=== PATIENT | female | born 1975 | race Caucasian/White ===

== ENCOUNTER 2016-05-31 13:06 | Emergency (ER) | payer MEDICARE ==
--- NOTE | 2016-05-31 14:16 | EDM.PDOC ---
ED HISTORY OF PRESENT ILLNESS - General Chief Complaint: Respiratory Problem Stated Complaint: PNEMONIA/TOOTHACE Time Seen by Provider: 05/31/16 13:07 Source of Information: Reports: Patient History Limitations: Reports: No limitations - History of Present Illness INITIAL COMMENTS - FREE TEXT/NARRATIVE: History of present illness: [] Patient presents with cold symptoms with cough and chills. She has not measured any fevers denies being acutely short of breath but she is a smoker and has baseline level of difficulty breathing or exertion that is unchanged. Patient denies any vomiting or diarrhea, abdominal pain, sore throat or ear pain. Review of systems: As per history of present illness and below otherwise all systems reviewed and negative. Past medical history: As per history of present illness and as reviewed below otherwise noncontributory. Surgical history: As per history of present illness and as reviewed below otherwise noncontributory. Social history: No reported history of drug or alcohol abuse. Family history: As per history of present illness and as reviewed below otherwise noncontributory. Physical exam: General: Well developed, well nourished in NAD HEENT: Atraumatic, normocephalic, pupils reactive, negative for conjunctival pallor or scleral icterus, mucous membranes moist, throat clear, neck supple, nontender, trachea midline. Lungs: Clear to auscultation, breath sounds equal bilaterally, chest nontender. Heart: S1S2, regular, negative for clicks, rubs, or JVD. Abdomen: Soft, nondistended, nontender. Negative for masses or hepatosplenomegaly. Negative for costovertebral tenderness. Pelvis: Stable nontender. Genitourinary: Deferred. Rectal: Deferred. Extremities: Atraumatic, negative for cords or calf pain. Neurovascular unremarkable. Neuro: Awake, alert, oriented. Cranial nerves II through XII unremarkable. Cerebellum unremarkable. Motor and sensory unremarkable throughout. Exam nonfocal. Diagnostics: [] Chest x-ray and labs which are normal vital signs stable Therapeutics: [] Impression: [] Viral URI Plan: [] Followup PMD return if symptoms worsen Definitive disposition and diagnosis as appropriate pending reevaluation and review of above. - Related Data Allergies/ADRs: Allergies Allergy/AdvReac Type Severity Reaction Status Date / Time No Known Allergies Allergy Verified 05/31/16 13:16 Home Meds: Home Meds ARIPiprazole [Abilify] 5 mg PO DAILY 10/09/14 [History] Lisinopril 20 mg PO DAILY 05/31/16 [History] atoMOXetine HCl [Strattera] 1 cap PO DAILY 05/31/16 [History] lamoTRIgine [Lamictal] 50 mg PO DAILY 05/31/16 [History] Past Medical History - Past Health History Medical/Surgical History: Denies Medical/Surgical History Cardiovascular History: Reports: Hypertension Social & Family History - Family History Family Medical History: Noncontributory - Tobacco Use Smoking Status *Q: Current Every Day Smoker Years of Tobacco use: 20 Packs/Tins Daily: 1 Used Tobacco, but Quit: No Second Hand Smoke Exposure: Yes - Alcohol Use Days Per Week of Alcohol Use: 0 - Recreational Drug Use Recreational Drug Use: Yes Drug Use in Last 12 Months: Yes Recreational Drug Type: Reports: Marijuana/Hashish Recreational Drug Use Frequency: Daily - Living Situation & Occupation Living situation: Reports: single Occupation: employed ED ROS GENERAL - Review of Systems Review Of Systems: See Below (See history of present illness) ED EXAM, GENERAL - Physical Exam Exam: See Below (See history of present illness) Course - Vital Signs Last Recorded V/S: Last Vital Signs Temp 35.9 C 05/31/16 13:06 Pulse 114 H 05/31/16 13:06 Resp 18 05/31/16 13:06 BP 140/93 H 05/31/16 13:06 Pulse Ox 96 05/31/16 13:06 - Orders/Labs/Meds Orders: Active Orders 24 hr Category Date Time Status Chest 2V [CR] Stat Exams 05/31/16 13:20 Taken Labs: Laboratory Tests 05/31/16 05/31/16 Range/Units 13:27 13:27 WBC 8.27 (4.0-11.0) K/uL RBC 5.21 (4.30-5.90) M/uL Hgb 16.2 H (12.0-16.0) g/dL Hct 47.6 H (36.0-46.0) % MCV 91.4 (80.0-98.0) fL MCH 31.1 (27.0-32.0) pg MCHC 34.0 (31.0-37.0) g/dL RDW Std Deviation 44.2 (28.0-62.0) fl RDW Coeff of Kalpesh 13 (11.0-15.0) % Plt Count 333 (150-400) K/uL MPV 9.00 (7.40-12.00) fL Neut % (Auto) 63.8 (48.0-80.0) % Lymph % (Auto) 22.2 (16.0-40.0) % Norman % (Auto) 12.2 (0.0-15.0) % Eos % (Auto) 1.3 (0.0-7.0) % Baso % (Auto) 0.5 (0.0-1.5) % Neut # 5.3 (1.4-5.7) K/uL Lymph # 1.8 (0.6-2.4) K/uL Norman # 1.0 H (0.0-0.8) K/uL Eos # 0.1 (0.0-0.7) K/uL Baso # 0.0 (0.0-0.1) K/uL Nucleated RBC % 0.0 /100WBC Nucleated RBCs # 0 K/uL Sodium 136 (136-146) mmol/L Potassium 4.8 (3.5-5.1) mmol/L Chloride 104 (98-110) mmol/L Carbon Dioxide 24 (21-31) mmol/L BUN 10 (6.0-23.0) mg/dL Creatinine 1.1 (0.6-1.5) mg/dL Est Cr Clr Drug Dosing 67.89 mL/min Estimated GFR (MDRD) 54.7 ml/min Glucose 82 (60-110) mg/dL Calcium 9.2 (8.8-10.8) mg/dL Total Bilirubin 0.3 (0.1-1.5) mg/dL AST 22 (5-40) IU/L ALT 36 (8-54) IU/L Alkaline Phosphatase 112 (40-150) Total Protein 7.5 (6.0-8.0) g/dL Albumin 4.1 (3.5-5.0) g/dL Globulin 3.4 (2.0-3.5) g/dL Albumin/Globulin Ratio 1.2 L (1.3-2.8) Departure - Departure Time of Disposition: 14:15 Disposition: Home, Self-Care 01 Condition: good Clinical Impression: Viral URI Forms: ED Department Discharge Additional Instructions: The following information is given to patients seen in the emergency department who are being discharged to home. This information is to outline your options for follow-up care. We provide all patients seen in our emergency department with a follow-up referral. The need for follow-up, as well as the timing and circumstances, are variable depending upon the specifics of your emergency department visit. If you don't have a primary care physician on staff, we will provide you with a referral. We always advise you to contact your personal physician following an emergency department visit to inform them of the circumstance of the visit and for follow-up with them and/or the need for any referrals to a consulting specialist. The emergency department will also refer you to a specialist when appropriate. This referral assures that you have the opportunity for follow-up care with a specialist. All of these measure are taken in an effort to provide you with optimal care, which includes your follow-up. Under all circumstances we always encourage you to contact your private physician who remains a resource for coordinating your care. When calling for follow-up care, please make the office aware that this follow-up is from your recent emergency room visit. If for any reason you are refused follow-up, please contact the [facility] Emergency Department at and asked to speak to the emergency department charge nurse. Use her inhaler as directed Tylenol or Motrin for fevers and chills return here if symptoms worsen otherwise follow up with your PMD as needed [facility] [address] [place] [id number] - My Orders Last 24 Hours: My Active Orders 05/31/16 13:20 Chest 2V [CR] Stat - Assessment/Plan Last 24 Hours: My Active Orders 05/31/16 13:20 Chest 2V [CR] Stat
[2016-05-31 14:28] VITALS: BP 155/97
--- NOTE | 2016-06-03 14:53 | CR ---
EXAM DATE: 05/31/16 PATIENT'S AGE: 40 Patient: EUGENE DEMPSEY Facility: [place], [place] Site . Site : 1975 Study: XRay Chest [id number] 1:52:10 PM Ordering Physician: Doctor Kunz Final Report: INDICATION: sick/cold SOB 2 View Chest. Findings: The lungs are clear. Pulmonary vascularity, mediastinum and cardiac silhouette are within normal limits. No effusions and no pneumothorax. Osseous structures appear unremarkable. Impression: No evidence of acute cardiopulmonary disease. Dictated by: Moise Gold MD @ 05/31/2016 13:55:40 (Electronic Signature) Report Signed by Proxy and Original Signed Document filed in the Medical Record. MTDD
== END 2016-05-31 14:25 | disposition home or self-care (01) ==
LOC: MW.ED 13:06
DX: J06.9 Acute upper respiratory infection, unspecified (principal); I10 Essential (primary) hypertension; F17.210 Nicotine dependence, cigarettes, uncomplicated; Z79.899 Other long term (current) drug therapy
CPT/HCPCS: 36415; 71020; 71020-26; 80053; 85025; 99282; 99283

== ENCOUNTER → 2016-07-17 | Outpatient (CLI) | payer MEDICARE | LOC: MW.CHFP 08:00 | PROVIDERS: ATTEND Nurse Practitioner Family | DX: F32.9 Major depressive disorder, single episode, unspecified (principal); F31.9 Bipolar disorder, unspecified; Z86.010 Personal history of colon polyps | CPT/HCPCS: G0463 ==

== ENCOUNTER 2017-05-15 10:41 | Day surgery (SDC) | payer MEDICARE, OTHER ==
[~2017-05-15 10:41] MED LIST: Lactated Ringers 1,000 ML IV SCH; Sodium Chloride 0.9% 10 ML Syringe FLUSH PRN; Sodium Chloride 0.9% 2.5 ML Syringe FLUSH PRN
--- NOTE | 2017-05-15 12:11 | PCM.PREANE ---
Preanesthetic Assessment - Anesthesia/Transfusion/Family Hx Anesthesia History: Prior Anesthesia Without Reaction Other Type of Anesthesia Reaction Comment: states she needs "more" anesthesia because she is a redhead Family History of Anesthesia Reaction: No Transfusion History: No Prior Transfusion(s) Intubation History: Unknown - Review of Systems General: No Symptoms Pulmonary: No Symptoms Cardiovascular: No Symptoms Gastrointestinal: Abdominal Pain, Constipation Neurological: No Symptoms Other: Reports: None - Physical Assessment O2 Sat by Pulse Oximetry: 99 Respiratory Rate: 16 Vital Signs: Last Vital Signs Temp 37 C 05/15/17 10:59 Pulse 100 05/15/17 10:59 Resp 16 05/15/17 10:59 BP 125/71 05/15/17 10:59 Pulse Ox 99 05/15/17 10:59 Height: 1.73 m Weight: 108.862 kg ASA Class: 3 Mental Status: Alert & Oriented x3 Airway Class: Mallampati = 2 Dentition: Reports: Normal Dentition Thyro-Mental Finger Breadths: 2 Mouth Opening Finger Breadths: 2 ROM/Head Extension: Limited/Partial Lungs: Clear to Auscultation, Normal Respiratory Effort Cardiovascular: Regular Rate, Regular Rhythm - Allergies Allergies/Adverse Reactions: Allergies Allergy/AdvReac Type Severity Reaction Status Date / Time ciprofloxacin [From Cipro] Allergy Hallucinati Verified 05/14/17 11:14 ons - Blood Blood Available: No - Anesthesia Plan Pre-Op Medication Ordered: None - Acknowledgements Anesthesia Type Planned: MAC Pt an Appropriate Candidate for the Planned Anesthesia: Yes Alternatives and Risks of Anesthesia Discussed w Pt/Guardian: Yes Pt/Guardian Understands and Agrees with Anesthesia Plan: Yes PreAnesthesia Questionnaire - Past Health History Medical/Surgical History: Denies Medical/Surgical History HEENT History: Reports: Sinusitis Other HEENT History: wears glasses/contacts Cardiovascular History: Reports: Hypertension Respiratory History: Reports: Asthma Other Respiratory History: uses inhaler weekly Gastrointestinal History: Reports: Chronic Constipation, Colon Polyp, GERD, PUD 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, Musculoskeletal History: Reports: Other (See Below) Other Musculoskeletal History: states "I think I have fibromalgia" not diagnosed Psychiatric History: Reports: ADHD, Anxiety, Bipolar, Depression Endocrine/Metabolic History: Reports: Obesity/BMI 30+ (BMI 36.5) Dermatologic History: Reports: Other (See Below) Other Dermatologic History: dermatagraphism - Past Surgical History HEENT Surgical History: Reports: Tonsillectomy GI Surgical History: Reports: Colonoscopy (7 years ago), Other (See Below) Other GI Surgeries/Procedures: benign tumor removed from abdomen Female Surgical History: Reports: LEEP, Other (See Below) Other Female Surgeries/Procedures: laparoscopy for removal of endometriosis - SUBSTANCE USE Smoking Status *Q: Current Every Day Smoker (1/2 ppd) Tobacco Use Within Last Twelve Months: Cigarettes Second Hand Smoke Exposure: Yes Days Per Week of Alcohol Use: 0 Recreational Drug Use History: Yes Recreational Drug Type: Reports: Marijuana/Hashish Recreational Drug Last Use: 1 month ago- states uses "occasionally" - HOME MEDS Home Medications: Home Meds ARIPiprazole [Abilify] 10 mg PO DAILY 10/09/14 [History] Lisinopril 10 mg PO DAILY 05/31/16 [History] atoMOXetine HCl [Strattera] 100 mg PO DAILY 05/31/16 [History] lamoTRIgine [Lamictal] 100 mg PO DAILY 05/31/16 [History] Albuterol [Proair HFA] 1 - 2 puff INH Q4H PRN 05/14/17 [History] Norethindrone [Paulina] 0.35 mg PO DAILY 05/14/17 [History] atoMOXetine [Strattera] 40 mg PO DAILY 05/14/17 [History] - CURRENT (IN HOUSE) MEDS Current Meds: Current Medications Lactated Ringer's (Ringers, Lactated) 1,000 mls @ 125 mls/hr IV ASDIRECTED ESTEPHANIE Sodium Chloride (Saline Flush) 10 ml FLUSH ASDIRECTED PRN PRN Reason: Keep Vein Open Sodium Chloride (Saline Flush) 2.5 ml FLUSH ASDIRECTED PRN PRN Reason: Keep Vein Open Sodium Chloride (Saline Flush) 10 ml FLUSH ASDIRECTED PRN PRN Reason: Keep Vein Open Sodium Chloride (Saline Flush) 2.5 ml FLUSH ASDIRECTED PRN PRN Reason: Keep Vein Open
[2017-05-15] MEDS ORDERED: Propofol 200 MG/20 ML SDV ONE (12:35)
[2017-05-15] MEDS ORDERED: fentaNYL 100 MCG/2 ML SDV ONE (12:35)
[2017-05-15] MEDS ORDERED: Midazolam 1 MG/ML 2 ML SDV ONE (12:35)
--- NOTE | 2017-05-15 13:33 | PCM.OPNOTE ---
- General Post-Op/Procedure Note Date of Surgery/Procedure: 05/15/17 Operative Procedure(s): Diagnostic colonoscopy Findings: Grade 3 hemorrhoids, sigmoid colon polyp, transverse colon polyp x 2 Pre Op Diagnosis: Change in bowel habits Post-Op Diagnosis: Colon polyps, grade 3 hemorrhoids, IBS Anesthesia Technique: MAC Primary Surgeon: Moraima Iverson Condition: Good
[2017-05-15 13:54] VITALS: BP 114/76
--- NOTE | 2017-05-15 20:44 | OR ---
SURGEON: MORAIMA IVERSON MD DATE OF PROCEDURE: 05/15/2017 PREOPERATIVE DIAGNOSIS: Change in bowel habits. POSTOPERATIVE DIAGNOSES: 1. Grade 3 hemorrhoids. 2. Transverse colon polyps x2. 3. Sigmoid colon polyp. PROCEDURE PERFORMED: Diagnostic colonoscopy. ENDOSCOPIST: Moraima Iverson MD. ANESTHESIA: MAC. INSTRUMENT USED: Olympus colonoscope. EXTENT OF EXAM: To the cecum. PREPARATION: Good. LIMITATIONS: None. INDICATION FOR EXAMINATION: The patient is a 41-year-old female, who presents with abrupt change in her bowel habits. The decision was made to perform a diagnostic colonoscopy. We discussed the procedure, expected perioperative course, and risks including bleeding, infection, or damage to surrounding structures including perforation. The patient verbalized understanding and wishes to proceed. PROCEDURE IN DETAIL: The patient was brought to the endoscopy suite and placed in the left lateral decubitus position. A time-out was completed verifying the patient's name, age, date of , allergies, and procedure to be performed. Monitored anesthesia care was induced and continuous oxygen was provided via nasal cannula throughout the procedure. After adequate sedation was achieved, a digital rectal exam was performed. This exam was within normal limits. A well lubricated colonoscope was inserted in the rectum and advanced under direct visualization to the level of the cecum. Cecum was identified by both visual and anatomic landmarks. A photograph was taken of the cecal cap, however, I was unable to retroflex the scope within the cecum due to looping of the scope more proximally. The scope was then fully withdrawn while examining the color, texture, anatomy, and integrity of the mucosa from the cecum to the anal canal. The patient was found to have two polyps within the transverse colon and these were removed using a cold biopsy forceps. The patient had a 3 to 4 mm polyp in the distal sigmoid colon at 20 cm. This was removed using a cold snare. The scope was then brought into the rectum and retroflexed to allow visualization of the anal canal opening. The patient was found to have grade 3 hemorrhoids. The scope was then straightened out and removed from the patient. The cecum to anus time was 26 minutes. The patient tolerated the procedure well and was taken to the PACU in stable condition. ENDOSCOPIC DIAGNOSES: 1. Grade 3 hemorrhoids. 2. Transverse colon polyps x2. 3. Sigmoid colon polyp. RECOMMENDATIONS: Follow up in clinic in 2 weeks. NANETTE / MODL /[id number]
== END 2017-05-15 14:09 | disposition home or self-care (01) ==
LOC: MW.SDS 10:41
PROVIDERS: ATTEND Surgery
DX: D12.5 Benign neoplasm of sigmoid colon (principal); D12.3 Benign neoplasm of transverse colon; K64.2 Third degree hemorrhoids; J45.909 Unspecified asthma, uncomplicated; F31.9 Bipolar disorder, unspecified; I10 Essential (primary) hypertension; J32.9 Chronic sinusitis, unspecified; M54.12 Radiculopathy, cervical region; F17.210 Nicotine dependence, cigarettes, uncomplicated; E66.9 Obesity, unspecified; Z68.36 Body mass index [BMI] 36.0-36.9, adult; Z87.19 Personal history of other diseases of the digestive system; Z88.1 Allergy status to other antibiotic agents; Z79.899 Other long term (current) drug therapy; Z90.89 Acquired absence of other organs
CPT/HCPCS: 45380; 45385; 81025; 88305; J2250; J3010; 00811; J2704

== ENCOUNTER 2017-06-01 08:39 | Emergency (ER) | payer MEDICARE ==
--- NOTE | 2017-06-01 09:57 | EDM.PDOCBH ---
ED HPI GENERAL MEDICAL PROBLEM - General Chief Complaint: Behavioral/Psych Stated Complaint: MENTAL ISSUES Time Seen by Provider: 06/01/17 09:10 Source of Information: Reports: Patient History Limitations: Reports: No Limitations - History of Present Illness INITIAL COMMENTS - FREE TEXT/NARRATIVE: History of present illness: []Patient has a history of bipolar disorder and has been manic and hallucinating. She has not slept in 4 days she denies being suicidal or homicidal as a good family support system. She called police to bring her into the ER. On arrival here she is cooperative and not has suicidal or homicidal. Review of systems: As per history of present illness and below otherwise all systems reviewed and negative. Past medical history: As per history of present illness and as reviewed below otherwise noncontributory. Surgical history: As per history of present illness and as reviewed below otherwise noncontributory. Social history: No reported history of drug or alcohol abuse. Family history: As per history of present illness and as reviewed below otherwise noncontributory. Physical exam: General: Well developed, well nourished in NAD HEENT: Atraumatic, normocephalic, pupils reactive, negative for conjunctival pallor or scleral icterus, mucous membranes moist, throat clear, neck supple, nontender, trachea midline. Lungs: Clear to auscultation, breath sounds equal bilaterally, chest nontender. Heart: S1S2, regular, negative for clicks, rubs, or JVD. Abdomen: Soft, nondistended, nontender. Negative for masses or hepatosplenomegaly. Negative for costovertebral tenderness. Pelvis: Stable nontender. Genitourinary: Deferred. Rectal: Deferred. Extremities: Atraumatic, negative for cords or calf pain. Neurovascular unremarkable. Neuro: Awake, alert, oriented. Cranial nerves II through XII unremarkable. Cerebellum unremarkable. Motor and sensory unremarkable throughout. Exam nonfocal. Diagnostics: [] Therapeutics: []Observed in the ED, discussion with family at the bedside performing a plan to discharge her home safely. Impression: []Bipolar disorder, insomnia Plan: []Ativan daily at bedtime Definitive disposition and diagnosis as appropriate pending reevaluation and review of above. - Related Data Allergies Allergy/AdvReac Type Severity Reaction Status Date / Time ciprofloxacin [From Cipro] Allergy Hallucinati Verified 05/14/17 11:14 ons Home Meds: Home Meds ARIPiprazole [Abilify] 10 mg PO DAILY 10/09/14 [History] Lisinopril 10 mg PO DAILY 05/31/16 [History] atoMOXetine HCl [Strattera] 100 mg PO DAILY 05/31/16 [History] lamoTRIgine [Lamictal] 100 mg PO DAILY 05/31/16 [History] Albuterol [Proair HFA] 1 - 2 puff INH Q4H PRN 05/14/17 [History] Norethindrone [Paulina] 0.35 mg PO DAILY 05/14/17 [History] atoMOXetine [Strattera] 40 mg PO DAILY 05/14/17 [History] LORazepam [Ativan] 0.5 mg PO QPM PRN #5 tablet 06/01/17 [Rx] Past Medical History - Past Health History Medical/Surgical History: Denies Medical/Surgical History HEENT History: Reports: Sinusitis Other HEENT History: wears glasses/contacts Cardiovascular History: Reports: Hypertension Respiratory History: Reports: Asthma Other Respiratory History: uses inhaler weekly Gastrointestinal History: Reports: Chronic Constipation, Colon Polyp, GERD, PUD 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, Musculoskeletal History: Reports: Other (See Below) Other Musculoskeletal History: states "I think I have fibromalgia" not diagnosed Psychiatric History: Reports: ADHD, Bipolar, Depression Endocrine/Metabolic History: Reports: Obesity/BMI 30+ Dermatologic History: Reports: Other (See Below) Other Dermatologic History: dermatagraphism - Past Surgical History HEENT Surgical History: Reports: Tonsillectomy GI Surgical History: Reports: Colonoscopy, Other (See Below) Other GI Surgeries/Procedures: benign tumor removed from abdomen Female Surgical History: Reports: LEEP, Other (See Below) Other Female Surgeries/Procedures: laparoscopy for removal of endometriosis Social & Family History - Family History Family Medical History: Noncontributory - Tobacco Use Smoking Status *Q: Current Every Day Smoker Years of Tobacco use: 20 Packs/Tins Daily: 0.5 Used Tobacco, but Quit: No Second Hand Smoke Exposure: Yes - Caffeine Use Caffeine Use: Reports: Coffee, Energy Drinks, Soda, Tea - Alcohol Use Days Per Week of Alcohol Use: 0 - Recreational Drug Use Recreational Drug Use: Yes Drug Use in Last 12 Months: Yes Recreational Drug Type: Reports: Marijuana/Hashish Recreational Drug Use Frequency: Not Used In Over 1 Month Recreational Drug Last Use: 1 month ago- states uses "occasionally" - Living Situation & Occupation Living situation: Reports: Single Occupation: Employed ED ROS GENERAL - Review of Systems Review Of Systems: See Below (See history of present illness) ED EXAM, BEHAVIORAL HEALTH - Physical Exam Exam: See Below (The history of present illness) COURSE, BEHAVIORAL HEALTH COMP - Course Vital Signs: Last Vital Signs Temp 98.1 F 06/01/17 10:17 Pulse 106 H 06/01/17 10:17 Resp 16 06/01/17 10:17 BP 154/110 H 06/01/17 10:17 Pulse Ox 97 06/01/17 10:17 Departure - Departure Time of Disposition: 10:31 Disposition: Home, Self-Care 01 Condition: Good Clinical Impression: Bipolar disorder Qualifiers: Active/Remission status: currently active Current bipolar episode type: hypomanic Qualified Code(s): F31.0 - Bipolar disorder, current episode hypomanic Insomnia Qualifiers: Insomnia type: due to other mental disorder Qualified Code(s): F51.05 - Insomnia due to other mental disorder; F99 - Mental disorder, not otherwise specified; F99 - Mental disorder, not otherwise specified - Discharge Information Prescriptions: LORazepam [Ativan] 0.5 mg PO QPM PRN #5 tablet PRN Reason: Insomnia Referrals: Kristopher Zepeda MD [Primary Care Provider] - Forms: ED Department Discharge Additional Instructions: The following information is given to patients seen in the emergency department who are being discharged to home. This information is to outline your options for follow-up care. We provide all patients seen in our emergency department with a follow-up referral. The need for follow-up, as well as the timing and circumstances, are variable depending upon the specifics of your emergency department visit. If you don't have a primary care physician on staff, we will provide you with a referral. We always advise you to contact your personal physician following an emergency department visit to inform them of the circumstance of the visit and for follow-up with them and/or the need for any referrals to a consulting specialist. The emergency department will also refer you to a specialist when appropriate. This referral assures that you have the opportunity for follow-up care with a specialist. All of these measure are taken in an effort to provide you with optimal care, which includes your follow-up. Under all circumstances we always encourage you to contact your private physician who remains a resource for coordinating your care. When calling for follow-up care, please make the office aware that this follow-up is from your recent emergency room visit. If for any reason you are refused follow-up, please contact the [facility] Emergency Department at and asked to speak to the emergency department charge nurse. Ativan 2 at bedtime 5 tablets prescribed. [facility] [address] [place] [id number]
[2017-06-01 10:50] VITALS: BP 139/101
== END 2017-06-01 10:46 | disposition home or self-care (01) ==
LOC: MW.ED 08:39
DX: F31.0 Bipolar disorder, current episode hypomanic (principal); F51.05 Insomnia due to other mental disorder; I10 Essential (primary) hypertension; J45.909 Unspecified asthma, uncomplicated; K21.9 Gastro-esophageal reflux disease without esophagitis; F17.210 Nicotine dependence, cigarettes, uncomplicated; Z79.899 Other long term (current) drug therapy; Z88.1 Allergy status to other antibiotic agents
CPT/HCPCS: 99283

== ENCOUNTER 2017-06-14 11:20 | Emergency (ER) | payer MEDICARE ==
[2017-06-14] MEDS ORDERED: Sodium Chloride 0.9% 10 ML Syringe FLUSH PRN (11:50)
[2017-06-14] MEDS ORDERED: Sodium Chloride 0.9% 2.5 ML Syringe FLUSH PRN (11:50)
--- NOTE | 2017-06-14 11:50 | EDM.PDOC ---
ED HPI GENERAL MEDICAL PROBLEM - General Chief Complaint: Chest Pain Stated Complaint: CHEST PAIN Time Seen by Provider: 06/14/17 11:36 Source of Information: Reports: Patient History Limitations: Reports: No Limitations - History of Present Illness INITIAL COMMENTS - FREE TEXT/NARRATIVE: HISTORY AND PHYSICAL: History of present illness: Lindsey is a 41-year-old female here with complaint of chest pain and shortness of breath. Patient has a history of bipolar disorder and scattered thought process. She states that she has had chest pain on and off for the past 2 weeks and shortness of breath. She has been using her rescue inhaler which does help. She denies fever. Review of systems: As per history of present illness and below otherwise all systems reviewed and negative. Past medical history: As per history of present illness and as reviewed below otherwise noncontributory. Surgical history: As per history of present illness and as reviewed below otherwise noncontributory. Social history: Current every day smoker Denies illicit drug use. Family history: As per history of present illness and as reviewed below otherwise noncontributory. Physical exam: HEENT: Atraumatic, normocephalic, pupils reactive, negative for conjunctival pallor or scleral icterus, mucous membranes moist, throat clear, neck supple, nontender, trachea midline. Lungs: Diffuse rhonchi and end expiratory wheezing. She has tenderness to palpation of anterior chest wall. Heart: Tachycardic, S1S2, negative for clicks, rubs, or JVD. Abdomen: Soft, nondistended, mild tenderness to palpation of epigastrum. Negative for masses or hepatosplenomegaly. Negative for costovertebral tenderness. Pelvis: Stable nontender. Genitourinary: Deferred. Rectal: Deferred. Extremities: Atraumatic, negative for cords or calf pain. Neurovascular unremarkable. Neuro: Awake, alert, oriented. Cranial nerves II through XII unremarkable. Cerebellum unremarkable. Motor and sensory unremarkable throughout. Exam nonfocal. Diagnostics: [EKG, chest x-ray, CBC, CMP, TSH, troponin] Therapeutics: [DuoNeb - patient reports improvement in chest pressure and breathing with DuoNeb. Solu-Medrol] Impression: [Reactive airway disease] Plan: [Chest x-ray unremarkable. EKG shows sinus tachycardia. CBC, CMP, troponin, and TSH unremarkable. Patient instructed to continue using her rescue inhaler every 4-6 hours as needed and take Medrol Dosepak as instructed. Advised to follow-up with her primary care provider.] Definitive disposition and diagnosis as appropriate pending reevaluation and review of above. Onset: Gradual Duration: Week(s): (2), Intermittent, Waxing/Waning Location: Reports: Chest, Abdomen Quality: Reports: Pressure Severity: Mild Improves with: Reports: Rest Worsens with: Reports: Movement Associated Symptoms: Reports: Cough, Shortness of Breath. Denies: cough w sputum, Diaphoresis, Fever/Chills, Nausea/Vomiting Left Chest Pain Score (Numeric/FACES): 5 - Related Data Allergies Allergy/AdvReac Type Severity Reaction Status Date / Time ciprofloxacin [From Cipro] Allergy Hallucinati Verified 06/14/17 11:26 ons Home Meds: Home Meds ARIPiprazole [Abilify] 10 mg PO DAILY 10/09/14 [History] Lisinopril 10 mg PO DAILY 05/31/16 [History] atoMOXetine HCl [Strattera] 100 mg PO DAILY 05/31/16 [History] lamoTRIgine [Lamictal] 100 mg PO DAILY 05/31/16 [History] Albuterol [Proair HFA] 1 - 2 puff INH Q4H PRN 05/14/17 [History] Norethindrone [Paulina] 0.35 mg PO DAILY 05/14/17 [History] atoMOXetine [Strattera] 40 mg PO DAILY 05/14/17 [History] LORazepam [Ativan] 0.5 mg PO QPM PRN #5 tablet 06/01/17 [Rx] methylPREDNISolone [Medrol] 4 mg PO ASDIRECTED #1 tab.ds.pk 06/14/17 [Rx] Past Medical History - Past Health History Medical/Surgical History: Denies Medical/Surgical History HEENT History: Reports: Sinusitis Other HEENT History: wears glasses/contacts Cardiovascular History: Reports: Hypertension Respiratory History: Reports: Asthma Other Respiratory History: uses inhaler weekly Gastrointestinal History: Reports: Chronic Constipation, Colon Polyp, GERD, PUD [employer] RECEPTIONIST History: Reports: 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, Musculoskeletal History: Reports: Other (See Below) Other Musculoskeletal History: states "I think I have fibromalgia" not diagnosed Psychiatric History: Reports: ADHD, Bipolar, Depression Endocrine/Metabolic History: Reports: Obesity/BMI 30+ Dermatologic History: Reports: Other (See Below) Other Dermatologic History: dermatagraphism - Past Surgical History HEENT Surgical History: Reports: Tonsillectomy GI Surgical History: Reports: Colonoscopy, Other (See Below) Other GI Surgeries/Procedures: benign tumor removed from abdomen Female Surgical History: Reports: LEEP, Other (See Below) Other Female Surgeries/Procedures: laparoscopy for removal of endometriosis Social & Family History - Family History Family Medical History: Noncontributory - Tobacco Use Smoking Status *Q: Current Every Day Smoker Years of Tobacco use: 20 Packs/Tins Daily: 0.5 Used Tobacco, but Quit: No Second Hand Smoke Exposure: Yes - Caffeine Use Caffeine Use: Reports: Coffee, Soda - Alcohol Use Days Per Week of Alcohol Use: 0 - Recreational Drug Use Recreational Drug Use: Yes Drug Use in Last 12 Months: Yes Recreational Drug Type: Reports: Marijuana/Hashish Other Recreational Drug Type: occasional use Recreational Drug Use Frequency: Not Used In Over 1 Month Recreational Drug Last Use: 1 month ago- states uses "occasionally" - Living Situation & Occupation Living situation: Reports: Single Occupation: Employed ED ROS GENERAL - Review of Systems Review Of Systems: ROS reveals no pertinent complaints other than HPI. ED EXAM, GENERAL - Physical Exam Exam: See Below (see dictation) Course - Vital Signs Last Recorded V/S: Last Vital Signs Temp 35.9 C 06/14/17 11:21 Pulse 118 H 06/14/17 11:21 Resp 20 06/14/17 11:21 BP 114/76 06/14/17 11:21 Pulse Ox - Orders/Labs/Meds Orders: Active Orders 24 hr Category Date Time Status EKG Documentation Completion [RC] STAT Care 06/14/17 11:50 Active Pulse Oximetry [RC] ASDIRECTED Care 06/14/17 11:50 Active RT Aerosol Therapy [RC] ASDIRECTED Care 06/14/17 11:53 Active Chest 2V [CR] Stat Exams 06/14/17 11:52 Taken Sodium Chloride 0.9% [Saline Flush] Med 06/14/17 11:50 Active 10 ml FLUSH ASDIRECTED PRN Sodium Chloride 0.9% [Saline Flush] Med 06/14/17 11:50 Active 2.5 ml FLUSH ASDIRECTED PRN Saline Lock Insert [OM.PC] Stat [facility] 06/14/17 11:50 Ordered Medication Orders Sodium Chloride (Saline Flush) 10 ml FLUSH ASDIRECTED PRN PRN Reason: Keep Vein Open Sodium Chloride (Saline Flush) 2.5 ml FLUSH ASDIRECTED PRN PRN Reason: Keep Vein Open Labs: Laboratory Tests 06/14/17 06/14/17 Range/Units 11:25 11:25 WBC 10.78 (4.0-11.0) K/uL RBC 5.07 (4.30-5.90) M/uL Hgb 15.8 (12.0-16.0) g/dL Hct 45.9 (36.0-46.0) % MCV 90.5 (80.0-98.0) fL MCH 31.2 (27.0-32.0) pg MCHC 34.4 (31.0-37.0) g/dL RDW Std Deviation 46.2 (28.0-62.0) fl RDW Coeff of Kalpesh 14 (11.0-15.0) % Plt Count 396 (150-400) K/uL MPV 8.90 (7.40-12.00) fL Neut % (Auto) 53.5 (48.0-80.0) % Lymph % (Auto) 37.3 (16.0-40.0) % Meagher % (Auto) 6.2 (0.0-15.0) % Eos % (Auto) 2.5 (0.0-7.0) % Baso % (Auto) 0.5 (0.0-1.5) % Neut # (Auto) 5.8 H (1.4-5.7) K/uL Lymph # (Auto) 4.0 H (0.6-2.4) K/uL Meagher # (Auto) 0.7 (0.0-0.8) K/uL Eos # (Auto) 0.3 (0.0-0.7) K/uL Baso # (Auto) 0.1 (0.0-0.1) K/uL Nucleated RBC % 0.0 /100WBC Nucleated RBCs # 0 K/uL Sodium 137 (136-145) mmol/L Potassium 3.6 (3.5-5.1) mmol/L Chloride 101 (98-107) mmol/L Carbon Dioxide 28.3 (21.0-32.0) mmol/L BUN 25 H (7.0-18.0) mg/dL Creatinine 1.6 H (0.6-1.0) mg/dL Est Cr Clr Drug Dosing 46.21 mL/min Estimated GFR (MDRD) 35.3 ml/min Glucose 97 (74-106) mg/dL Calcium 9.2 (8.5-10.1) mg/dL Total Bilirubin 0.4 (0.2-1.0) mg/dL AST 20 (15-37) IU/L ALT 31 (14-63) IU/L Alkaline Phosphatase 97 (46-116) U/L Troponin I < 0.050 (0.000-0.056) ng/mL Total Protein 7.4 (6.4-8.2) g/dL Albumin 3.8 (3.4-5.0) g/dL Globulin 3.6 H (2.0-3.5) g/dL Albumin/Globulin Ratio 1.1 L (1.3-2.8) TSH 3rd Generation 2.81 (0.36-3.74) uIU/mL Meds: Medications Generic Name Dose Route Start Last Admin Trade Name Freq PRN Reason Stop Dose Admin Sodium Chloride 10 ml 06/14/17 11:50 Saline Flush FLUSH ASDIRECTED PRN Keep Vein Open Sodium Chloride 2.5 ml 06/14/17 11:50 Saline Flush FLUSH ASDIRECTED PRN Keep Vein Open Discontinued Medications Generic Name Dose Route Start Last Admin Trade Name Freq PRN Reason Stop Dose Admin Albuterol/Ipratropium 3 ml 06/14/17 11:52 06/14/17 12:02 Duoneb 3.0-0.5 Mg/3 Ml NEB 06/14/17 11:53 3 ml ONETIME ONE Administration Methylprednisolone Sodium Succinate 125 mg 06/14/17 13:06 Solu-Medrol IVPUSH 06/14/17 13:07 ONETIME ONE Departure - Departure Time of Disposition: 13:42 Disposition: Home, Self-Care 01 Condition: Good Clinical Impression: Reactive airway disease with acute exacerbation - Discharge Information Prescriptions: methylPREDNISolone [Medrol] 4 mg PO ASDIRECTED #1 tab.ds.pk Instructions: Asthma, Adult Referrals: PCP,None [Primary Care Provider] - Forms: ED Department Discharge Additional Instructions: The following information is given to patients seen in the emergency department who are being discharged to home. This information is to outline your options for follow-up care. We provide all patients seen in our emergency department with a follow-up referral. The need for follow-up, as well as the timing and circumstances, are variable depending upon the specifics of your emergency department visit. If you don't have a primary care physician on staff, we will provide you with a referral. We always advise you to contact your personal physician following an emergency department visit to inform them of the circumstance of the visit and for follow-up with them and/or the need for any referrals to a consulting specialist. The emergency department will also refer you to a specialist when appropriate. This referral assures that you have the opportunity for follow-up care with a specialist. All of these measure are taken in an effort to provide you with optimal care, which includes your follow-up. Under all circumstances we always encourage you to contact your private physician who remains a resource for coordinating your care. When calling for follow-up care, please make the office aware that this follow-up is from your recent emergency room visit. If for any reason you are refused follow-up, please contact the [facility] Emergency Department at and asked to speak to the emergency department charge nurse. Continue using rescue inhaler every 4-6 hours as needed and take Medrol Dosepak as instructed. Follow-up with your primary care provider. - My Orders Last 24 Hours: My Active Orders 06/14/17 11:50 EKG Documentation Completion [RC] STAT Pulse Oximetry [RC] ASDIRECTED Sodium Chloride 0.9% [Saline Flush] 10 ml FLUSH ASDIRECTED PRN Sodium Chloride 0.9% [Saline Flush] 2.5 ml FLUSH ASDIRECTED PRN Saline Lock Insert [OM.PC] Stat 06/14/17 11:52 Chest 2V [CR] Stat 06/14/17 11:53 RT Aerosol Therapy [RC] ASDIRECTED - Assessment/Plan Last 24 Hours: My Active Orders 06/14/17 11:50 EKG Documentation Completion [RC] STAT Pulse Oximetry [RC] ASDIRECTED Sodium Chloride 0.9% [Saline Flush] 10 ml FLUSH ASDIRECTED PRN Sodium Chloride 0.9% [Saline Flush] 2.5 ml FLUSH ASDIRECTED PRN Saline Lock Insert [OM.PC] Stat 06/14/17 11:52 Chest 2V [CR] Stat 06/14/17 11:53 RT Aerosol Therapy [RC] ASDIRECTED
[2017-06-14] MEDS ORDERED: Albuterol/Ipratropium 3.0-0.5 MG/3 ML Neb Soln NEB ONE (11:52)
[2017-06-14 12:16] LABS: CHLORIDE,CL 101 mmol/L (98-107); SODIUM,NA 137 mmol/L (136-145)
[2017-06-14] MEDS ORDERED: methylPREDNISolone Sodium Succinate 125 MG/2 ML SDV IVPUSH ONE (13:06)
[2017-06-14] MEDS ORDERED: methylPREDNISolone Sodium Succinate 125 MG/2 ML SDV ONE (13:46)
[2017-06-14 18:22] VITALS: BP 99/66
--- NOTE | 2017-06-16 14:38 | CR ---
EXAM DATE: 06/14/17 PATIENT'S AGE: 41 Patient: EUGENE DEMPSEY Facility: [place], [place] Site . Site : [id number] Study: XRay Chest [id number]/[id number] 12:23:49 PM Ordering Physician: Doctor Kunz Final Report: INDICATION: Chest pain/tightness TECHNIQUE: Chest 2 views. COMPARISON: None FINDINGS: Cardiovascular and mediastinum: Heart size and vasculature are normal in caliber and appearance. Mediastinum is within normal limits. Lungs and pleural spaces: Lungs are clear. No sign of infiltrate or mass. No sign of pleural effusion. No pneumothorax. Bones and soft tissues: No significant findings. IMPRESSION: Unremarkable chest. Dictated by Jonathan Morrison MD @ Jun 14 2017 12:40PM (Electronic Signature) Report Signed by Proxy. JUAN LUIS
== END 2017-06-14 13:55 | disposition home or self-care (01) ==
LOC: MW.ED 11:20
DX: J45.901 Unspecified asthma with (acute) exacerbation (principal); F17.210 Nicotine dependence, cigarettes, uncomplicated; F31.9 Bipolar disorder, unspecified; I10 Essential (primary) hypertension; Z79.899 Other long term (current) drug therapy; Z88.1 Allergy status to other antibiotic agents
CPT/HCPCS: 36415; 71046; 80053; 84443; 84484; 85025; 93005; 94640; 96374; 99284; J2930

== ENCOUNTER 2017-07-05 13:44 | Emergency (ER) | payer MEDICARE ==
--- NOTE | 2017-07-05 14:31 | EDM.PDOC ---
ED HPI GENERAL MEDICAL PROBLEM - General Chief Complaint: Skin Complaint Stated Complaint: GLANDS UNDER ARMPIT ARE SWOLLEN Time Seen by Provider: 07/05/17 14:01 Source of Information: Reports: Patient History Limitations: Reports: No Limitations - History of Present Illness INITIAL COMMENTS - FREE TEXT/NARRATIVE: HISTORY AND PHYSICAL: History of present illness: Patient is a 41-year-old female who presents to the emergency room with complaints of a abscess to the left axilla. She states she has had these prior and usually takes antibiotics to solve them. States several days ago she noticed a small circular red bump to the left axilla that has progressively gotten more red and larger in size. A small pustule is noted to the right axilla without any surrounding erythema. States she has had some body aches. She denies any abdominal pain, nausea, vomiting, diarrhea or constipation. States she has been eating and drinking appropriately. Review of systems: As per history of present illness and below otherwise all systems reviewed and negative. Past medical history: As per history of present illness and as reviewed below otherwise noncontributory. Surgical history: As per history of present illness and as reviewed below otherwise noncontributory. Social history: No reported history of drug or alcohol abuse. Family history: As per history of present illness and as reviewed below otherwise noncontributory. Physical exam: General: well-developed and well-nourished 41-year-old female. Alert and oriented. Nontoxic appearing and in no acute distress. HEENT: Atraumatic, normocephalic, pupils equal and reactive bilaterally, negative for conjunctival pallor or scleral icterus, mucous membranes moist, throat clear, neck supple, nontender, trachea midline. No drooling or trismus noted. No meningeal signs Lungs: Clear to auscultation, breath sounds equal bilaterally, chest nontender. Heart: S1S2, regular rate and rhythm without overt murmur Abdomen: Soft, nondistended, nontender. Negative for masses or hepatosplenomegaly. Negative for costovertebral tenderness. Pelvis: Stable nontender. Genitourinary: Deferred. Rectal: Deferred. Skin: Palm size area of erythema to the left axilla. In the center of the area appears to have a firm abscess non-indurated, approx 3cm. Small circular pustule noted to right axilla which is approximately 1 cm in diameter. Non- indurated. Otherwise skin is intact, warm, dry with no lesions or rashes noted. Extremities: Atraumatic, moves all extremities per self without difficulty or deficits,negative for cords or calf pain. Neurovascular unremarkable. Neuro: Awake, alert, oriented. Cranial nerves II through XII unremarkable. Cerebellum unremarkable. Motor and sensory unremarkable throughout. Exam nonfocal. Notes: Mother is at bedside and participating in the interviewing process. She states that they would like to get out of here quickly as they have other obligations to attend to I did outline the area of erythema to the left axilla. Does appear to have a central abscess with cellulitis surrounding it. We did discuss antibiotic options. Mom states with her psychiatric medications they are very picky about which ones they take as "most interfere with my Abilify". States she is very sensitive to medications. Will place her on Bactrim DS with mupricoin cream to apply topically. She is requesting something for pain management. We will give her some tramadol along with Zofran in case she does have any nausea with the pain medication. Upon getting the patient ready for discharge she had a blood pressure reading of 70s over 50. The nurses retook it and it was 80s over 50s. At this time I feel the patient needs IV lab work, fluids and a full workup. I expressed to the patient and her mother that I was uncomfortable with them going home with a blood pressure that low. The patient states that she is fine and would like to leave. Mom states that she feels that she is taking too much of her blood pressure medication and will have her follow up with her primary care to have this adjusted. I informed the patient that I will have them sign out AGAINST MEDICAL ADVICE if she does not want the labs, fluids and further evaluation. They're aware of the risks of leaving, and except those risks. We'll give her some instructions about the antibiotic use and strongly encouraged her to follow up with her primary care provider or return to the emergency room if symptoms worsen or new symptoms develop. Both voice understanding. Patient signed out AMA and is ambulatory, alert and oriented. Diagnostics: Declined Therapeutics: Declined Impression: Abscess Cellulitis Plan: 1. Please take the oral antibiotic as prescribed. Apply the mupriocin cream 3 times daily x 7 - 10 days to the area of redness. 2. Tylenol and/or ibuprofen as needed for pain and fever management. Tramadol has been prescribed for moderate to severe pain. This medication may cause drowsiness so do not take it while driving or needing to be functioning outside of the house. 3. Zofran as needed for nausea. 4. Please do not shave the area (either arm pit) until the infection has completely healed 5. Encourage plenty of fluids to prevent dehydration. Rest. Follow-up with your primary caregiver in the next 1-2 days. 6. Return to the ED as needed and as discussed. Definitive disposition and diagnosis as appropriate pending reevaluation and review of above. Duration: Day(s): Bilateral Arm Pain Score (Numeric/FACES): 6 - Related Data Allergies Allergy/AdvReac Type Severity Reaction Status Date / Time ciprofloxacin [From Cipro] Allergy Hallucinati Verified 07/05/17 13:58 ons Home Meds: Home Meds ARIPiprazole [Abilify] 10 mg PO DAILY 10/09/14 [History] Lisinopril 20 mg PO DAILY 05/31/16 [History] atoMOXetine HCl [Strattera] 100 mg PO DAILY 05/31/16 [History] lamoTRIgine [Lamictal] 100 mg PO DAILY 05/31/16 [History] Albuterol [Proair HFA] 1 - 2 puff INH Q4H PRN 05/14/17 [History] Norethindrone [Paulina] 0.35 mg PO DAILY 05/14/17 [History] atoMOXetine [Strattera] 40 mg PO DAILY 05/14/17 [History] LORazepam [Ativan] 0.5 mg PO QPM PRN #5 tablet 06/01/17 [Rx] Past Medical History - Past Health History Medical/Surgical History: Denies Medical/Surgical History HEENT History: Reports: Sinusitis Other HEENT History: wears glasses/contacts Cardiovascular History: Reports: Hypertension Respiratory History: Reports: Asthma Other Respiratory History: uses inhaler weekly Gastrointestinal History: Reports: Chronic Constipation, Colon Polyp, GERD, PUD 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: 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, Musculoskeletal History: Reports: Other (See Below) Other Musculoskeletal History: states "I think I have fibromalgia" not diagnosed Psychiatric History: Reports: ADHD, Bipolar, Depression Endocrine/Metabolic History: Reports: Obesity/BMI 30+ Dermatologic History: Reports: Other (See Below) Other Dermatologic History: dermatagraphism - Infectious Disease History Infectious Disease History: Reports: Chicken Pox - Past Surgical History HEENT Surgical History: Reports: Tonsillectomy GI Surgical History: Reports: Colonoscopy, Other (See Below) Other GI Surgeries/Procedures: benign tumor removed from abdomen Female Surgical History: Reports: LEEP, Other (See Below) Other Female Surgeries/Procedures: laparoscopy for removal of endometriosis Social & Family History - Family History Family Medical History: Noncontributory - Tobacco Use Smoking Status *Q: Current Every Day Smoker Years of Tobacco use: 20 Packs/Tins Daily: 0.5 Used Tobacco, but Quit: No Second Hand Smoke Exposure: Yes - Caffeine Use Caffeine Use: Reports: Coffee, Energy Drinks, Soda, Tea - Alcohol Use Days Per Week of Alcohol Use: 0 - Recreational Drug Use Recreational Drug Use: Yes Drug Use in Last 12 Months: Yes Recreational Drug Type: Reports: Marijuana/Hashish Other Recreational Drug Type: occasional use Recreational Drug Use Frequency: Not Used In Over 1 Month Recreational Drug Last Use: 1 month ago- states uses "occasionally" - Living Situation & Occupation Living situation: Reports: Single Occupation: Employed ED ROS GENERAL - Review of Systems Review Of Systems: ROS reveals no pertinent complaints other than HPI. ED EXAM, SKIN/RASH Exam: See Below (See dictation) Course - Vital Signs Last Recorded V/S: Last Vital Signs Temp 97.7 F 07/05/17 13:55 Pulse 124 H 07/05/17 13:55 Resp 18 07/05/17 13:55 BP 94/58 L 07/05/17 13:55 Pulse Ox 99 07/05/17 13:55 - Orders/Labs/Meds Orders: Active Orders 24 hr Category Date Time Status CBC WITH AUTO DIFF [HEME] Stat Lab 07/05/17 14:43 Ordered COMPREHENSIVE METABOLIC PN,CMP [CHEM] Stat Lab 07/05/17 14:43 Ordered CULTURE BLOOD [BC] Stat Lab 07/05/17 14:43 Ordered CULTURE BLOOD [BC] Stat Lab 07/05/17 14:43 Ordered LACTIC ACID,WHOLE BLOOD [BG] Stat Lab 07/05/17 14:43 Ordered Sodium Chloride 0.9% [Normal Saline] 1,000 ml Med 07/05/17 14:43 Ordered IV STAT Blood Culture x2 Reflex Set [OM.PC] Stat Oth 07/05/17 14:43 Ordered Medication Orders Sodium Chloride (Normal Saline) 1,000 mls @ 999 mls/hr IV STAT ONE Stop: 07/05/17 15:43 Meds: Medications Generic Name Dose Route Start Last Admin Trade Name Kerwin PRN Reason Stop Dose Admin Sodium Chloride 1,000 mls @ 999 mls/hr 07/05/17 14:43 Normal Saline IV 07/05/17 15:43 STAT ONE Departure - Departure Time of Disposition: 14:31 Disposition: Against Medical Advice 07 Clinical Impression: Abscess Cellulitis Qualifiers: Site of cellulitis: extremity Site of cellulitis of extremity: axilla Laterality: left Qualified Code(s): L03.112 - Cellulitis of left axilla - Discharge Information Instructions: Skin Abscess, [id number], Cellulitis, Adult, [id number] Referrals: PCP,None [Primary Care Provider] - Forms: ED Department Discharge Additional Instructions: The following information is given to patients seen in the emergency department who are being discharged to home. This information is to outline your options for follow-up care. We provide all patients seen in our emergency department with a follow-up referral. The need for follow-up, as well as the timing and circumstances, are variable depending upon the specifics of your emergency department visit. If you don't have a primary care physician on staff, we will provide you with a referral. We always advise you to contact your personal physician following an emergency department visit to inform them of the circumstance of the visit and for follow-up with them and/or the need for any referrals to a consulting specialist. The emergency department will also refer you to a specialist when appropriate. This referral assures that you have the opportunity for follow-up care with a specialist. All of these measure are taken in an effort to provide you with optimal care, which includes your follow-up. Under all circumstances we always encourage you to contact your private physician who remains a resource for coordinating your care. When calling for follow-up care, please make the office aware that this follow-up is from your recent emergency room visit. If for any reason you are refused follow-up, please contact the [facility] Emergency Department at and asked to speak to the emergency department charge nurse. [facility] [address] [place] [id number] 1. Please take the oral antibiotic as prescribed. Apply the new Lee cream 3 times daily x 7 - 10 days to the area of redness. 2. Tylenol and/or ibuprofen as needed for pain and fever management. Tramadol has been prescribed for moderate to severe pain. This medication may cause drowsiness so do not take it while driving or needing to be functioning outside of the house. 3. Zofran as needed for nausea. 4. Please do not shave the area (either arm pit) until the infection has completely healed 5. Encourage plenty of fluids to prevent dehydration. Rest. Follow-up with your primary caregiver in the next 1-2 days. 6. Return to the ED as needed and as discussed. - My Orders Last 24 Hours: My Active Orders 07/05/17 14:43 CBC WITH AUTO DIFF [HEME] Stat COMPREHENSIVE METABOLIC PN,CMP [CHEM] Stat CULTURE BLOOD [BC] Stat CULTURE BLOOD [BC] Stat LACTIC ACID,WHOLE BLOOD [BG] Stat Sodium Chloride 0.9% [Normal Saline] 1,000 ml IV STAT Blood Culture x2 Reflex Set [OM.PC] Stat - Assessment/Plan Last 24 Hours: My Active Orders 07/05/17 14:43 CBC WITH AUTO DIFF [HEME] Stat COMPREHENSIVE METABOLIC PN,CMP [CHEM] Stat CULTURE BLOOD [BC] Stat CULTURE BLOOD [BC] Stat LACTIC ACID,WHOLE BLOOD [BG] Stat Sodium Chloride 0.9% [Normal Saline] 1,000 ml IV STAT Blood Culture x2 Reflex Set [OM.PC] Stat
[2017-07-05] MEDS ORDERED: Sodium Chloride 0.9% 1,000 ML IV ONE (14:43)
[2017-07-05 16:33] VITALS: BP 76/41
== END 2017-07-05 14:40 | disposition left against medical advice (07) ==
LOC: MW.ED 13:44
DX: L03.112 Cellulitis of left axilla (principal); L02.412 Cutaneous abscess of left axilla; I10 Essential (primary) hypertension; F31.9 Bipolar disorder, unspecified; F17.210 Nicotine dependence, cigarettes, uncomplicated; F90.9 Attention-deficit hyperactivity disorder, unspecified type; Z90.49 Acquired absence of other specified parts of digestive tract; Z88.1 Allergy status to other antibiotic agents; Z79.899 Other long term (current) drug therapy; Z53.21 Procedure and treatment not carried out due to patient leaving prior to being seen by health care provider
CPT/HCPCS: 99282

== ENCOUNTER 2018-05-26 06:02 | Emergency (ER) | payer MEDICARE ==
--- NOTE | 2018-05-26 06:22 | EDM.PDOC ---
ED HPI GENERAL MEDICAL PROBLEM - General Chief Complaint: ENT Problem Stated Complaint: SOMETHING CAUGHT IN THROAT Time Seen by Provider: 05/26/18 06:19 Source of Information: Reports: Patient - History of Present Illness INITIAL COMMENTS - FREE TEXT/NARRATIVE: HISTORY AND PHYSICAL: History of present illness: [Patient presents with dysphasia, apparently she ate cucumber for supper last night which she inks may be stuck in her trachea however she is able to speak clearly with no stridor and is in no distress she has been eating and snacking since without any problems no regurgitation of food she is eating bread and drinking water here in front of me without any problem I did offer soft tissue neck/chest views however she refused ] Review of systems: As per history of present illness and below otherwise all systems reviewed and negative. Past medical history: As per history of present illness and as reviewed below otherwise noncontributory. Surgical history: As per history of present illness and as reviewed below otherwise noncontributory. Social history: No reported history of drug or alcohol abuse. Family history: As per history of present illness and as reviewed below otherwise noncontributory. Physical exam: HEENT: Atraumatic, normocephalic, pupils reactive, negative for conjunctival pallor or scleral icterus, mucous membranes moist, throat clear, neck supple, nontender, trachea midline. Lungs: Clear to auscultation, breath sounds equal bilaterally, chest nontender. Heart: S1S2, regular, negative for clicks, rubs, or JVD. Abdomen: Soft, nondistended, nontender. Negative for masses or hepatosplenomegaly. Negative for costovertebral tenderness. Pelvis: Stable nontender. Genitourinary: Deferred. Rectal: Deferred. Extremities: Atraumatic, negative for cords or calf pain. Neurovascular unremarkable. Neuro: Awake, alert, oriented. Cranial nerves II through XII unremarkable. Cerebellum unremarkable. Motor and sensory unremarkable throughout. Exam nonfocal. Diagnostics: [Soft tissue neck-a shunt refused imaging] Therapeutics: [Return if symptoms persist or worsen or new concerning symptoms develop Follow-up with general surgery consideration of EGD] Impression: [Dysphasia] Definitive disposition and diagnosis as appropriate pending reevaluation and review of above. - Related Data Allergies Allergy/AdvReac Type Severity Reaction Status Date / Time ciprofloxacin [From Cipro] Allergy Hallucinati Verified 05/26/18 06:12 ons Home Meds: Home Meds ARIPiprazole [Abilify] 10 mg PO DAILY 10/09/14 [History] Lisinopril 20 mg PO DAILY 05/31/16 [History] atoMOXetine HCl [Strattera] 100 mg PO DAILY 05/31/16 [History] lamoTRIgine [Lamictal] 100 mg PO DAILY 05/31/16 [History] Albuterol [Proair HFA] 1 - 2 puff INH Q4H PRN 05/14/17 [History] Norethindrone [Paulina] 0.35 mg PO DAILY 05/14/17 [History] atoMOXetine [Strattera] 40 mg PO DAILY 05/14/17 [History] LORazepam [Ativan] 0.5 mg PO QPM PRN #5 tablet 06/01/17 [Rx] Past Medical History - Past Health History Medical/Surgical History: Denies Medical/Surgical History HEENT History: Reports: Sinusitis Other HEENT History: wears glasses/contacts Cardiovascular History: Reports: Hypertension Respiratory History: Reports: Asthma Other Respiratory History: uses inhaler weekly Gastrointestinal History: Reports: Chronic Constipation, Colon Polyp, GERD, PUD 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: 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, Musculoskeletal History: Reports: Other (See Below) Other Musculoskeletal History: states "I think I have fibromalgia" not diagnosed Psychiatric History: Reports: ADHD, Bipolar, Depression Endocrine/Metabolic History: Reports: Obesity/BMI 30+ Dermatologic History: Reports: Other (See Below) Other Dermatologic History: dermatagraphism - Infectious Disease History Infectious Disease History: Reports: Chicken Pox - Past Surgical History HEENT Surgical History: Reports: Tonsillectomy GI Surgical History: Reports: Colonoscopy, Other (See Below) Other GI Surgeries/Procedures: benign tumor removed from abdomen Female Surgical History: Reports: LEEP, Other (See Below) Other Female Surgeries/Procedures: laparoscopy for removal of endometriosis Social & Family History - Family History Family Medical History: Noncontributory - Caffeine Use Caffeine Use: Reports: Coffee, Energy Drinks, Soda, Tea - Living Situation & Occupation Living situation: Reports: Single Occupation: Employed ED ROS GENERAL - Review of Systems Review Of Systems: See Below ED EXAM, GENERAL - Physical Exam Exam: See Below Course - Vital Signs Last Recorded V/S: Last Vital Signs Temp 97 F 05/26/18 06:09 Pulse 107 H 05/26/18 06:09 Resp 21 H 05/26/18 06:09 BP 150/114 H 05/26/18 06:09 Pulse Ox 99 05/26/18 06:09 - Orders/Labs/Meds Orders: Active Orders 24 hr Category Date Time Status Neck Soft Tissue [CR] Stat Exams 05/26/18 06:08 Stop Req Departure - Departure Time of Disposition: 06:21 Disposition: Home, Self-Care 01 Condition: Good Clinical Impression: Dysphasia, Globus sensation - Discharge Information Referrals: Kristopher Zepeda MD [Primary Care Provider] - Additional Instructions: Return if symptoms persist or worsen or if new concerning symptoms develop Follow-up with general surgery or primary care for consideration of upper endoscopy [facility] - General Surgery Professional Building [address] [place] [address], [address] [place] [address] [facility] - Primary Care [address] [place] [address] The following information is given to patients seen in the emergency department who are being discharged to home. This information is to outline your options for follow-up care. We provide all patients seen in our emergency department with a follow-up referral. The need for follow-up, as well as the timing and circumstances, are variable depending upon the specifics of your emergency department visit. If you don't have a primary care physician on staff, we will provide you with a referral. We always advise you to contact your personal physician following an emergency department visit to inform them of the circumstance of the visit and for follow-up with them and/or the need for any referrals to a consulting specialist. The emergency department will also refer you to a specialist when appropriate. This referral assures that you have the opportunity for follow-up care with a specialist. All of these measure are taken in an effort to provide you with optimal care, which includes your follow-up. Under all circumstances we always encourage you to contact your private physician who remains a resource for coordinating your care. When calling for follow-up care, please make the office aware that this follow-up is from your recent emergency room visit. If for any reason you are refused follow-up, please contact the [facility] emergency department at and asked to speak to the emergency department charge nurse. - My Orders Last 24 Hours: My Active Orders 05/26/18 06:08 Neck Soft Tissue [CR] Stat - Assessment/Plan Last 24 Hours: My Active Orders 05/26/18 06:08 Neck Soft Tissue [CR] Stat
[2018-05-26 06:33] VITALS: BP 149/99
== END 2018-05-26 06:30 | disposition home or self-care (01) ==
LOC: MW.ED 06:02
DX: R47.02 Dysphasia (principal); F45.8 Other somatoform disorders; I10 Essential (primary) hypertension; E66.9 Obesity, unspecified; Z98.890 Other specified postprocedural states; Z88.1 Allergy status to other antibiotic agents
CPT/HCPCS: 99282; 99283-25

== ENCOUNTER 2018-10-08 20:13 | Emergency (ER) | payer MEDICARE ==
[2018-10-08] MEDS ORDERED: Sodium Chloride 0.9% 1,000 ML IV ONE (20:16)
[2018-10-08] MEDS ORDERED: Hydrocortisone 2.5% Crm 30 GM Tube TOP STA (20:34)
--- NOTE | 2018-10-08 20:44 | EDM.PDOC ---
ED HPI GENERAL MEDICAL PROBLEM - General Chief Complaint: Gastrointestinal Problem Stated Complaint: PT HAS STOMACH PAINS Time Seen by Provider: 10/08/18 20:15 Source of Information: Reports: Patient History Limitations: Reports: No Limitations - History of Present Illness INITIAL COMMENTS - FREE TEXT/NARRATIVE: HISTORY AND PHYSICAL: History of present illness: Patient is a 42-year-old female who presents to the emergency room with complaints of rectal pain. She states she has had this complaint for approximately one year and has been intermittently bothersome. She states she did have a colonoscopy initially when symptoms started and was told that she had a few skin tags but otherwise was encouraged to change her diet. Over the past one week she has had pain with sitting for long periods of time and has noticed tamara blood when wiping after having a bowel movement. She denies any rectal penetration or trauma of any sort. Patient denies any fever, chills, headache, change in vision, syncope or near syncope. Denies any chest pain, back pain, shortness of breath or cough. Denies any abdominal pain, nausea, vomiting, diarrhea, constipation or dysuria. Patient has been eating and drinking appropriately. Review of systems: As per history of present illness and below otherwise all systems reviewed and negative. Past medical history: As per history of present illness and as reviewed below otherwise noncontributory. Surgical history: As per history of present illness and as reviewed below otherwise noncontributory. Social history: See social history for further information Family history: As per history of present illness and as reviewed below otherwise noncontributory. Physical exam: General: Well-developed and well-nourished 42-year-old female. Alert and oriented. Nontoxic appearing and in no acute distress. HEENT: Atraumatic, normocephalic, pupils equal and reactive bilaterally, negative for conjunctival pallor or scleral icterus, mucous membranes moist, TMs normal bilaterally, throat clear, neck supple, nontender, trachea midline. No drooling or trismus noted. No meningeal signs. No hot potato voice noted. Lungs: Clear to auscultation, breath sounds equal bilaterally, chest nontender. Heart: S1S2, regular rate and rhythm without overt murmur Abdomen: Soft, nondistended, nontender. Negative for masses or hepatosplenomegaly. Negative for costovertebral tenderness. Pelvis: Stable nontender. Genitourinary: Deferred. Rectal: This was done with consent and a hunter guide at the bedside. No external hemorrhoids noted. Good rectal tone. Patient reports discomfort with digital insertion. Unable to appreciate any internal hemorrhoids due to patient's discomfort. Hemoccult positive. Skin: Intact, warm, dry. No lesions or rashes noted. Extremities: Atraumatic, moves all extremities per self without difficulty or deficits, negative for cords or calf pain. Neurovascular unremarkable. Neuro: Awake, alert, oriented. Cranial nerves II through XII unremarkable. Cerebellum unremarkable. Motor and sensory unremarkable throughout. Exam nonfocal. Notes: Lab work is unremarkable. Patient reports that this is an acute on chronic problem. We discussed doing a CT, at this time I feel it is not warranted. Encouraged her to follow up with the general surgeon as she probably needs a colonoscopy and further diagnostics for her likely internal hemorrhoids. Medication and supportive care measures were reviewed and discussed. Voices understanding and is agreeable to plan of care. Denies any further questions or concerns at this time. Diagnostics: CBC, CMP, INR Therapeutics: Anusol Prescription: Anusol Suppository Impression: Rectal pain Plan: 1. Lab work. As we discussed please increase her fluids and add Colace to her regimen to make sure you're stools are soft. 2. Follow-up with the general surgeon. Call tomorrow to set up a follow-up appointment. 3. Use the prescribed medications as directed for comfort. 4. Return to the ED as needed and as discussed. Definitive disposition and diagnosis as appropriate pending reevaluation and review of above. rectal Pain Score (Numeric/FACES): 5 - Related Data Allergies Allergy/AdvReac Type Severity Reaction Status Date / Time ciprofloxacin [From Cipro] Allergy Hallucinati Verified 05/26/18 06:12 ons Home Meds: Home Meds ARIPiprazole [Abilify] 10 mg PO DAILY 10/09/14 [History] Lisinopril 20 mg PO DAILY 05/31/16 [History] atoMOXetine HCl [Strattera] 100 mg PO DAILY 05/31/16 [History] lamoTRIgine [Lamictal] 100 mg PO DAILY 05/31/16 [History] Albuterol [Proair HFA] 1 - 2 puff INH Q4H PRN 05/14/17 [History] Norethindrone [Paulina] 0.35 mg PO DAILY 05/14/17 [History] atoMOXetine [Strattera] 40 mg PO DAILY 05/14/17 [History] LORazepam [Ativan] 0.5 mg PO QPM PRN #5 tablet 06/01/17 [Rx] Past Medical History - Past Health History Medical/Surgical History: Denies Medical/Surgical History HEENT History: Reports: Sinusitis Other HEENT History: wears glasses/contacts Cardiovascular History: Reports: Hypertension Respiratory History: Reports: Asthma Other Respiratory History: uses inhaler weekly Gastrointestinal History: Reports: Chronic Constipation, Colon Polyp, GERD, PUD Genitourinary History: Reports: None [employer] History: Reports: 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, Musculoskeletal History: Reports: Other (See Below) Other Musculoskeletal History: states "I think I have fibromalgia" not diagnosed Psychiatric History: Reports: Bipolar Endocrine/Metabolic History: Reports: Obesity/BMI 30+ Dermatologic History: Reports: Other (See Below) Other Dermatologic History: dermatagraphism - Infectious Disease History Infectious Disease History: Reports: Chicken Pox - Past Surgical History HEENT Surgical History: Reports: Tonsillectomy GI Surgical History: Reports: Colonoscopy, Other (See Below) Other GI Surgeries/Procedures: benign tumor removed from abdomen Female Surgical History: Reports: Endometrial Ablation, LEEP, Other (See Below) Other Female Surgeries/Procedures: laparoscopy for removal of endometriosis Social & Family History - Family History Family Medical History: Noncontributory - Tobacco Use Smoking Status *Q: Current Every Day Smoker Years of Tobacco use: 20 Packs/Tins Daily: 0.5 - Caffeine Use Caffeine Use: Reports: Coffee, Energy Drinks, Soda, Tea - Recreational Drug Use Recreational Drug Use: Yes Recreational Drug Type: Reports: Marijuana/Hashish Recreational Drug Use Frequency: Daily - Living Situation & Occupation Living situation: Reports: Single Occupation: Employed ED ROS GENERAL - Review of Systems Review Of Systems: ROS reveals no pertinent complaints other than HPI. ED EXAM, GI/ABD - Physical Exam Exam: See Below (See dictation) Course - Vital Signs Last Recorded V/S: Last Vital Signs Temp 97.6 F 10/08/18 20:24 Pulse 105 H 10/08/18 21:40 Resp 17 10/08/18 21:40 BP 129/69 10/08/18 21:40 Pulse Ox 95 10/08/18 21:40 - Orders/Labs/Meds Labs: Laboratory Tests 10/08/18 10/08/18 10/08/18 Range/Units 20:45 20:45 20:45 WBC 12.49 H (4.0-11.0) K/uL RBC 4.77 (4.30-5.90) M/uL Hgb 14.9 (12.0-16.0) g/dL Hct 44.0 (36.0-46.0) % MCV 92.2 (80.0-98.0) fL MCH 31.2 (27.0-32.0) pg MCHC 33.9 (31.0-37.0) g/dL RDW Std Deviation 47.6 (28.0-62.0) fl RDW Coeff of Kalpesh 14 (11.0-15.0) % Plt Count 419 H (150-400) K/uL MPV 9.30 (7.40-12.00) fL Neut % (Auto) 62.8 (48.0-80.0) % Lymph % (Auto) 28.4 (16.0-40.0) % Lyon % (Auto) 6.7 (0.0-15.0) % Eos % (Auto) 1.7 (0.0-7.0) % Baso % (Auto) 0.4 (0.0-1.5) % Neut # (Auto) 7.8 H (1.4-5.7) K/uL Lymph # (Auto) 3.6 H (0.6-2.4) K/uL Lyon # (Auto) 0.8 (0.0-0.8) K/uL Eos # (Auto) 0.2 (0.0-0.7) K/uL Baso # (Auto) 0.1 (0.0-0.1) K/uL Nucleated RBC % 0.0 /100WBC Nucleated RBCs # 0 K/uL INR 0.96 Sodium 137 (136-145) mmol/L Potassium 3.5 (3.5-5.1) mmol/L Chloride 102 (98-107) mmol/L Carbon Dioxide 23.6 (21.0-32.0) mmol/L BUN 22 H (7.0-18.0) mg/dL Creatinine 1.5 H (0.6-1.0) mg/dL Est Cr Clr Drug Dosing 48.78 mL/min Estimated GFR (MDRD) 37.9 ml/min Glucose 102 (74-106) mg/dL Calcium 9.3 (8.5-10.1) mg/dL Total Bilirubin 0.4 (0.2-1.0) mg/dL AST 26 (15-37) IU/L ALT 37 (14-63) IU/L Alkaline Phosphatase 98 (46-116) U/L Total Protein 7.7 (6.4-8.2) g/dL Albumin 4.2 (3.4-5.0) g/dL Globulin 3.5 (2.6-4.0) g/dL Albumin/Globulin Ratio 1.2 (0.9-1.6) Meds: Medications Discontinued Medications Generic Name Dose Route Start Last Admin Trade Name Freq PRN Reason Stop Dose Admin Diclofenac Sodium 75 mg 10/08/18 21:32 10/08/18 21:34 Voltaren PO 10/08/18 21:33 Not Given ONETIME ONE Hydrocortisone 1 gm 10/08/18 20:34 10/08/18 21:03 Proctozone-Hc 2.5% Crm TOP 10/08/18 20:35 1 gm NOW STA Administration Sodium Chloride 1,000 mls @ 999 mls/hr 10/08/18 20:16 10/08/18 20:34 Normal Saline IV 10/08/18 21:16 Not Given STAT ONE Departure - Departure Time of Disposition: 21:28 Disposition: Home, Self-Care 01 Clinical Impression: Rectal pain - Discharge Information Instructions: Hydrocortisone rectal cream, Rectal Bleeding, [id number] Referrals: Kristopher Zepeda MD [Primary Care Provider] - Forms: ED Department Discharge Additional Instructions: The following information is given to patients seen in the emergency department who are being discharged to home. This information is to outline your options for follow-up care. We provide all patients seen in our emergency department with a follow-up referral. The need for follow-up, as well as the timing and circumstances, are variable depending upon the specifics of your emergency department visit. If you don't have a primary care physician on staff, we will provide you with a referral. We always advise you to contact your personal physician following an emergency department visit to inform them of the circumstance of the visit and for follow-up with them and/or the need for any referrals to a consulting specialist. The emergency department will also refer you to a specialist when appropriate. This referral assures that you have the opportunity for follow-up care with a specialist. All of these measure are taken in an effort to provide you with optimal care, which includes your follow-up. Under all circumstances we always encourage you to contact your private physician who remains a resource for coordinating your care. When calling for follow-up care, please make the office aware that this follow-up is from your recent emergency room visit. If for any reason you are refused follow-up, please contact the [facility] Emergency Department at and asked to speak to the emergency department charge nurse. [facility] [address] [place] [address] [place] [address] [facility] - General Surgery Professional Building [address] [place] [address], [address] [place] [address] 1. Lab work. As we discussed please increase her fluids and add Colace to her regimen to make sure you're stools are soft. 2. Follow-up with the general surgeon (Dr Iverson). Call tomorrow to set up a follow-up appointment. 3. Use the prescribed medications as directed for comfort. 4. Return to the ED as needed and as discussed.
[2018-10-08] MEDS ORDERED: Diclofenac Sodium 75 MG Tab.EC PO ONE (21:32)
[2018-10-08 21:41] VITALS: BP 129/69
== END 2018-10-08 21:47 | disposition home or self-care (01) ==
LOC: MW.ED 20:13
DX: K62.89 Other specified diseases of anus and rectum (principal); I10 Essential (primary) hypertension; J45.909 Unspecified asthma, uncomplicated; Z79.899 Other long term (current) drug therapy; Z88.1 Allergy status to other antibiotic agents
CPT/HCPCS: 36415; 80053; 85025; 85610; 99283; A9270

== ENCOUNTER 2018-10-13 05:41 | Emergency (ER) | payer MEDICARE ==
--- NOTE | 2018-10-13 05:47 | EDM.PDOC ---
ED HPI GENERAL MEDICAL PROBLEM - General Chief Complaint: General Stated Complaint: FEELS LIKE SOMETHING IS IN HER HEAD Time Seen by Provider: 10/13/18 05:47 Source of Information: Reports: Patient - History of Present Illness INITIAL COMMENTS - FREE TEXT/NARRATIVE: HISTORY AND PHYSICAL: History of present illness: [Patient presents after taking a friend's Suboxone, unknown dose, sublingual strep was taken in an night patient went to sleep she thinks she may have vomited in her sleep and arrives as such stating she "feels funny" She is in no apparent distress nontoxic appearing no fever nausea vomiting chills sweats no chest pain shortness breath headache dizziness palpitation no bowel or urine symptoms ] Review of systems: As per history of present illness and below otherwise all systems reviewed and negative. Past medical history: As per history of present illness and as reviewed below otherwise noncontributory. Surgical history: As per history of present illness and as reviewed below otherwise noncontributory. Social history: No reported history of drug or alcohol abuse. Family history: As per history of present illness and as reviewed below otherwise noncontributory. Physical exam: HEENT: Atraumatic, normocephalic, pupils reactive, negative for conjunctival pallor or scleral icterus, mucous membranes moist, throat clear, neck supple, nontender, trachea midline. Lungs: Clear to auscultation, breath sounds equal bilaterally, chest nontender. Heart: S1S2, regular, negative for clicks, rubs, or JVD. Abdomen: Soft, nondistended, nontender. Negative for masses or hepatosplenomegaly. Negative for costovertebral tenderness. Pelvis: Stable nontender. Genitourinary: Deferred. Rectal: Deferred. Extremities: Atraumatic, negative for cords or calf pain. Neurovascular unremarkable. Neuro: Awake, alert, oriented. Cranial nerves II through XII unremarkable. Cerebellum unremarkable. Motor and sensory unremarkable throughout. Exam nonfocal. Diagnostics: [UA hCG drug screen ]Chest 1 view Therapeutics: [Normal saline Zofran] Poison control contacted-no specific recommendations, no adverse outcome expected per poison control Patient refused lab fluids and Zofran Impression: Vomiting substance abuse] History of hemorrhoids-seen several days ago Preparation H is helping her will provide lidocaine gel as well Definitive disposition and diagnosis as appropriate pending reevaluation and review of above. - Related Data Allergies Allergy/AdvReac Type Severity Reaction Status Date / Time ciprofloxacin [From Cipro] Allergy Hallucinati Verified 10/13/18 05:45 ons Home Meds: Home Meds ARIPiprazole [Abilify] 10 mg PO DAILY 10/09/14 [History] Lisinopril 20 mg PO DAILY 05/31/16 [History] atoMOXetine HCl [Strattera] 100 mg PO DAILY 05/31/16 [History] lamoTRIgine [Lamictal] 100 mg PO DAILY 05/31/16 [History] Albuterol [Proair HFA] 1 - 2 puff INH Q4H PRN 05/14/17 [History] Norethindrone [Paulina] 0.35 mg PO DAILY 05/14/17 [History] atoMOXetine [Strattera] 40 mg PO DAILY 05/14/17 [History] LORazepam [Ativan] 0.5 mg PO QPM PRN #5 tablet 06/01/17 [Rx] Past Medical History - Past Health History Medical/Surgical History: Denies Medical/Surgical History HEENT History: Reports: Sinusitis Other HEENT History: wears glasses/contacts Cardiovascular History: Reports: Hypertension Respiratory History: Reports: Asthma Other Respiratory History: uses inhaler weekly Gastrointestinal History: Reports: Chronic Constipation, Colon Polyp, GERD, PUD Genitourinary History: Reports: None [employer] History: Reports: 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, Musculoskeletal History: Reports: Other (See Below) Other Musculoskeletal History: states "I think I have fibromalgia" not diagnosed Psychiatric History: Reports: Bipolar Endocrine/Metabolic History: Reports: Obesity/BMI 30+ Dermatologic History: Reports: Other (See Below) Other Dermatologic History: dermatagraphism - Infectious Disease History Infectious Disease History: Reports: Chicken Pox - Past Surgical History HEENT Surgical History: Reports: Tonsillectomy GI Surgical History: Reports: Colonoscopy, Other (See Below) Other GI Surgeries/Procedures: benign tumor removed from abdomen Female Surgical History: Reports: Endometrial Ablation, LEEP, Other (See Below) Other Female Surgeries/Procedures: laparoscopy for removal of endometriosis Social & Family History - Family History Family Medical History: Noncontributory - Caffeine Use Caffeine Use: Reports: Coffee, Energy Drinks, Soda, Tea - Living Situation & Occupation Living situation: Reports: Single Occupation: Employed ED ROS GENERAL - Review of Systems Review Of Systems: See Below ED EXAM, GENERAL - Physical Exam Exam: See Below Course - Vital Signs Last Recorded V/S: Last Vital Signs Temp 97.3 F 10/13/18 05:47 Pulse 112 H 10/13/18 05:47 Resp 20 10/13/18 05:47 BP 129/81 10/13/18 05:47 Pulse Ox 98 10/13/18 05:47 - Orders/Labs/Meds Orders: Active Orders 24 hr Category Date Time Status Chest 1V Frontal [CR] Stat Exams 10/13/18 06:07 Taken CBC WITH AUTO DIFF [HEME] Stat Lab 10/13/18 06:14 Stop Req COMPREHENSIVE METABOLIC PN,CMP [CHEM] Stat Lab 10/13/18 06:14 Stop Req ETOH [ETHANOL BLOOD MEDICAL] [CHEM] Stat Lab 10/13/18 06:14 Stop Req Sodium Chloride 0.9% [Normal Saline] 1,000 ml Med 10/13/18 06:14 Active IV STAT Medication Orders Sodium Chloride (Normal Saline) 1,000 mls @ 999 mls/hr IV STAT ONE Stop: 10/13/18 07:14 Last Admin: 10/13/18 06:24 Dose: Not Given Labs: Laboratory Tests 10/13/18 10/13/18 10/13/18 Range/Units 05:46 05:46 05:46 Urine Color YELLOW Urine Appearance CLEAR Urine pH 5.5 (5.0-8.0) Ur Specific [place] >= 1.030 (1.001-1.035) Urine Protein NEGATIVE (NEGATIVE) mg/dL Urine Glucose (UA) NEGATIVE (NEGATIVE) mg/dL Urine Ketones NEGATIVE (NEGATIVE) mg/dL Urine Occult Blood NEGATIVE (NEGATIVE) Urine Nitrite NEGATIVE (NEGATIVE) Urine Bilirubin SMALL H (NEGATIVE) Urine Ictotest NEGATIVE Urine Urobilinogen 0.2 (<2.0) EU/dL Ur Leukocyte Esterase NEGATIVE (NEGATIVE) Urine HCG, Qual NEGATIVE (NEGATIVE) Urine Opiates Screen NEGATIVE (NEGATIVE) Ur Oxycodone Screen NEGATIVE (NEGATIVE) Urine Methadone Screen NEGATIVE (NEGATIVE) Ur Barbiturates Screen NEGATIVE (NEGATIVE) Ur Phencyclidine Scrn NEGATIVE (NEGATIVE) Ur Amphetamine Screen POSITIVE (NEGATIVE) U Methamphetamines Scrn NEGATIVE (NEGATIVE) U Benzodiazepines Scrn NEGATIVE (NEGATIVE) U Cocaine Metab Screen NEGATIVE (NEGATIVE) U Marijuana (THC) Screen NEGATIVE (NEGATIVE) Meds: Medications Generic Name Dose Route Start Last Admin Trade Name Freq PRN Reason Stop Dose Admin Sodium Chloride 1,000 mls @ 999 mls/hr 10/13/18 06:14 10/13/18 06:24 Normal Saline IV 10/13/18 07:14 Not Given STAT ONE Discontinued Medications Generic Name Dose Route Start Last Admin Trade Name Freq PRN Reason Stop Dose Admin Ondansetron HCl 8 mg 10/13/18 06:14 10/13/18 06:24 Zofran IVPUSH 10/13/18 06:15 Not Given ONETIME ONE Departure - Departure Time of Disposition: 06:30 Disposition: Home, Self-Care 01 Condition: Good Clinical Impression: Vomiting, Substance abuse - Discharge Information Forms: ED Department Discharge Additional Instructions: The following information is given to patients seen in the emergency department who are being discharged to home. This information is to outline your options for follow-up care. We provide all patients seen in our emergency department with a follow-up referral. The need for follow-up, as well as the timing and circumstances, are variable depending upon the specifics of your emergency department visit. If you don't have a primary care physician on staff, we will provide you with a referral. We always advise you to contact your personal physician following an emergency department visit to inform them of the circumstance of the visit and for follow-up with them and/or the need for any referrals to a consulting specialist. The emergency department will also refer you to a specialist when appropriate. This referral assures that you have the opportunity for follow-up care with a specialist. All of these measure are taken in an effort to provide you with optimal care, which includes your follow-up. Under all circumstances we always encourage you to contact your private physician who remains a resource for coordinating your care. When calling for follow-up care, please make the office aware that this follow-up is from your recent emergency room visit. If for any reason you are refused follow-up, please contact the [facility] emergency department at and asked to speak to the emergency department charge nurse. - My Orders Last 24 Hours: My Active Orders 10/13/18 06:07 Chest 1V Frontal [CR] Stat 10/13/18 06:14 CBC WITH AUTO DIFF [HEME] Stat COMPREHENSIVE METABOLIC PN,CMP [CHEM] Stat ETOH [ETHANOL BLOOD MEDICAL] [CHEM] Stat Sodium Chloride 0.9% [Normal Saline] 1,000 ml IV STAT - Assessment/Plan Last 24 Hours: My Active Orders 10/13/18 06:07 Chest 1V Frontal [CR] Stat 10/13/18 06:14 CBC WITH AUTO DIFF [HEME] Stat COMPREHENSIVE METABOLIC PN,CMP [CHEM] Stat ETOH [ETHANOL BLOOD MEDICAL] [CHEM] Stat Sodium Chloride 0.9% [Normal Saline] 1,000 ml IV STAT
[2018-10-13] MEDS ORDERED: Ondansetron 4 MG/2 ML SDV IVPUSH ONE (06:14)
[2018-10-13] MEDS ORDERED: Sodium Chloride 0.9% 1,000 ML IV ONE (06:14)
[2018-10-13 06:50] VITALS: BP 124/81
--- NOTE | 2018-10-13 06:53 | CR ---
INDICATION: Shortness of breath TECHNIQUE: Chest 1 views COMPARISON: 06/14/2017 FINDINGS: Cardiovascular and mediastinum: Heart size and vasculature are normal in caliber and appearance. Lungs and pleural spaces: Lungs are clear. No sign of infiltrate or mass. No sign of pleural effusion. No pneumothorax. Bones and soft tissues: No significant findings. IMPRESSION: No acute findings and no significant changes from the prior exam. Dictated by Nahid Kaminski MD @ Oct 13 2018 6:50AM Signed by Dr. Nahid Kaminski @ Oct 13 2018 6:52AM
== END 2018-10-13 06:50 | disposition home or self-care (01) ==
LOC: MW.ED 05:41
DX: F11.10 Opioid abuse, uncomplicated (principal); R11.10 Vomiting, unspecified; I10 Essential (primary) hypertension; J45.909 Unspecified asthma, uncomplicated; E66.9 Obesity, unspecified; Z68.30 Body mass index [BMI] 30.0-30.9, adult; F31.9 Bipolar disorder, unspecified; Z90.89 Acquired absence of other organs; Z79.899 Other long term (current) drug therapy
CPT/HCPCS: 71045; 71045-26; 80305-QW; 81003; 81025; 99283; 99284-25

== ENCOUNTER 2018-10-21 11:28 | Emergency (ER) | payer MEDICARE ==
[2018-10-21] MEDS ORDERED: Sodium Chloride 0.9% 10 ML Syringe FLUSH PRN (11:29)
[2018-10-21] MEDS ORDERED: Sodium Chloride 0.9% 2.5 ML Syringe FLUSH PRN (11:29)
[2018-10-21 11:34] VITALS: BP 127/89; PULSE 114
--- NOTE | 2018-10-21 11:36 | EDM.PDOC ---
ED HPI GENERAL MEDICAL PROBLEM - General Chief Complaint: Chest Pain Stated Complaint: CHEST PRESSURE Time Seen by Provider: 10/21/18 11:29 Source of Information: Reports: Patient History Limitations: Reports: No Limitations - History of Present Illness INITIAL COMMENTS - FREE TEXT/NARRATIVE: HISTORY AND PHYSICAL: History of present illness: Patient is a 42-year-old female who presents to the emergency room with complaints of chest pain and nausea. She states over the past 3 days she has had intermittent nausea. Approximately one hour prior to arrival she started to develop chest pain that radiates into her left arm. Patient denies any fever, chills, headache, change in vision, syncope or near syncope. Denies any back pain, shortness of breath or cough. Denies any abdominal pain, diarrhea, constipation or dysuria. Has not noted any blood in urine or stool. Patient has been eating and drinking appropriately. Patient had previously been seen on 10/08/18 for rectal pain. She was given a prescription for Anusol suppositories. She states she did not take this medication and instead took "something from the streets" and had used a friend' s Suboxone. She was seen again in the emergency room on 10/13/18 that she states the Suboxone had made her feel unwell. Lab work at that time was unremarkable and she was discharged to home. Reports that she has not taken anything prescribed or illicit drugs since that time. Review of systems: As per history of present illness and below otherwise all systems reviewed and negative. Past medical history: As per history of present illness and as reviewed below otherwise noncontributory. Surgical history: As per history of present illness and as reviewed below otherwise noncontributory. Social history: See social history for further information Family history: As per history of present illness and as reviewed below otherwise noncontributory. Physical exam: General: Well-developed and well nourished 42-year-old female. Alert and oriented. Nontoxic appearing and in no acute distress. HEENT: Atraumatic, normocephalic, pupils equal and reactive bilaterally, negative for conjunctival pallor or scleral icterus, mucous membranes moist, TMs normal bilaterally, throat clear, neck supple, nontender, trachea midline. No drooling or trismus noted. No meningeal signs. No hot potato voice noted. Lungs: Clear to auscultation, breath sounds equal bilaterally, chest nontender. Heart: S1S2, regular rate and rhythm without overt murmur Abdomen: Soft, nondistended, nontender. Negative for masses or hepatosplenomegaly. Negative for costovertebral tenderness. Pelvis: Stable nontender. Genitourinary: Deferred. Rectal: Deferred. Skin: Intact, warm, dry. No lesions or rashes noted. Extremities: Atraumatic, moves all extremities per self without difficulty or deficits, negative for cords or calf pain. Neurovascular unremarkable. Neuro: Awake, alert, oriented. Cranial nerves II through XII unremarkable. Cerebellum unremarkable. Motor and sensory unremarkable throughout. Exam nonfocal. Notes: Patient states that she has a meeting she needs to get to. She is aware that lab work has not returned yet. Her vital signs remained stable. She will sign out AGAINST MEDICAL ADVICE. Diagnostics: CBC, CMP, Troponin, EKG, UA, Drug Screen Therapeutics: IV fluids, ASA, Toradol Prescription: None Impression: Chest pain, unspecified Against Medical Advice Plan: Patient left against medical advice Definitive disposition and diagnosis as appropriate pending reevaluation and review of above. Left Chest Pain Score (Numeric/FACES): 6 - Related Data Allergies Allergy/AdvReac Type Severity Reaction Status Date / Time ciprofloxacin [From Cipro] Allergy Hallucinati Verified 10/21/18 11:34 ons Home Meds: Home Meds ARIPiprazole [Abilify] 10 mg PO DAILY 10/09/14 [History] Lisinopril 20 mg PO DAILY 05/31/16 [History] atoMOXetine HCl [Strattera] 100 mg PO DAILY 05/31/16 [History] lamoTRIgine [Lamictal] 100 mg PO DAILY 05/31/16 [History] Albuterol [Proair HFA] 1 - 2 puff INH Q4H PRN 05/14/17 [History] Norethindrone [Paulina] 0.35 mg PO DAILY 05/14/17 [History] atoMOXetine [Strattera] 40 mg PO DAILY 05/14/17 [History] LORazepam [Ativan] 0.5 mg PO QPM PRN #5 tablet 06/01/17 [Rx] Past Medical History - Past Health History Medical/Surgical History: Denies Medical/Surgical History HEENT History: Reports: Sinusitis Other HEENT History: wears glasses/contacts Cardiovascular History: Reports: Hypertension Respiratory History: Reports: Asthma Other Respiratory History: uses inhaler weekly Gastrointestinal History: Reports: Chronic Constipation, Colon Polyp, GERD, PUD Genitourinary History: Reports: None 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 OF ROOMS History: Reports: 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, Musculoskeletal History: Reports: Other (See Below) Other Musculoskeletal History: states "I think I have fibromalgia" not diagnosed Psychiatric History: Reports: Bipolar Endocrine/Metabolic History: Reports: Obesity/BMI 30+ Dermatologic History: Reports: Other (See Below) Other Dermatologic History: dermatagraphism - Infectious Disease History Infectious Disease History: Reports: Chicken Pox - Past Surgical History HEENT Surgical History: Reports: Tonsillectomy GI Surgical History: Reports: Colonoscopy, Other (See Below) Other GI Surgeries/Procedures: benign tumor removed from abdomen Female Surgical History: Reports: Endometrial Ablation, LEEP, Other (See Below) Other Female Surgeries/Procedures: laparoscopy for removal of endometriosis Social & Family History - Family History Family Medical History: Noncontributory - Caffeine Use Caffeine Use: Reports: Coffee, Energy Drinks, Soda, Tea - Living Situation & Occupation Living situation: Reports: Single Occupation: Employed ED ROS GENERAL - Review of Systems Review Of Systems: ROS reveals no pertinent complaints other than HPI. ED EXAM, GENERAL - Physical Exam Exam: See Below (See dictation) Course - Vital Signs Last Recorded V/S: Last Vital Signs Temp 97.4 F 10/21/18 11:31 Pulse 114 H 10/21/18 11:31 Resp 18 10/21/18 11:31 BP 127/89 10/21/18 11:31 Pulse Ox 98 10/21/18 11:31 - Orders/Labs/Meds Orders: Active Orders 24 hr Category Date Time Status EKG Documentation Completion [RC] STAT Care 10/21/18 11:29 Active Chest 1V Frontal [CR] Stat Exams 10/21/18 11:29 Taken COMPREHENSIVE METABOLIC PN,CMP [CHEM] Stat Lab 10/21/18 11:38 Received DRUG SCREEN, URINE [URCHEM] Stat Lab 10/21/18 11:37 Ordered TROPONIN I [CHEM] Stat Lab 10/21/18 11:38 Received UA RFX SANTOSH AND CULT IF INDIC [URIN] Stat Lab 10/21/18 11:37 Ordered Sodium Chloride 0.9% [Saline Flush] Med 10/21/18 11:29 Active 10 ml FLUSH ASDIRECTED PRN Sodium Chloride 0.9% [Saline Flush] Med 10/21/18 11:29 Active 2.5 ml FLUSH ASDIRECTED PRN Saline Lock Insert [OM.PC] Stat Oth 10/21/18 11:29 Ordered Medication Orders Sodium Chloride (Saline Flush) 10 ml FLUSH ASDIRECTED PRN PRN Reason: Keep Vein Open Last Admin: 10/21/18 11:58 Dose: 10 ml Sodium Chloride (Saline Flush) 2.5 ml FLUSH ASDIRECTED PRN PRN Reason: Keep Vein Open Last Admin: 10/21/18 11:57 Dose: 2.5 ml Labs: Laboratory Tests 10/21/18 Range/Units 11:38 WBC 10.81 (4.0-11.0) K/uL RBC 4.84 (4.30-5.90) M/uL Hgb 15.1 (12.0-16.0) g/dL Hct 44.5 (36.0-46.0) % MCV 91.9 (80.0-98.0) fL MCH 31.2 (27.0-32.0) pg MCHC 33.9 (31.0-37.0) g/dL RDW Std Deviation 46.2 (28.0-62.0) fl RDW Coeff of Kalpesh 14 (11.0-15.0) % Plt Count 462 H (150-400) K/uL MPV 9.00 (7.40-12.00) fL Neut % (Auto) 55.9 (48.0-80.0) % Lymph % (Auto) 31.7 (16.0-40.0) % Ashe % (Auto) 9.3 (0.0-15.0) % Eos % (Auto) 2.6 (0.0-7.0) % Baso % (Auto) 0.5 (0.0-1.5) % Neut # (Auto) 6.0 H (1.4-5.7) K/uL Lymph # (Auto) 3.4 H (0.6-2.4) K/uL Ashe # (Auto) 1.0 H (0.0-0.8) K/uL Eos # (Auto) 0.3 (0.0-0.7) K/uL Baso # (Auto) 0.1 (0.0-0.1) K/uL Nucleated RBC % 0.0 /100WBC Nucleated RBCs # 0 K/uL Meds: Medications Generic Name Dose Route Start Last Admin Trade Name Freq PRN Reason Stop Dose Admin Sodium Chloride 10 ml 10/21/18 11:29 10/21/18 11:58 Saline Flush FLUSH 10 ml ASDIRECTED PRN Administration Keep Vein Open Sodium Chloride 2.5 ml 10/21/18 11:29 10/21/18 11:57 Saline Flush FLUSH 2.5 ml ASDIRECTED PRN Administration Keep Vein Open Discontinued Medications Generic Name Dose Route Start Last Admin Trade Name Freq PRN Reason Stop Dose Admin Aspirin 324 mg 10/21/18 11:37 10/21/18 11:56 Aspirin PO 10/21/18 11:38 324 mg ONETIME ONE Administration Sodium Chloride 1,000 mls @ 999 mls/hr 10/21/18 11:37 10/21/18 11:50 Normal Saline IV 10/21/18 12:37 999 mls/hr STAT ONE Administration Ketorolac Tromethamine 30 mg 10/21/18 11:37 10/21/18 11:50 Toradol IVPUSH 10/21/18 11:38 30 mg ONETIME ONE Administration Ondansetron HCl 4 mg 10/21/18 11:54 Zofran IVPUSH 10/21/18 11:55 ONETIME ONE Departure - Departure Time of Disposition: 12:42 Disposition: Against Medical Advice 07 Clinical Impression: Left against medical advice Chest pain Qualifiers: Chest pain type: unspecified Qualified Code(s): R07.9 - Chest pain, unspecified Forms: ED Department Discharge - My Orders Last 24 Hours: My Active Orders 10/21/18 11:29 EKG Documentation Completion [RC] STAT Chest 1V Frontal [CR] Stat Sodium Chloride 0.9% [Saline Flush] 10 ml FLUSH ASDIRECTED PRN Sodium Chloride 0.9% [Saline Flush] 2.5 ml FLUSH ASDIRECTED PRN Saline Lock Insert [OM.PC] Stat 10/21/18 11:37 DRUG SCREEN, URINE [URCHEM] Stat UA RFX SANTOSH AND CULT IF INDIC [URIN] Stat 10/21/18 11:38 COMPREHENSIVE METABOLIC PN,CMP [CHEM] Stat TROPONIN I [CHEM] Stat - Assessment/Plan Last 24 Hours: My Active Orders 10/21/18 11:29 EKG Documentation Completion [RC] STAT Chest 1V Frontal [CR] Stat Sodium Chloride 0.9% [Saline Flush] 10 ml FLUSH ASDIRECTED PRN Sodium Chloride 0.9% [Saline Flush] 2.5 ml FLUSH ASDIRECTED PRN Saline Lock Insert [OM.PC] Stat 10/21/18 11:37 DRUG SCREEN, URINE [URCHEM] Stat UA RFX SANTOSH AND CULT IF INDIC [URIN] Stat 10/21/18 11:38 COMPREHENSIVE METABOLIC PN,CMP [CHEM] Stat TROPONIN I [CHEM] Stat
[2018-10-21] MEDS ORDERED: Sodium Chloride 0.9% 1,000 ML IV ONE (11:37)
[2018-10-21] MEDS ORDERED: Ketorolac 30 MG/ML SDV IVPUSH ONE (11:37)
[2018-10-21] MEDS ORDERED: Aspirin 81 MG Tab.Chew PO ONE (11:37)
[2018-10-21] MEDS ORDERED: Ondansetron 4 MG/2 ML SDV IVPUSH ONE (11:54)
[2018-10-21 12:27] LABS: BLOOD UREA NITROGEN,BUN 15 mg/dL (7.0-18.0); CARBON DIOXIDE,CO2 26.5 mmol/L (21.0-32.0); CHLORIDE,CL 102 mmol/L (98-107); GLUCOSE RANDOM 92 mg/dL (74-106); POTASSIUM,K 3.5 mmol/L (3.5-5.1); SODIUM,NA 137 mmol/L (136-145)
--- NOTE | 2018-10-21 12:45 | CR ---
INDICATION: Chest pain. TECHNIQUE: Chest 1 view COMPARISON: Chest radiograph 10/13/2018. FINDINGS: Improved lung expansion since prior exam. Otherwise no significant change. No focal consolidation, pleural effusion, or pneumothorax. Normal heart size and pulmonary vascularity. IMPRESSION: No acute cardiopulmonary findings. Dictated by Alice Sims MD @ Oct 21 2018 12:40PM Signed by Dr. Alice Sims @ Oct 21 2018 12:43PM
== END 2018-10-21 12:44 | disposition left against medical advice (07) ==
LOC: MW.ED 11:28
DX: R07.9 Chest pain, unspecified (principal); I10 Essential (primary) hypertension; E66.9 Obesity, unspecified; F31.9 Bipolar disorder, unspecified; Z98.890 Other specified postprocedural states; Z79.899 Other long term (current) drug therapy; K60.2 Anal fissure, unspecified
CPT/HCPCS: 36415; 71045; 80053; 84484; 85025; 93005; 96361; 96374; 99213; 99285; A9270; J1885; J7040; 99282

== ENCOUNTER 2019-02-15 13:32 | Emergency (ER) | payer MEDICARE | END 2019-02-15 13:53 | disposition left against medical advice (07) | LOC: MW.ED 13:32 | DX: Z53.21 Procedure and treatment not carried out due to patient leaving prior to being seen by health care provider (principal) ==

== ENCOUNTER 2019-02-21 00:49 | Emergency (ER) | payer MEDICARE ==
--- NOTE | 2019-02-21 01:08 | EDM.PDOC ---
ED HPI GENERAL MEDICAL PROBLEM - General Chief Complaint: Gastrointestinal Problem Stated Complaint: PAIN Time Seen by Provider: 02/21/19 01:05 - History of Present Illness INITIAL COMMENTS - FREE TEXT/NARRATIVE: HISTORY AND PHYSICAL: History of present illness: Patient's a 43-year-old female history of rectal fissure was been seen by general surgery and colorectal surgery she's been treated with topical agents and comes tonight with rectal pain she's had some rectal bleeding associated with this similar to prior episodes she denies fever chills nausea vomiting or other complaints. Review of systems: As per history of present illness and below otherwise all systems reviewed and negative. Past medical history: As per history of present illness and as reviewed below otherwise noncontributory. Surgical history: As per history of present illness and as reviewed below otherwise noncontributory. Social history: No reported history of drug or alcohol abuse. Family history: As per history of present illness and as reviewed below otherwise noncontributory. Physical exam: HEENT: Atraumatic, normocephalic, pupils reactive, negative for conjunctival pallor or scleral icterus, mucous membranes moist, throat clear, neck supple, nontender, trachea midline. Lungs: Clear to auscultation, breath sounds equal bilaterally, chest nontender. Heart: S1S2, regular, negative for clicks, rubs, or JVD. Abdomen: Soft, nondistended, nontender. Negative for masses or hepatosplenomegaly. Negative for costovertebral tenderness. Pelvis: Stable nontender. Genitourinary: Deferred. Rectal: Refused by patient Extremities: Atraumatic, negative for cords or calf pain. Neurovascular unremarkable. Neuro: Awake, alert, oriented. Cranial nerves II through XII unremarkable. Cerebellum unremarkable. Motor and sensory unremarkable throughout. Exam nonfocal. Diagnostics: CBC Therapeutics: None Impression: #1 rectal pain history of anal fissure Definitive disposition and diagnosis as appropriate pending reevaluation and review of above. rectum Pain Score (Numeric/FACES): 5 - Related Data Allergies Allergy/AdvReac Type Severity Reaction Status Date / Time ciprofloxacin [From Cipro] Allergy Hallucinati Verified 02/21/19 01:03 ons Home Meds: Home Meds ARIPiprazole [Abilify] 10 mg PO DAILY 10/09/14 [History] Lisinopril 20 mg PO DAILY 05/31/16 [History] atoMOXetine HCl [Strattera] 100 mg PO DAILY 05/31/16 [History] lamoTRIgine [Lamictal] 100 mg PO DAILY 05/31/16 [History] Albuterol [Proair HFA] 1 - 2 puff INH Q4H PRN 05/14/17 [History] Norethindrone [Paulina] 0.35 mg PO DAILY 05/14/17 [History] atoMOXetine [Strattera] 40 mg PO DAILY 05/14/17 [History] LORazepam [Ativan] 0.5 mg PO QPM PRN #5 tablet 06/01/17 [Rx] Past Medical History - Past Health History Medical/Surgical History: Denies Medical/Surgical History HEENT History: Reports: Sinusitis Other HEENT History: wears glasses/contacts Cardiovascular History: Reports: Hypertension Respiratory History: Reports: Asthma Other Respiratory History: uses inhaler weekly Gastrointestinal History: Reports: Chronic Constipation, Colon Polyp, GERD, PUD Genitourinary History: Reports: None 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, Musculoskeletal History: Reports: Other (See Below) Other Musculoskeletal History: states "I think I have fibromalgia" not diagnosed Psychiatric History: Reports: Bipolar Endocrine/Metabolic History: Reports: Obesity/BMI 30+ Dermatologic History: Reports: Other (See Below) Other Dermatologic History: dermatagraphism - Infectious Disease History Infectious Disease History: Reports: Chicken Pox - Past Surgical History HEENT Surgical History: Reports: Tonsillectomy GI Surgical History: Reports: Colonoscopy, Other (See Below) Other GI Surgeries/Procedures: benign tumor removed from abdomen Female Surgical History: Reports: Endometrial Ablation, LEEP, Other (See Below) Other Female Surgeries/Procedures: laparoscopy for removal of endometriosis Social & Family History - Family History Family Medical History: Noncontributory - Caffeine Use Caffeine Use: Reports: Coffee, Energy Drinks, Soda, Tea - Living Situation & Occupation Living situation: Reports: Single Occupation: Employed ED ROS GENERAL - Review of Systems Review Of Systems: Comprehensive ROS is negative, except as noted in HPI. ED EXAM, GENERAL - Physical Exam Exam: See Below (dictation) Course - Vital Signs Last Recorded V/S: Last Vital Signs Temp 36.3 C 02/21/19 00:55 Pulse 116 H 02/21/19 00:55 Resp 18 02/21/19 00:55 BP 119/89 02/21/19 00:55 Pulse Ox 99 02/21/19 00:55 - Orders/Labs/Meds Orders: Active Orders 24 hr Category Date Time Status CBC WITH AUTO DIFF [HEME] Stat Lab 02/21/19 01:02 Ordered Departure - Departure Time of Disposition: 01:07 Disposition: Home, Self-Care 01 Condition: Good Clinical Impression: Rectal pain, History of anal fissures - Discharge Information Referrals: Kristopher Zepeda MD [Primary Care Provider] - Additional Instructions: The following information is given to patients seen in the emergency department who are being discharged to home. This information is to outline your options for follow-up care. We provide all patients seen in our emergency department with a follow-up referral. The need for follow-up, as well as the timing and circumstances, are variable depending upon the specifics of your emergency department visit. If you don't have a primary care physician on staff, we will provide you with a referral. We always advise you to contact your personal physician following an emergency department visit to inform them of the circumstance of the visit and for follow-up with them and/or the need for any referrals to a consulting specialist. The emergency department will also refer you to a specialist when appropriate. This referral assures that you have the opportunity for followup care with a specialist. All of these measure are taken in an effort to provide you with optimal care, which includes your followup. Under all circumstances we always encourage you to contact your private physician who remains a resource for coordinating your care. When calling for followup care, please make the office aware that this follow-up is from your recent emergency room visit. If for any reason you are refused follow-up, please contact the [facility] emergency department at and asked to speak to the emergency department charge nurse. [facility] - General Surgery Professional Building [address] [place] [address], [address] [place] [address] Anusol as prescribed sitz baths as directed follow-up Gen. surgery Dr. ward return as needed as discussed - My Orders Last 24 Hours: My Active Orders 02/21/19 01:02 CBC WITH AUTO DIFF [HEME] Stat - Assessment/Plan Last 24 Hours: My Active Orders 02/21/19 01:02 CBC WITH AUTO DIFF [HEME] Stat
[2019-02-21 01:50] VITALS: BP 138/103; PULSE 115
== END 2019-02-21 01:35 | disposition home or self-care (01) ==
LOC: MW.ED 00:49
DX: K62.89 Other specified diseases of anus and rectum (principal); I10 Essential (primary) hypertension; J45.909 Unspecified asthma, uncomplicated; F31.9 Bipolar disorder, unspecified; E66.9 Obesity, unspecified; Z68.37 Body mass index [BMI] 37.0-37.9, adult; K21.9 Gastro-esophageal reflux disease without esophagitis; Z88.1 Allergy status to other antibiotic agents; Z79.899 Other long term (current) drug therapy
CPT/HCPCS: 36415; 85025; 99283

== ENCOUNTER 2020-03-09 12:30 | Emergency (ER) | payer MEDICARE, MEDICAID ==
--- NOTE | 2020-03-09 13:06 | EDM.PDOC ---
ED HPI GENERAL MEDICAL PROBLEM - General Chief Complaint: Back Pain or Injury Stated Complaint: LOWER BACK PAIN Time Seen by Provider: 03/09/20 12:31 Source of Information: Reports: Patient History Limitations: Reports: No Limitations - History of Present Illness INITIAL COMMENTS - FREE TEXT/NARRATIVE: HISTORY AND PHYSICAL: History of present illness: Patient is a 44-year-old female who presents to the emergency room with complaints of right posterior chest wall pain, low left abdominal pain and nausea since yesterday. Patient reports that the pain started last evening with "extreme nausea and abdominal pain" to her left lower quadrant. She had mild right posterior chest wall pain, adjacent to the scapula. The pain in the posterior chest has increased, not exacerbated with palpation. She states her left lower abdominal pain is minimal and she no longer has any nausea. Patient denies any fever, chills, headache, change in vision, syncope or near syncope. Denies any chest pain, shortness of breath or cough. Denies any nausea, vomiting, diarrhea, constipation or dysuria. Has not noted any blood in urine or stool. Patient has been eating and drinking appropriately. Review of systems: As per history of present illness and below otherwise all systems reviewed and negative. Past medical history: As per history of present illness and as reviewed below otherwise noncontributory. Surgical history: As per history of present illness and as reviewed below otherwise noncontributory. Social history: See social history for further information Family history: As per history of present illness and as reviewed below otherwise noncontributory. Physical exam: General: Well developed and well nourished 44 year old female. Alert and orientated x 3. Nontoxic in appearance and in no acute distress. Vital signs are stable and have been reviewed by me. Nursing notes were reviewed. HEENT: Atraumatic, normocephalic, pupils equal and reactive bilaterally, neg ative for conjunctival pallor or scleral icterus, mucous membranes moist, TMs normal bilaterally, throat clear, neck supple, nontender, trachea midline. No drooling or trismus noted. No meningeal signs. No hot potato voice noted. Lungs: Clear to auscultation, breath sounds equal bilaterally, chest nontender. Normal work of breathing, no accessory muscles used. Heart: S1S2, regular rate and rhythm without overt murmur Abdomen: Soft, nondistended, nontender. Negative for masses or hepatosplenomegaly. Negative for costovertebral tenderness. Pelvis: Stable nontender. Genitourinary/Rectal: Deferred. C-spine/Back: No pinpoint vertebral tenderness upon palpation. No crepitus, step-offs or obvious deformities. Patient is ambulatory into the emergency room without difficulty or deficit. Able to rock back on heels and walk on toes. Denies any urinary or fecal incontinence. Denies any numbness, tingling or saddle paresthesia. No concerns of serious infection, fracture or cord compression, or cauda equina syndrome. Deep tendon reflexes brisk bilaterally. Skin: Intact, warm, dry. No lesions or rashes noted. Hematologic: No petechiae or purpra. Mucosa appropriate color and normal nail bed color and refill. Extremities: Atraumatic, moves all extremities per self without difficulty or deficits, negative for cords or calf pain. Neurovascular unremarkable. Neuro: Awake, alert, oriented. Cranial nerves II through XII unremarkable. Cerebellum unremarkable. Motor and sensory unremarkable throughout. Exam nonfocal. Psychiatric: Mood and affect are appropriate. Normal thought process. Answering questions appropriately. Notes: Negative Wells Criteria, 0.0 Score. Due to the location this could be muscular, kidney or lung related. I will do some basic lab work along with a chest x-ray at this time. Patient is agreeable to plan of care and would like something for pain at this time. I will give her some IV Toradol as she did drive herself. Patient does have a leukocytosis without known cause. I will get a CT of the abdomen and pelvis as she did have some left lower abdominal pain. She did get some relief with the IV Toradol. Vital signs remained stable. Patient is in no acute distress. Unremarkable CT of the abdomen pelvis. No findings to explain left lower quadrant abdomen or chest pain. With all the diagnostics that have been done and I am comfortable with this being treated as a muscular strain. I have talked with the patient about today's findings, in addition to providing specific details for plan of care. Reassessment at the time of disposition demonstrates that the patient is in no acute distress. The patient is stable for discharge, counseling was provided and we discussed in great detail signs and symptoms that would prompt them to return to the Emergency Department. Medication, follow up and supportive care measures were reviewed and discussed. Voices understanding and is agreeable to plan of care. Denies any further questions or concerns at this time. Diagnostics: CBC, CMP, lipase, UA, urine , chest x-ray, CT abdomen and pelvis Therapeutics: IV fluid, Toradol Prescription: Flexeril, diclofenac Impression: Acute back pain Plan: 1. Today your imagining and lab work showed no acute findings. Your symptoms could be muscular related. Please take the medications as directed and responsibly. Gentle heat to the area. 2. If your symptoms should worsen, new symptoms develop or any of the signs and symptoms we discussed should arise please return to the emergency room or call 911 (if needed). 3. We encourage you to follow up with your primary care provider and/or recommended specialist in the next few days for re-evaluation and further care/management. Definitive disposition and diagnosis as appropriate pending reevaluation and review of above. Right Back Pain Score (Numeric/FACES): 8 - Related Data Allergies Allergy/AdvReac Type Severity Reaction Status Date / Time ciprofloxacin [From Cipro] Allergy Hallucinati Verified 03/09/20 13:11 ons Home Meds: Home Meds ARIPiprazole [Abilify] 10 mg PO DAILY 10/09/14 [History] Lisinopril 20 mg PO DAILY 05/31/16 [History] atoMOXetine HCl [Strattera] 100 mg PO DAILY 05/31/16 [History] Albuterol [Proair HFA] 1 - 2 puff INH Q4H PRN 05/14/17 [History] atoMOXetine [Strattera] 40 mg PO DAILY 05/14/17 [History] LORazepam [Ativan] 0.5 mg PO QPM PRN #5 tablet 06/01/17 [Rx] Cyclobenzaprine [Flexeril] 10 mg PO TID PRN #21 tab 03/09/20 [Rx] Diclofenac Sodium [Voltaren] 75 mg PO BIDMEALS PRN #30 tab.cr 03/09/20 [Rx] Past Medical History - Past Health History Medical/Surgical History: Denies Medical/Surgical History HEENT History: Reports: Sinusitis Other HEENT History: wears glasses/contacts Cardiovascular History: Reports: Hypertension Respiratory History: Reports: Asthma Other Respiratory History: uses inhaler weekly Gastrointestinal History: Reports: Chronic Constipation, Colon Polyp, GERD, PUD Genitourinary History: Reports: None BALANCE TRUER History: Reports: 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, Musculoskeletal History: Reports: Other (See Below) Other Musculoskeletal History: states "I think I have fibromalgia" not diagnosed Psychiatric History: Reports: Bipolar Endocrine/Metabolic History: Reports: Obesity/BMI 30+ Dermatologic History: Reports: Other (See Below) Other Dermatologic History: dermatagraphism - Infectious Disease History Infectious Disease History: Reports: Chicken Pox - Past Surgical History HEENT Surgical History: Reports: Tonsillectomy GI Surgical History: Reports: Colonoscopy, Other (See Below) Other GI Surgeries/Procedures: benign tumor 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 ED EXAM,LOWER BACK PAIN/INJURY - Physical Exam Exam: See Below (See dictation) Course - Vital Signs Last Recorded V/S: Last Vital Signs Temp 97 F 03/09/20 13:26 Pulse 94 03/09/20 15:05 Resp 18 03/09/20 15:05 BP 98/61 03/09/20 15:05 Pulse Ox 96 03/09/20 15:05 - Orders/Labs/Meds Orders: Active Orders 24 hr Category Date Time Status Sodium Chloride 0.9% [Normal Saline] 1,000 ml Med 03/09/20 14:36 Active IV .Bolus Medication Orders Sodium Chloride (Normal Saline) 1,000 mls @ 250 mls/hr IV .Bolus ONE Stop: 03/09/20 18:35 Last Admin: 03/09/20 15:04 Dose: 250 mls/hr Documented by: SHANT Labs: Laboratory Tests 03/09/20 03/09/20 03/09/20 Range/Units 13:18 13:18 13:42 WBC 13.83 H (4.0-11.0) K/uL RBC 4.99 (4.30-5.90) M/uL Hgb 15.7 (12.0-16.0) g/dL Hct 46.5 H (36.0-46.0) % MCV 93.2 (80.0-98.0) fL MCH 31.5 (27.0-32.0) pg MCHC 33.8 (31.0-37.0) g/dL RDW Std Deviation 45.7 (28.0-62.0) fl RDW Coeff of Kalpesh 14 (11.0-15.0) % Plt Count 491 H (150-400) K/uL MPV 9.00 (7.40-12.00) fL Neut % (Auto) 49.7 (48.0-80.0) % Lymph % (Auto) 40.9 H (16.0-40.0) % Sequoyah % (Auto) 6.7 (0.0-15.0) % Eos % (Auto) 2.2 (0.0-7.0) % Baso % (Auto) 0.5 (0.0-1.5) % Neut # (Auto) 6.9 H (1.4-5.7) K/uL Lymph # (Auto) 5.7 H (0.6-2.4) K/uL Sequoyah # (Auto) 0.9 H (0.0-0.8) K/uL Eos # (Auto) 0.3 (0.0-0.7) K/uL Baso # (Auto) 0.1 (0.0-0.1) K/uL Nucleated RBC % 0.0 /100WBC Nucleated RBCs # 0 K/uL Sodium (136-145) mmol/L Potassium (3.5-5.1) mmol/L Chloride (98-107) mmol/L Carbon Dioxide (21.0-32.0) mmol/L BUN (7.0-18.0) mg/dL Creatinine (0.6-1.0) mg/dL Est Cr Clr Drug Dosing mL/min Estimated GFR (MDRD) ml/min Glucose (74-106) mg/dL Calcium (8.5-10.1) mg/dL Total Bilirubin (0.2-1.0) mg/dL AST (15-37) IU/L ALT (14-63) IU/L Alkaline Phosphatase (46-116) U/L Total Protein (6.4-8.2) g/dL Albumin (3.4-5.0) g/dL Globulin (2.6-4.0) g/dL Albumin/Globulin Ratio (0.9-1.6) Lipase (73-393) U/L Urine Color YELLOW Urine Appearance CLEAR Urine pH 6.0 (5.0-8.0) Ur Specific [place] 1.025 (1.001-1.035) Urine Protein NEGATIVE (NEGATIVE) mg/dL Urine Glucose (UA) NEGATIVE (NEGATIVE) mg/dL Urine Ketones NEGATIVE (NEGATIVE) mg/dL Urine Occult Blood NEGATIVE (NEGATIVE) Urine Nitrite NEGATIVE (NEGATIVE) Urine Bilirubin NEGATIVE (NEGATIVE) Urine Urobilinogen 0.2 (<2.0) EU/dL Ur Leukocyte Esterase NEGATIVE (NEGATIVE) Urine HCG, Qual NEGATIVE (NEGATIVE) 03/09/20 Range/Units 13:42 WBC (4.0-11.0) K/uL RBC (4.30-5.90) M/uL Hgb (12.0-16.0) g/dL Hct (36.0-46.0) % MCV (80.0-98.0) fL MCH (27.0-32.0) pg MCHC (31.0-37.0) g/dL RDW Std Deviation (28.0-62.0) fl RDW Coeff of Kalpesh (11.0-15.0) % Plt Count (150-400) K/uL MPV (7.40-12.00) fL Neut % (Auto) (48.0-80.0) % Lymph % (Auto) (16.0-40.0) % Sequoyah % (Auto) (0.0-15.0) % Eos % (Auto) (0.0-7.0) % Baso % (Auto) (0.0-1.5) % Neut # (Auto) (1.4-5.7) K/uL Lymph # (Auto) (0.6-2.4) K/uL Sequoyah # (Auto) (0.0-0.8) K/uL Eos # (Auto) (0.0-0.7) K/uL Baso # (Auto) (0.0-0.1) K/uL Nucleated RBC % /100WBC Nucleated RBCs # K/uL Sodium 139 (136-145) mmol/L Potassium 4.0 (3.5-5.1) mmol/L Chloride 100 (98-107) mmol/L Carbon Dioxide 28.9 (21.0-32.0) mmol/L BUN 17 (7.0-18.0) mg/dL Creatinine 1.3 H (0.6-1.0) mg/dL Est Cr Clr Drug Dosing 55.13 mL/min Estimated GFR (MDRD) 44.3 ml/min Glucose 91 (74-106) mg/dL Calcium 9.7 (8.5-10.1) mg/dL Total Bilirubin 0.4 (0.2-1.0) mg/dL AST 23 (15-37) IU/L ALT 33 (14-63) IU/L Alkaline Phosphatase 105 (46-116) U/L Total Protein 8.2 (6.4-8.2) g/dL Albumin 4.0 (3.4-5.0) g/dL Globulin 4.2 H (2.6-4.0) g/dL Albumin/Globulin Ratio 1.0 (0.9-1.6) Lipase 197 (73-393) U/L Urine Color Urine Appearance Urine pH (5.0-8.0) Ur Specific [place] (1.001-1.035) Urine Protein (NEGATIVE) mg/dL Urine Glucose (UA) (NEGATIVE) mg/dL Urine Ketones (NEGATIVE) mg/dL Urine Occult Blood (NEGATIVE) Urine Nitrite (NEGATIVE) Urine Bilirubin (NEGATIVE) Urine Urobilinogen (<2.0) EU/dL Ur Leukocyte Esterase (NEGATIVE) Urine HCG, Qual (NEGATIVE) Meds: Medications Generic Name Dose Route Start Last Admin Trade Name Kerwin PRN Reason Stop Dose Admin Sodium Chloride 1,000 mls @ 250 mls/hr 03/09/20 14:36 03/09/20 15:04 Normal Saline IV 03/09/20 18:35 250 mls/hr .Bolus ONE Administration Discontinued Medications Generic Name Dose Route Start Last Admin Trade Name Freq PRN Reason Stop Dose Admin Iopamidol 100 ml 03/09/20 15:05 03/09/20 15:05 Isovue Multipack-370 (76%) IVPUSH 03/09/20 15:06 100 ml ONETIME STA Administration Ketorolac Tromethamine 30 mg 03/09/20 13:19 03/09/20 13:44 Toradol IVPUSH 03/09/20 13:20 30 mg ONETIME ONE Administration Departure - Departure Time of Disposition: 16:01 Disposition: Home, Self-Care 01 Clinical Impression: Back pain Qualifiers: Back pain location: thoracic back pain Chronicity: acute Back pain laterality: right Qualified Code(s): M54.6 - Pain in thoracic spine - Discharge Information Prescriptions: Cyclobenzaprine [Flexeril] 10 mg PO TID PRN #21 tab PRN Reason: Muscle Spasm Diclofenac Sodium [Voltaren] 75 mg PO BIDMEALS PRN #30 tab.cr PRN Reason: Pain Instructions: Acute Back Pain, Adult Referrals: Kristopher Zepeda MD [Primary Care Provider] - Forms: ED Department Discharge Additional Instructions: The following information is given to patients seen in the emergency department who are being discharged to home. This information is to outline your options for follow-up care. We provide all patients seen in our emergency department with a follow-up referral. The need for follow-up, as well as the timing and circumstances, are variable depending upon the specifics of your emergency department visit. If you don't have a primary care physician on staff, we will provide you with a referral. We always advise you to contact your personal physician following an emergency department visit to inform them of the circumstance of the visit and for follow-up with them and/or the need for any referrals to a consulting specialist. The emergency department will also refer you to a specialist when appropriate. This referral assures that you have the opportunity for follow-up care with a specialist. All of these measure are taken in an effort to provide you with optimal care, which includes your follow-up. Under all circumstances we always encourage you to contact your private physi zee who remains a resource for coordinating your care. When calling for follow- up care, please make the office aware that this follow-up is from your recent emergency room visit. If for any reason you are refused follow-up, please contact the [facility] at and asked to speak to the emergency department charge nurse. [facility] [address] [place] [id number] [facility] [address] [place] [address] Thank you for choosing the [facility] emergency department in [place] for your medical needs today. It was a pleasure caring for you. Today you were seen in the emergency department for pain. 1. Today your imagining and lab work showed no acute findings. Your symptoms could be muscular related. Please take the medications as directed and responsibly. Gentle heat to the area. 2. If your symptoms should worsen, new symptoms develop or any of the signs and symptoms we discussed should arise please return to the emergency room or call 911 (if needed). 3. We encourage you to follow up with your primary care provider and/or recommended specialist in the next few days for re-evaluation and further care/management. Sepsis Event Note (ED) - Focused Exam Vital Signs: Vital Signs Temp Pulse Resp BP Pulse Ox 03/09/20 15:05 94 18 98/61 96 03/09/20 14:28 97 18 98/61 97 03/09/20 13:26 97 F 100 18 111/64 96
[2020-03-09] MEDS ORDERED: Ketorolac 30 MG/ML SDV IVPUSH ONE (13:19)
[2020-03-09 14:14] LABS: CARBON DIOXIDE,CO2 28.9 mmol/L (21.0-32.0)
--- NOTE | 2020-03-09 14:32 | CR ---
INDICATION: Right posterior chest wall pain COMPARISON: October 21, 2018 TECHNIQUE: Two views of the chest were acquired FINDINGS: TUBES AND LINES: None. HEART AND MEDIASTINUM: The heart size is normal. The mediastinal contour appears normal for patient age. LUNGS AND PLEURAL SPACES: The lungs appear normal.The pleural spaces are unremarkable. OSSEOUS STRUCTURES: Age-appropriate appearance. No acute focal finding. IMPRESSION: No evidence of active pulmonary disease. Dictated by Zechariah Christianson MD @ Mar 09 2020 2:22PM Signed by Dr. Zechariah Christianson @ Mar 09 2020 2:30PM
[2020-03-09] MEDS ORDERED: Sodium Chloride 0.9% 1,000 ML IV ONE (14:36)
[2020-03-09] MEDS ORDERED: Iopamidol 755 MG/ML 500 ML Multipack Bottle IVPUSH STA (15:05)
--- NOTE | 2020-03-09 15:58 | CT ---
INDICATION: Anterior left lower quadrant abdomen pain and right posterior chest wall pain. TECHNIQUE: CT abdomen and pelvis acquired with 100 cc Isovue 370 IV contrast. COMPARISON: None. FINDINGS: Lower chest: Unremarkable. Liver: Unremarkable. Normal in size and attenuation. No masses. Gallbladder and bile ducts: Unremarkable. No stones or inflammation. No biliary dilatation. Pancreas: Unremarkable. No mass or inflammation. Spleen: Unremarkable. Normal in size. No masses. Adrenal glands: Unremarkable. No nodules. Kidneys: Unremarkable. No masses, stones, or hydronephrosis. GI tract: Unremarkable. Normal in caliber. No sign of mass or inflammation. Normal appendix. Vasculature: Unremarkable. Mesenteric arteries are patent. Lymph nodes: No lymphadenopathy. Omentum/Peritoneum/Abdominal Wall: Unremarkable. No sign of mass or infiltration. No free air or significant free fluid. Pelvis: Unremarkable. Bones: Posterior disc bulge is present at L4-5 and L5-S1. Otherwise unremarkable. IMPRESSION: Unremarkable CT of the abdomen pelvis. No findings to explain left lower quadrant abdomen or chest pain. Please note that all CT scans at this facility use dose modulation, iterative reconstruction, and/or weight-based dosing when appropriate to reduce radiation dose to as low as reasonably achievable. Dictated by Nahid Kaminski MD @ Mar 09 2020 3:48PM Signed by Dr. Nahid Kaminski @ Mar 09 2020 3:57PM
[2020-03-09 18:43] VITALS: BP 99/67; PULSE 99
== END 2020-03-09 16:17 | disposition home or self-care (01) ==
LOC: MW.ED 12:30
DX: M54.6 Pain in thoracic spine (principal); I10 Essential (primary) hypertension; D72.829 Elevated white blood cell count, unspecified; J45.909 Unspecified asthma, uncomplicated; F31.9 Bipolar disorder, unspecified; E66.9 Obesity, unspecified; Z68.36 Body mass index [BMI] 36.0-36.9, adult; Z88.1 Allergy status to other antibiotic agents; Z79.899 Other long term (current) drug therapy
CPT/HCPCS: 36415; 71046; 74177; 80053; 81003; 81025; 83690; 85025; 96374; 99285; J1885; J7030; Q9967

== ENCOUNTER 2020-06-15 13:29 | Emergency (ER) | payer MEDICARE, MEDICAID ==
[2020-06-15] MEDS ORDERED: Glucagon,Human Recombinant 1 MG Vial IVPUSH ONE (13:48)
--- NOTE | 2020-06-15 13:50 | EDM.PDOC ---
ED HPI GENERAL MEDICAL PROBLEM - General Chief Complaint: Respiratory Problem Stated Complaint: SHORTNESS OF BREATH Time Seen by Provider: 06/15/20 13:31 Source of Information: Reports: Patient History Limitations: Reports: No Limitations - History of Present Illness INITIAL COMMENTS - FREE TEXT/NARRATIVE: HISTORY AND PHYSICAL: History of present illness: Patient is a 44-year-old female who presents to the emergency room today with complaints of a sensation to her esophagus. She states this morning, approximately 4 hours ago, she was eating a cream puff when she felt like it was stuck in her throat. She has been attempting to cough to "force it out". She has no difficulty with breathing, she has been eating and drinking appropriately. Patient denies any fever, chills, headache, change in vision, syncope or near syncope. Denies any chest pain, back pain, shortness of breath or cough. Denies any abdominal pain, nausea, vomiting, diarrhea, constipation or dysuria. Has not noted any blood in urine or stool. Patient has been eating and drinking appropriately. Review of systems: As per history of present illness and below otherwise all systems reviewed and negative. Past medical history: As per history of present illness and as reviewed below otherwise noncontributory. Surgical history: As per history of present illness and as reviewed below otherwise no ncontributory. Social history: See social history for further information Family history: As per history of present illness and as reviewed below otherwise noncontributory. Physical exam: General: Well developed and well nourished. Alert and orientated x 3. Nontoxic in appearance and in no acute distress. Vital signs are stable and have been reviewed by me. Nursing notes were reviewed. HEENT: Atraumatic, normocephalic, pupils equal and reactive bilaterally, negative for conjunctival pallor or scleral icterus, mucous membranes moist, TMs normal bilaterally, throat clear, neck supple, nontender, trachea midline. No drooling or trismus noted. No meningeal signs. No hot potato voice noted. Lungs: Clear to auscultation bilaterally. No wheezes, rales, or rhonchi. Chest nontender. Normal work of breathing, no accessory muscles used. Heart: S1S2, regular rate and rhythm without overt murmur, gallops, or rubs. No JVD. No peripheral edema Abdomen: Soft, nondistended, nontender. Normoactive bowel sounds. Negative for masses or costovertebral tenderness. Skin: Intact, warm, dry. No lesions or rashes noted. Hematologic: No petechiae or purpra. Mucosa appropriate color and normal nail b ed color and refill. Extremities: Atraumatic, moves all extremities per self without difficulty or deficits, negative for cords or calf pain. Neurovascular unremarkable. Neuro: Awake, alert, oriented. Cranial nerves II through XII unremarkable. Cerebellum unremarkable. Motor and sensory unremarkable throughout. Exam nonfocal. Psychiatric: Mood and affect are appropriate. Normal thought process. Answering questions appropriately. Notes: *This patient was seen and evaluated during the 2019 SARS-CoV-2 novel coronavirus pandemic period. Community viral transmission is ongoing at time of this encounter and the emergency department is operating under pandemic response procedures. Patient's physical exam is within normal limits. She has been eating and drinking appropriately without any nausea, vomiting, drooling, difficulty breathing. States she does have the sensation of something in her throat, we will do a chest x-ray and give her some glucagon with p.o. challenge afterwards. Patient feels improved. I have talked with the patient about today's findings, in addition to providing specific details for plan of care. Reassessment at the time of disposition demonstrates that the patient is in no acute distress. The patient is stable for discharge, counseling was provided and we discussed in great detail signs and symptoms that would prompt them to return to the Emergency Department. Medication, follow up and supportive care measures were reviewed and discussed. Voices understanding and is agreeable to plan of care. Denies any further questions or concerns at this time. Diagnostics: Chest x-ray Therapeutics: Glucagon, NS, GI cocktail Prescription: None Impression: Sensation of foreign body in throat Plan: 1. You were evaluated today on an emergent basis. Your airway has been patent and you've kept food/liquids down. Sensation your feeling may be due to scratch or irritation from the food. Continue to drink water. 2. You can alternate Tylenol and ibuprofen as needed for pain and fever management. 3. We encourage you to follow up with your primary care provider and/or recommended specialist in the next few days for re-evaluation and further care/management. 4. If your symptoms should worsen, new symptoms develop or any of the signs and symptoms we discussed should arise please return to the emergency room or call 911 (if needed). Definitive disposition and diagnosis as appropriate pending reevaluation and review of above. - Related Data Allergies Allergy/AdvReac Type Severity Reaction Status Date / Time ciprofloxacin [From Cipro] Allergy Hallucinati Verified 06/15/20 14:23 ons Home Meds: Home Meds ARIPiprazole [Abilify] 10 mg PO DAILY 10/09/14 [History] Lisinopril 20 mg PO DAILY 05/31/16 [History] atoMOXetine HCl [Strattera] 100 mg PO DAILY 05/31/16 [History] Albuterol [Proair HFA] 1 - 2 puff INH Q4H PRN 05/14/17 [History] atoMOXetine [Strattera] 40 mg PO DAILY 05/14/17 [History] LORazepam [Ativan] 0.5 mg PO QPM PRN #5 tablet 06/01/17 [Rx] Cyclobenzaprine [Flexeril] 10 mg PO TID PRN #21 tab 03/09/20 [Rx] Diclofenac Sodium [Voltaren] 75 mg PO BIDMEALS PRN #30 tab.cr 03/09/20 [Rx] Past Medical History - Past Health History Medical/Surgical History: Denies Medical/Surgical History HEENT History: Reports: Sinusitis Other HEENT History: wears glasses/contacts Cardiovascular History: Reports: Hypertension Respiratory History: Reports: Asthma Other Respiratory History: uses inhaler weekly Gastrointestinal History: Reports: Chronic Constipation, Colon Polyp, GERD, PUD Genitourinary History: Reports: None 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: 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, Musculoskeletal History: Reports: Other (See Below) Other Musculoskeletal History: states "I think I have fibromalgia" not diagnosed Psychiatric History: Reports: Bipolar Endocrine/Metabolic History: Reports: Obesity/BMI 30+ Dermatologic History: Reports: Other (See Below) Other Dermatologic History: dermatagraphism - Infectious Disease History Infectious Disease History: Reports: Chicken Pox - Past Surgical History HEENT Surgical History: Reports: Tonsillectomy Cardiovascular Surgical History: Reports: None Respiratory Surgical History: Reports: None GI Surgical History: Reports: Colonoscopy, Other (See Below) Other GI Surgeries/Procedures: benign tumor removed from abdomen Female Surgical History: Reports: Endometrial Ablation, LEEP, Other (See Below) Other Female Surgeries/Procedures: laparoscopy for removal of endometriosis Endocrine Surgical History: Reports: None Social & Family History - Family History Family Medical History: No Pertinent Family History - Caffeine Use Caffeine Use: Reports: Coffee - Living Situation & Occupation Living situation: Reports: Single Occupation: Employed ED ROS GENERAL - Review of Systems Review Of Systems: Comprehensive ROS is negative, except as noted in HPI. ED EXAM, GENERAL - Physical Exam Exam: See Below (See dictation) Course - Vital Signs Last Recorded V/S: Last Vital Signs Temp 97.5 F 06/15/20 14:23 Pulse 100 06/15/20 15:29 Resp 16 06/15/20 15:29 BP 109/73 06/15/20 15:29 Pulse Ox 98 06/15/20 15:29 - Orders/Labs/Meds Orders: Active Orders 24 hr Category Date Time Status Communication Order [RC] STAT Care 06/15/20 14:27 Active Chest 2V [CR] Stat Exams 06/15/20 13:48 Taken Sodium Chloride 0.9% [Normal Saline] 1,000 ml Med 06/15/20 14:00 Active IV ASDIRECTED Medication Orders Sodium Chloride (Normal Saline) 1,000 mls @ 150 mls/hr IV ASDIRECTED ESTEPHANIE Last Admin: 06/15/20 14:15 Dose: 150 mls/hr Documented by: KARLOS Meds: Medications Generic Name Dose Route Start Last Admin Trade Name Freq PRN Reason Stop Dose Admin Sodium Chloride 1,000 mls @ 150 mls/hr 06/15/20 14:00 06/15/20 14:15 Normal Saline IV 150 mls/hr ASDIRECTED ESTEPHANIE Administration Discontinued Medications Generic Name Dose Route Start Last Admin Trade Name Freq PRN Reason Stop Dose Admin Al Hydroxide/Mg Hydroxide 15 0 ml 06/15/20 14:59 06/15/20 15:11 ml/ Lidocaine HCl 5 ml PO 06/15/20 15:00 1 each ONETIME ONE Administration Glucagon 1 mg 06/15/20 13:48 06/15/20 14:15 Glucagon,Human Recombinant 1 Mg Vial IVPUSH 06/15/20 13:49 1 mg ONETIME ONE Administration Departure - Departure Time of Disposition: 15:00 Disposition: Home, Self-Care 01 Clinical Impression: Sensation of foreign body in throat - Discharge Information Instructions: Swallowed Foreign Body, Adult Referrals: PCP,None [Ordering Only Provider] - Forms: ED Department Discharge Additional Instructions: The following information is given to patients seen in the emergency department who are being discharged to home. This information is to outline your options for follow-up care. We provide all patients seen in our emergency department with a follow-up referral. The need for follow-up, as well as the timing and circumstances, are variable depending upon the specifics of your emergency department visit. If you don't have a primary care physician on staff, we will provide you with a referral. We always advise you to contact your personal physician following an emergency department visit to inform them of the circumstance of the visit and for follow-up with them and/or the need for any referrals to a consulting specialist. The emergency department will also refer you to a specialist when appropriate. This referral assures that you have the opportunity for follow-up care with a specialist. All of these measure are taken in an effort to provide you with optimal care, which includes your follow-up. Under all circumstances we always encourage you to contact your private physician who remains a resource for coordinating your care. When calling for follow-up care, please make the office aware that this follow-up is from your recent emergency room visit. If for any reason you are refused follow-up, please contact the [facility] Emergency Department at and asked to speak to the emergency department charge nurse. [facility] [address] [place] [address] [place] [address] Thank you for choosing the [facility] emergency department in [place] for your medical needs today. It was a pleasure caring for you. Today you were seen in the emergency department for throat irritation 1. You were evaluated today on an emergent basis. Your airway has been patent and you've kept food/liquids down. Sensation your feeling may be due to scratch or irritation from the food. Continue to drink water. 2. You can alternate Tylenol and ibuprofen as needed for pain and fever management. 3. We encourage you to follow up with your primary care provider and/or recommended specialist in the next few days for re-evaluation and further care/management. 4. If your symptoms should worsen, new symptoms develop or any of the signs and symptoms we discussed should arise please return to the emergency room or call 911 (if needed). Sepsis Event Note (ED) - Focused Exam Vital Signs: Vital Signs Temp Pulse Resp BP Pulse Ox 06/15/20 15:29 100 16 109/73 98 06/15/20 14:23 97.5 F 81 16 119/70 96 - My Orders Last 24 Hours: My Active Orders 06/15/20 13:48 Chest 2V [CR] Stat 06/15/20 14:00 Sodium Chloride 0.9% [Normal Saline] 1,000 ml IV ASDIRECTED 06/15/20 14:27 Communication Order [RC] STAT - Assessment/Plan Last 24 Hours: My Active Orders 06/15/20 13:48 Chest 2V [CR] Stat 06/15/20 14:00 Sodium Chloride 0.9% [Normal Saline] 1,000 ml IV ASDIRECTED 06/15/20 14:27 Communication Order [RC] STAT
[2020-06-15] MEDS ORDERED: Sodium Chloride 0.9% 1,000 ML IV SCH (14:00)
[2020-06-15] MEDS ORDERED: Alum Hydrox/Mag Hydrox/Simeth 15 ML, Lidocaine 2% 5 ML PO ONE ×2 (14:59)
[2020-06-15 15:29] VITALS: BP 109/73; PULSE 100
--- NOTE | 2020-06-15 16:35 | CR ---
INDICATION: pain, sob TECHNIQUE: Chest 2 views. COMPARISON: None. FINDINGS: Cardiovascular and mediastinum: Heart size and vasculature are normal in caliber and appearance. Mediastinum is within normal limits. Lungs and pleural spaces: Lungs are clear. No sign of infiltrate or mass. No sign of pleural effusion. No pneumothorax. Bones and soft tissues: No significant findings. IMPRESSION: Unremarkable chest. Dictated by: Cirilo Bradford MD @ 06/15/2020 16:34:50 (Electronically Signed)
== END 2020-06-15 15:29 | disposition home or self-care (01) ==
LOC: MW.ED 13:29
DX: R09.89 Other specified symptoms and signs involving the circulatory and respiratory systems (principal); I10 Essential (primary) hypertension; J45.909 Unspecified asthma, uncomplicated; E66.9 Obesity, unspecified; Z68.37 Body mass index [BMI] 37.0-37.9, adult; Z88.1 Allergy status to other antibiotic agents; Z79.899 Other long term (current) drug therapy
CPT/HCPCS: 71046; 96374; 99283; A9270; J1610; J7030

== ENCOUNTER 2020-10-05 08:39 | Day surgery (SDC) | payer MEDICARE, MEDICAID ==
[~2020-10-05 08:39] MED LIST changes: +Lidocaine 2% 5 ML SDV ONE; +Midazolam 1 MG/ML 2 ML SDV ONE; +Ondansetron 4 MG/2 ML SDV ONE; +Sodium Chloride 0.9% 10 ML SDV IV PRN; +fentaNYL 100 MCG/2 ML SDV ONE; +propofoL 50 ML ONE
--- NOTE | 2020-10-05 09:25 | PCM.PREANE ---
Preanesthetic Assessment - Anesthesia/Transfusion/Family Hx Anesthesia History: Prior Anesthesia Without Reaction Other Type of Anesthesia Reaction Comment: states she needs "more" anesthesia because she is a redhead Family History of Anesthesia Reaction: No Transfusion History: No Prior Transfusion(s) Intubation History: Unknown - Review of Systems General: No Symptoms Pulmonary: No Symptoms Cardiovascular: No Symptoms Gastrointestinal: No Symptoms Neurological: No Symptoms Other: Reports: None - Physical Assessment NPO Status Date: 10/05/20 NPO Status Time: 00:00 Vital Signs: Last Vital Signs Temp 97.2 F 10/05/20 09:04 Pulse 76 10/05/20 09:04 Resp 18 10/05/20 09:04 BP 98/67 10/05/20 09:04 Pulse Ox 96 10/05/20 09:04 Height: 5 ft 8 in Weight: 256 lb ASA Class: 3 Airway Class: Mallampati = 3 Dentition: Reports: Normal Dentition Thyro-Mental Finger Breadths: 2 Mouth Opening Finger Breadths: 2 ROM/Head Extension: Limited/Partial Lungs: Clear to Auscultation, Normal Respiratory Effort Cardiovascular: Regular Rate, Regular Rhythm - Lab Values: Laboratory Last Values Urine HCG, Qual NEGATIVE (NEGATIVE) 10/05/20 09:07 - Allergies Allergies/Adverse Reactions: Allergies Allergy/AdvReac Type Severity Reaction Status Date / Time ciprofloxacin [From Cipro] Allergy Abdominal Verified 10/05/20 08:59 Cramps - Acknowledgements Anesthesia Type Planned: General Anesthesia Pt an Appropriate Candidate for the Planned Anesthesia: Yes Alternatives and Risks of Anesthesia Discussed w Pt/Guardian: Yes Pt/Guardian Understands and Agrees with Anesthesia Plan: Yes PreAnesthesia Questionnaire - Past Health History Medical/Surgical History: Denies Medical/Surgical History HEENT History: Reports: Sinusitis Other HEENT History: wears glasses/contacts Cardiovascular History: Reports: Hypertension Respiratory History: Reports: Asthma Other Respiratory History: uses inhaler weekly Gastrointestinal History: Reports: Chronic Constipation, Colon Polyp, GERD, PUD Genitourinary History: Reports: None 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: Reports: 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, Musculoskeletal History: Reports: Other (See Below) Other Musculoskeletal History: states "I think I have fibromalgia" not diagnosed Neurological History: Reports: None Psychiatric History: Reports: Bipolar Endocrine/Metabolic History: Reports: Obesity/BMI 30+ Hematologic History: Reports: None Immunologic History: Reports: None Oncologic (Cancer) History: Reports: None Dermatologic History: Reports: Other (See Below) Other Dermatologic History: dermatagraphism - Infectious Disease History Infectious Disease History: Reports: Chicken Pox - Past Surgical History Head Surgeries/Procedures: Reports: None HEENT Surgical History: Reports: Tonsillectomy Cardiovascular Surgical History: Reports: None Respiratory Surgical History: Reports: None GI Surgical History: Reports: Colonoscopy, Other (See Below) Other GI Surgeries/Procedures: benign tumor removed from abdomen Female Surgical History: Reports: Endometrial Ablation, LEEP, Other (See Below) Other Female Surgeries/Procedures: laparoscopy for removal of endometriosis Endocrine Surgical History: Reports: None Neurological Surgical History: Reports: None Musculoskeletal Surgical History: Reports: None Oncologic Surgical History: Reports: None Dermatological Surgical History: Reports: None - SUBSTANCE USE Tobacco Use Status *Q: Current Every Day Tobacco User Tobacco Use Within Last Twelve Months: Cigarettes Recreational Drug Type: Reports: Marijuana/Hashish Recreational Drug Last Use: "3 weeks ago" - HOME MEDS Home Medications: Home Meds ARIPiprazole [Abilify] 10 mg PO DAILY 10/09/14 [History] Albuterol [Proair HFA] 1 - 2 puff INH Q4H PRN 05/14/17 [History] atoMOXetine [Strattera] 140 mg PO DAILY 05/14/17 [History] LORazepam [Ativan] 0.5 mg PO ASDIRECTED PRN 10/03/20 [History] Lisinopril/Hydrochlorothiazide [Lisinopril-Hctz 20-25 mg Tab] 1 tab PO DAILY 10/03/20 [History] Omeprazole Magnesium [Prilosec Otc] 20 mg PO DAILY 10/03/20 [History] - CURRENT (IN HOUSE) MEDS Current Meds: Current Medications Lactated Ringer's (Ringers, Lactated) 1,000 mls @ 125 mls/hr IV ASDIRECTED ESTEPHANIE Sodium Chloride (Sodium Chloride 0.9% 10 Ml Syringe) 10 ml FLUSH ASDIRECTED PRN PRN Reason: Keep Vein Open Sodium Chloride (Sodium Chloride 0.9% 2.5 Ml Syringe) 2.5 ml FLUSH ASDIRECTED PRN PRN Reason: Keep Vein Open Sodium Chloride (Sodium Chloride 0.9% 10 Ml Syringe) 10 ml FLUSH ASDIRECTED PRN PRN Reason: Keep Vein Open Sodium Chloride (Sodium Chloride 0.9% 2.5 Ml Syringe) 2.5 ml FLUSH ASDIRECTED PRN PRN Reason: Keep Vein Open Sodium Chloride (Sodium Chloride 0.9% 10 Ml Sdv) 10 ml IV ASDIRECTED PRN PRN Reason: IV Use Discontinued Medications Fentanyl (Fentanyl 100 Mcg/2 Ml Sdv) Confirm Administered Dose 100 mcg .ROUTE .STK-MED ONE Stop: 10/05/20 07:00 Propofol (Diprivan 50 Ml) Confirm Administered Dose 50 mls @ as directed .ROUTE .STK-MED ONE Stop: 10/05/20 07:04 Lidocaine (Lidocaine 2% 5 Ml Sdv) Confirm Administered Dose 5 ml .ROUTE .STK-MED ONE Stop: 10/05/20 07:00 Midazolam HCl (Midazolam 1 Mg/Ml 2 Ml Sdv) Confirm Administered Dose 2 mg .ROUTE .STK-MED ONE Stop: 10/05/20 07:00 Ondansetron HCl (Ondansetron 4 Mg/2 Ml Sdv) Confirm Administered Dose 4 mg .ROUTE .STK-MED ONE Stop: 10/05/20 07:00
[2020-10-05] MEDS ORDERED: Esmolol 100 MG/10 ML SDV ONE (10:37)
[2020-10-05] MEDS ORDERED: Metoprolol Tartrate 5 MG/5 ML SDV ONE (11:00)
--- NOTE | 2020-10-05 11:27 | PCM.POSTAN ---
POST ANESTHESIA ASSESSMENT - MENTAL STATUS Mental Status: Alert, Oriented - VITAL SIGNS Vital Signs: Last Vital Signs Temp 97.2 F 10/05/20 09:04 Pulse 100 10/05/20 11:23 Resp 9 L 10/05/20 11:23 BP 83/53 L 10/05/20 11:23 Pulse Ox 96 10/05/20 11:23 - RESPIRATORY Respiratory Status: Respiratory Rate WNL, Airway Patent, O2 Saturation Stable - CARDIOVASCULAR CV Status: Pulse Rate WNL, Blood Pressure Stable - GASTROINTESTINAL GI Status: No Symptoms - POST OP HYDRATION Hydration Status: Adequate & Stable
--- NOTE | 2020-10-05 11:28 | PCM48HPAN ---
Post Anesthesia Note - EVALUATION WITHIN 48HRS OF ANESTHETIC Vital Signs in Normal Range: Yes Patient Participated in Evaluation: Yes Respiratory Function Stable: Yes Airway Patent: Yes Cardiovascular Function Stable: Yes Hydration Status Stable: Yes Pain Control Satisfactory: Yes Nausea and Vomiting Control Satisfactory: Yes Mental Status Recovered: Yes Vital Signs: Last Vital Signs Temp 97.2 F 10/05/20 09:04 Pulse 100 10/05/20 11:23 Resp 9 L 10/05/20 11:23 BP 83/53 L 10/05/20 11:23 Pulse Ox 96 10/05/20 11:23
[2020-10-05 11:30] VITALS: PULSE 98
[2020-10-05 12:49] VITALS: BP 99/60
--- NOTE | 2020-10-05 13:03 | PCM.OPNOTE ---
- General Post-Op/Procedure Note Date of Surgery/Procedure: 10/05/20 Operative Procedure(s): Diagnostic egd and colonoscopy Findings: small hiatal hernia, transverse colon x 2, sigmoid x 2, descending colon polyp x 1 Pre Op Diagnosis: Change in bowel habits, nausea bloating Post-Op Diagnosis: Hiatal hernia, transverse colon polyp x2, descending colon polyp x 1, sigmoid colon polyp x 2 Anesthesia Technique: MAC Primary Surgeon: Moraima Iverson Condition: Good Free Text/Narrative:: Intake & Output 10/04/20 10/05/20 10/05/20 22:59 06:59 14:59 Intake Total 900 Balance 900
--- NOTE | 2020-10-06 12:37 | OR ---
SURGEON: MORAIMA IVERSON MD DATE OF PROCEDURE: 10/05/2020 PREOPERATIVE DIAGNOSIS: Change in bowel habits, nausea, bloating. POSTOPERATIVE DIAGNOSES: 1. Hiatal hernia. 2. Transverse colon polyp x2. 3. Descending colon polyp x1. 4. Sigmoid colon polyps x2. PROCEDURES PERFORMED: Diagnostic esophagogastroduodenoscopy and colonoscopy. PRIMARY SURGEON: Moraima Iverson MD ANESTHESIA: MAC. INSTRUMENTS USED: Olympus endoscope and colonoscope. EXTENT OF EXAM: To the second portion of duodenum, to the cecum. PREPARATION: Good. LIMITATIONS: None. INDICATIONS FOR EXAMINATION: The patient is a 44-year-old female who presented to my clinic with nausea, bloating, as well as a change in her bowel habits. After discussion of her symptoms, it was decided to proceed with diagnostic EGD and colonoscopy. The patient and I discussed the procedure, expected perioperative course, and the risks. She verbalized understanding and wishes to proceed. PROCEDURE IN DETAIL: The patient was brought in to the endoscopy suite and placed in a left lateral decubitus position. A time-out was completed verifying the patient's name, age, date of , allergies, and procedure to be performed. A bite block was placed in the patient's mouth. Monitored anesthesia care was induced and continuous oxygen was provided via face mask throughout the procedure. After adequate sedation was achieved, a well-lubricated endoscope was placed in the patient's mouth and advanced under direct visualization to the second portion of the duodenum. This appeared normal and a photograph was taken. The scope was then straightened out and fully withdrawn while examining the color, texture, anatomy, and integrity of mucosa of the upper GI tract. The duodenum all appeared normal. A biopsy was taken in the duodenal bulb and sent to Pathology for histologic review. The scope was then brought into the stomach and a photograph was taken of pylorus and GE junction. The patient appeared to have a very small hiatal hernia. The gastric mucosa all appeared to be free of inflammation or any gross ulceration. Biopsies were taken of the gastric antrum, body, and fundus and sent for histologic review and H pylori testing. The scope was then brought into the distal esophagus and a photograph was taken of the Z-line. This appeared grossly normal. A biopsy was taken of the distal esophageal mucosa and sent to Pathology. The remainder of the esophagus was normal. The scope was removed and this portion of the procedure terminated. A digital rectal exam was performed. This exam was within normal limits. A well- lubricated colonoscope was inserted in the rectum and advanced under direct visualization to the level of the cecum. The cecum was identified by both visual and anatomic landmarks. A photograph was taken of the cecal cap; however, I was unable to retroflex the scope within the cecum due to looping of the scope more proximally. The scope was then straightened out and fully withdrawn while examining the color, texture, anatomy, and integrity of the mucosa from the cecum to the anal canal. The patient was found to have polyps throughout the colon. There were two in the transverse colon, one in the descending colon, and two in the sigmoid colon. These were removed in piecemeal fashion as well as with the assistance of a hot snare. The remainder of the colonic mucosa appeared normal. The scope was then brought into the rectum and retroflexed to allow visualization of the anal canal opening. This appeared normal and a photograph was taken. The scope was then straightened out and fully withdrawn. The cecum to anus time was 17 minutes. The patient tolerated the procedure well and was transferred to the PACU in stable condition. ENDOSCOPIC DIAGNOSES: 1. Hiatal hernia. 2. Transverse colon polyp x2. 3. Descending colon polyp x1. 4. Sigmoid colon polyps x2. RECOMMENDATION: Follow up in clinic in two weeks. NANETTE MCDANIELS /[id number]
== END 2020-10-05 12:05 | disposition home or self-care (01) ==
LOC: MW.SDS 08:39
PROVIDERS: ATTEND Surgery
DX: D12.3 Benign neoplasm of transverse colon (principal); D12.5 Benign neoplasm of sigmoid colon; K44.9 Diaphragmatic hernia without obstruction or gangrene; K52.9 Noninfective gastroenteritis and colitis, unspecified; I12.9 Hypertensive chronic kidney disease with stage 1 through stage 4 chronic kidney disease, or unspecified chronic kidney disease; N18.9 Chronic kidney disease, unspecified; J45.909 Unspecified asthma, uncomplicated; G47.33 Obstructive sleep apnea (adult) (pediatric); F17.210 Nicotine dependence, cigarettes, uncomplicated; E66.9 Obesity, unspecified; Z86.010 Personal history of colon polyps; Z68.38 Body mass index [BMI] 38.0-38.9, adult
CPT/HCPCS: 43239; 45385; 81025; J2250; J2405; J2704; J3010; J3490; J7120; 00813; 88305; 88342

== ENCOUNTER 2020-11-02 06:32 | Day surgery (SDC) | payer MEDICARE, MEDICAID ==
[2020-11-02] MEDS ORDERED: Lactated Ringers 1,000 ML IV SCH ×2 (06:45→12:15)
[2020-11-02] MEDS ORDERED: Scopolamine 1.5 MG Transdermal Patch ONE (06:50)
--- NOTE | 2020-11-02 07:18 | PCM.PREANE ---
Preanesthetic Assessment - Procedure Proposed Procedure: Lap Hysterectomy - Anesthesia/Transfusion/Family Hx Anesthesia History: Prior Anesthesia Without Reaction Other Type of Anesthesia Reaction Comment: states she needs "more" anesthesia because she is a redhead Transfusion History: No Prior Transfusion(s) Intubation History: Unknown - Review of Systems General: No Symptoms Pulmonary: No Symptoms (Smokes 1/2 PPD, Asthma with MDI used PRN) Cardiovascular: No Symptoms (HTN, well controlled) Gastrointestinal: No Symptoms Neurological: No Symptoms Other: Reports: None - Physical Assessment NPO Status Date: 11/01/20 NPO Status Time: 20:30 Vital Signs: Last Vital Signs Temp 97.3 F 11/02/20 06:52 Pulse 100 11/02/20 06:52 Resp 16 11/02/20 06:52 BP 109/85 11/02/20 06:52 Pulse Ox 96 11/02/20 06:52 Height: 5 ft 8 in Weight: 115.212 kg ASA Class: 3 Mental Status: Alert & Oriented x3 Dentition: Reports: Normal Dentition Thyro-Mental Finger Breadths: 3 Mouth Opening Finger Breadths: 3 ROM/Head Extension: Full Lungs: Clear to Auscultation, Normal Respiratory Effort Cardiovascular: Regular Rate, Regular Rhythm - Lab Values: Laboratory Last Values Hgb 14.8 g/dL (12.0-16.0) 10/31/20 11:04 Hct 44.1 % (36.0-46.0) 10/31/20 11:04 Urine HCG, Qual NEGATIVE (NEGATIVE) 10/31/20 11:04 Blood Type O POSITIVE 10/31/20 11:00 Antibody Screen NEGATIVE 10/31/20 11:00 - Allergies Allergies/Adverse Reactions: Allergies Allergy/AdvReac Type Severity Reaction Status Date / Time ciprofloxacin [From Cipro] Allergy Abdominal Verified 11/02/20 07:06 Cramps - Acknowledgements Anesthesia Type Planned: General Anesthesia Pt an Appropriate Candidate for the Planned Anesthesia: Yes Alternatives and Risks of Anesthesia Discussed w Pt/Guardian: Yes Pt/Guardian Understands and Agrees with Anesthesia Plan: Yes PreAnesthesia Questionnaire - Past Health History Medical/Surgical History: Denies Medical/Surgical History HEENT History: Reports: Sinusitis Other HEENT History: wears glasses/contacts Cardiovascular History: Reports: Hypertension Respiratory History: Reports: Asthma Other Respiratory History: uses inhaler weekly Gastrointestinal History: Reports: Chronic Constipation, Colon Polyp, GERD, PUD Genitourinary History: Reports: None [employer] History: Reports: 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, Musculoskeletal History: Reports: Other (See Below) Other Musculoskeletal History: states "I think I have fibromalgia" not diagnosed Neurological History: Reports: None Psychiatric History: Reports: Bipolar Endocrine/Metabolic History: Reports: Obesity/BMI 30+ Hematologic History: Reports: None Immunologic History: Reports: None Oncologic (Cancer) History: Reports: None Dermatologic History: Reports: Other (See Below) Other Dermatologic History: dermatagraphism - Infectious Disease History Infectious Disease History: Reports: Chicken Pox - Past Surgical History Head Surgeries/Procedures: Reports: None HEENT Surgical History: Reports: Tonsillectomy Cardiovascular Surgical History: Reports: None Respiratory Surgical History: Reports: None GI Surgical History: Reports: Colonoscopy, Other (See Below) Other GI Surgeries/Procedures: benign tumor removed from abdomen Female Surgical History: Reports: Endometrial Ablation, LEEP, Other (See Below) Other Female Surgeries/Procedures: laparoscopy for removal of endometriosis Endocrine Surgical History: Reports: None Neurological Surgical History: Reports: None Musculoskeletal Surgical History: Reports: None Oncologic Surgical History: Reports: None Dermatological Surgical History: Reports: None - SUBSTANCE USE Tobacco Use Status *Q: Current Every Day Tobacco User Tobacco Use Within Last Twelve Months: Cigarettes Recreational Drug Use History: Yes Recreational Drug Type: Reports: Marijuana/Hashish - HOME MEDS Home Medications: Home Meds ARIPiprazole [Abilify] 10 mg PO DAILY 10/09/14 [History] Albuterol [Proair HFA] 1 - 2 puff INH Q4H PRN 05/14/17 [History] atoMOXetine [Strattera] 140 mg PO DAILY 05/14/17 [History] LORazepam [Ativan] 0.5 mg PO ASDIRECTED PRN 10/03/20 [History] Lisinopril/Hydrochlorothiazide [Lisinopril-Hctz 20-25 mg Tab] 1 tab PO DAILY 10/03/20 [History] Omeprazole Magnesium [Prilosec Otc] 20 mg PO DAILY 10/03/20 [History] - CURRENT (IN HOUSE) MEDS Current Meds: Current Medications Lactated Ringer's (Ringers, Lactated) 1,000 mls @ 125 mls/hr IV ASDIRECTED ESTEPHANIE Last Admin: 11/02/20 07:06 Dose: 125 mls/hr Documented by: Discontinued Medications Scopolamine (Scopolamine 1.5 Mg Transdermal Patch) Confirm Administered Dose 1.5 mg .ROUTE .[facility] ONE Stop: 11/02/20 06:51 Last Admin: 11/02/20 07:06 Dose: 1.5 mg Documented by:
[2020-11-02] MEDS ORDERED: Fluorescein 5 ML Vial ONE (07:19)
[2020-11-02] MEDS ORDERED: Octyl 2-Cyanoacrylate 1 Tube ONE (07:19)
[2020-11-02] MEDS ORDERED: Sodium Chloride 0.9% 20 ML ONE (07:19)
[2020-11-02] MEDS ORDERED: Dexamethasone 4 MG/ML 5 ML MDV ONE (07:20)
[2020-11-02] MEDS ORDERED: Glycopyrrolate 0.2 MG/ML SDV ONE (07:20)
[2020-11-02] MEDS ORDERED: Rocuronium Bromide 50 MG/5 ML Syringe ONE (07:20)
[2020-11-02] MEDS ORDERED: Metoclopramide 10 MG/2 ML SDV ONE (07:20)
[2020-11-02] MEDS ORDERED: Dexmedetomidine 200 MCG/2 ML SDV ONE (07:20)
[2020-11-02] MEDS ORDERED: Ondansetron 4 MG/2 ML SDV ONE (07:20)
[2020-11-02] MEDS ORDERED: Ketorolac 30 MG/ML SDV ONE (07:20)
[2020-11-02] MEDS ORDERED: Lidocaine 2% 5 ML SDV ONE (07:20)
[2020-11-02] MEDS ORDERED: fentaNYL 250 MCG/5 ML SDV ONE (07:21)
[2020-11-02] MEDS ORDERED: Propofol 200 MG/20 ML SDV ONE (07:21)
[2020-11-02] MEDS ORDERED: Ketamine 500 mg/10 ML MDV ONE (07:21)
[2020-11-02] MEDS ORDERED: Metoclopramide 10 MG/2 ML SDV IVPUSH PRN (07:38)
[2020-11-02] MEDS ORDERED: Naloxone 0.4 MG/ML Syringe IVPUSH PRN (07:38)
[2020-11-02] MEDS ORDERED: Morphine 2 MG/ML SYRINGE IVPUSH PRN (07:38)
[2020-11-02] MEDS ORDERED: Ondansetron 4 MG/2 ML SDV IVPUSH PRN ×2 (07:38→09:28)
[2020-11-02] MEDS ORDERED: Albuterol 0.083% 2.5 MG/3 ML Neb Soln NEB PRN (07:38)
[2020-11-02] MEDS ORDERED: fentaNYL 100 MCG/2 ML SDV IVPUSH PRN (07:38)
[2020-11-02] MEDS ORDERED: ceFAZolin 1 GM Vial ONE (08:01)
[2020-11-02] MEDS ORDERED: Esmolol 100 MG/10 ML SDV ONE (08:09)
[2020-11-02] MEDS ORDERED: HYDROmorphone 2 MG/ML Syringe ONE (08:33)
[2020-11-02] MEDS ORDERED: Sugammadex Sodium 200 MG/2 ML VIAL ONE (08:34)
[2020-11-02] MEDS ORDERED: Ketorolac 30 MG/ML SDV IVPUSH PRN (09:28)
[2020-11-02] MEDS ORDERED: Acetaminophen/oxyCODONE 325-5 MG Tab PO PRN ×2 (09:28)
[2020-11-02] MEDS ORDERED: Ketorolac 30 MG/ML SDV IVPUSH ONE (09:28)
[2020-11-02] MEDS ORDERED: Promethazine 25 MG/ML SDV IM PRN (09:28)
[2020-11-02] MEDS ORDERED: Morphine 4 MG/ML Syringe IVPUSH PRN (09:28)
--- NOTE | 2020-11-02 09:37 | PCM.OPNOTE ---
- General Post-Op/Procedure Note Date of Surgery/Procedure: 11/02/20 Operative Procedure(s): TLH.RS and Cystoscopy. Pre Op Diagnosis: Bleeding Post-Op Diagnosis: Same Anesthesia Technique: General ET Tube Primary Surgeon: Nick Denise EBL in mLs: 50 Complications: None Condition: Good
--- NOTE | 2020-11-02 09:52 | PCM.POSTAN ---
POST ANESTHESIA ASSESSMENT - MENTAL STATUS Mental Status: Alert, Oriented - VITAL SIGNS Vital Signs: Last Vital Signs Temp 98.6 F 11/02/20 09:43 Pulse 107 H 11/02/20 09:43 Resp 12 11/02/20 09:43 BP 99/60 11/02/20 09:43 Pulse Ox 96 11/02/20 09:43 - RESPIRATORY Respiratory Status: Respiratory Rate WNL, Airway Patent, O2 Saturation Stable - CARDIOVASCULAR CV Status: Pulse Rate WNL, Blood Pressure Stable - GASTROINTESTINAL GI Status: No Symptoms - PAIN Pain Score: 5 - POST OP HYDRATION Hydration Status: Adequate & Stable
[2020-11-02] MEDS: HYDROmorphone 1 MG/ML Syringe IVPUSH PRN ×2 (10:04→10:20)
--- NOTE | 2020-11-02 10:20 | PCM48HPAN ---
Post Anesthesia Note - EVALUATION WITHIN 48HRS OF ANESTHETIC Vital Signs in Normal Range: Yes Patient Participated in Evaluation: Yes Respiratory Function Stable: Yes Airway Patent: Yes Cardiovascular Function Stable: Yes Hydration Status Stable: Yes Pain Control Satisfactory: Yes Nausea and Vomiting Control Satisfactory: Yes Mental Status Recovered: Yes Vital Signs: Last Vital Signs Temp 98.6 F 11/02/20 09:43 Pulse 101 H 11/02/20 10:15 Resp 9 L 11/02/20 10:15 BP 95/51 L 11/02/20 10:15 Pulse Ox 98 11/02/20 10:15 - COMMENTS/OBSERVATIONS Free Text/Narrative:: Pt doing well post-op. VSS. No apparent anesthetic complications. Dr. Cade Ross
[2020-11-03 06:09] LABS: POTASSIUM,K 4.6 mmol/L (3.5-5.1)
[2020-11-03 08:01] VITALS: BP 107/59; PULSE 96
--- NOTE | 2020-11-03 08:33 | PCM.SURGPN ---
- General Info Date of Service: 11/03/20 POD#: 1 Functional Status: Reports: Pain Controlled - Review of Systems General: Reports: No Symptoms HEENT: Reports: No Symptoms Pulmonary: Reports: No Symptoms Cardiovascular: Reports: No Symptoms Gastrointestinal: Reports: No Symptoms Genitourinary: Reports: No Symptoms Musculoskeletal: Reports: No Symptoms Skin: Reports: No Symptoms Neurological: Reports: No Symptoms Psychiatric: Reports: No Symptoms - Patient Data Vitals - Most Recent: Last Vital Signs Temp 36.6 C 11/03/20 07:59 Pulse 96 11/03/20 07:59 Resp 16 11/03/20 07:59 BP 107/59 L 11/03/20 07:59 Pulse Ox 95 11/03/20 07:59 Weight - Most Recent: 115.212 kg I&O - Last 24 Hours: Intake & Output 11/02/20 11/03/20 11/03/20 22:59 06:59 14:59 Output Total 275 Balance -275 Lab Results Last 24 Hrs: Laboratory Results - last 24 hr 11/03/20 11/03/20 Range/Units 05:19 05:19 WBC 20.78 H (4.0-11.0) K/uL RBC 4.43 (4.30-5.90) M/uL Hgb 13.4 (12.0-16.0) g/dL Hct 40.7 (36.0-46.0) % MCV 91.9 (80.0-98.0) fL MCH 30.2 (27.0-32.0) pg MCHC 32.9 (31.0-37.0) g/dL RDW Std Deviation 45.8 (28.0-62.0) fl RDW Coeff of Kalpesh 14 (11.0-15.0) % Plt Count 452 H (150-400) K/uL MPV 9.20 (7.40-12.00) fL Neut % (Auto) 79.9 (48.0-80.0) % Lymph % (Auto) 14.4 L (16.0-40.0) % [place] % (Auto) 5.6 (0.0-15.0) % Eos % (Auto) 0.0 (0.0-7.0) % Baso % (Auto) 0.1 (0.0-1.5) % Neut # (Auto) 16.6 H (1.4-5.7) K/uL Lymph # (Auto) 3.0 H (0.6-2.4) K/uL [place] # (Auto) 1.2 H (0.0-0.8) K/uL Eos # (Auto) 0.0 (0.0-0.7) K/uL Baso # (Auto) 0.0 (0.0-0.1) K/uL Nucleated RBC % 0.0 /100WBC Nucleated RBCs # 0 K/uL Sodium 136 (136-145) mmol/L Potassium 4.6 (3.5-5.1) mmol/L Chloride 100 (98-107) mmol/L Carbon Dioxide 28.0 (21.0-32.0) mmol/L BUN 17 (7.0-18.0) mg/dL Creatinine 1.5 H (0.6-1.0) mg/dL Est Cr Clr Drug Dosing 47.78 mL/min Estimated GFR (MDRD) 37.6 ml/min Glucose 100 (74-106) mg/dL Calcium 8.5 (8.5-10.1) mg/dL Med Orders - Current: Current Medications Lactated Ringer's (Ringers, Lactated) 1,000 mls @ 125 mls/hr IV ASDIRECTED [facility] Last Admin: 11/02/20 12:28 Dose: 125 mls/hr Documented by: Ketorolac Tromethamine (Ketorolac 30 Mg/Ml Sdv) 30 mg IVPUSH Q6H PRN PRN Reason: Pain (severe 7-10) Stop: 11/07/20 09:28 Last Admin: 11/02/20 16:47 Dose: 30 mg Documented by: Morphine Sulfate (Morphine 4 Mg/Ml Syringe) 4 mg IVPUSH Q2H PRN PRN Reason: Pain (severe 7-10) Ondansetron HCl (Ondansetron 4 Mg/2 Ml Sdv) 4 mg IVPUSH Q6H PRN PRN Reason: Nausea/Vomiting Oxycodone/Acetaminophen (Acetaminophen/Oxycodone 325-5 Mg Tab) 1 tab PO Q4H PRN PRN Reason: Pain (moderate 4-6) Last Admin: 11/03/20 02:28 Dose: 1 tab Documented by: Oxycodone/Acetaminophen (Acetaminophen/Oxycodone 325-5 Mg Tab) 2 tab PO Q4H PRN PRN Reason: Pain (moderate 4-6) Promethazine HCl (Promethazine 25 Mg/Ml Sdv) 25 mg IM Q6H PRN PRN Reason: Nausea/Vomiting Discontinued Medications Albuterol (Albuterol 0.083% 2.5 Mg/3 Ml Neb Soln) 2.5 mg NEB ONETIME PRN PRN Reason: Wheezing Cefazolin Sodium (Cefazolin 1 Gm Vial) Confirm Administered Dose 2 gm .ROUTE .STK-[facility] ONE Stop: 11/02/20 08:02 Dexamethasone (Dexamethasone 4 Mg/Ml 5 Ml Mdv) Confirm Administered Dose 20 mg .ROUTE .STK-[facility] ONE Stop: 11/02/20 07:21 Dexmedetomidine HCl (Dexmedetomidine 200 Mcg/2 Ml Sdv) Confirm Administered Dose 200 mcg .ROUTE .[facility] ONE Stop: 11/02/20 07:21 Droperidol (Droperidol 5 Mg/2 Ml Sdv) 0.625 mg IVPUSH ONETIME PRN PRN Reason: Nausea/Vomiting Esmolol HCl (Esmolol 100 Mg/10 Ml Sdv) Confirm Administered Dose 100 mg .ROUTE .STK-MED ONE Stop: 11/02/20 08:10 Fentanyl (Fentanyl 250 Mcg/5 Ml Sdv) Confirm Administered Dose 250 mcg .ROUTE .STK-MED ONE Stop: 11/02/20 07:22 Fentanyl (Fentanyl 100 Mcg/2 Ml Sdv) 50 mcg IVPUSH Q5M PRN PRN Reason: Pain (mild 1-3) Fluorescein Sodium (Fluorescein 5 Ml Vial) Confirm Administered Dose 5 ml .ROUTE .STK-MED ONE Stop: 11/02/20 07:20 Glycopyrrolate (Glycopyrrolate 0.2 Mg/Ml Sdv) Confirm Administered Dose 0.2 mg .ROUTE .STK-MED ONE Stop: 11/02/20 07:21 Hydromorphone HCl (Hydromorphone 1 Mg/Ml Syringe) 1 mg IVPUSH Q10M PRN PRN Reason: Pain (moderate 4-6) Last Admin: 11/02/20 10:20 Dose: 1 mg Documented by: Hydromorphone HCl (Hydromorphone 2 Mg/Ml Syringe) Confirm Administered Dose 2 mg .ROUTE .STK-MED ONE Stop: 11/02/20 08:34 Lactated Ringer's (Ringers, Lactated) 1,000 mls @ 125 mls/hr IV ASDIRECTED ESTEPHANIE Last Admin: 11/02/20 07:06 Dose: 125 mls/hr Documented by: Acetaminophen (Ofirmev 1000 Mg/100 Ml) Confirm Administered Dose 100 mls @ as directed .ROUTE .[facility] ONE Stop: 11/02/20 07:19 Sodium Chloride (Normal Saline) Confirm Administered Dose 20 mls @ as directed .ROUTE .[facility] ONE Stop: 11/02/20 07:20 Ketamine HCl (Ketamine 500 Mg/10 Ml Mdv) Confirm Administered Dose 500 mg .ROUTE .STK-MED ONE Stop: 11/02/20 07:22 Ketorolac Tromethamine (Ketorolac 30 Mg/Ml Sdv) Confirm Administered Dose 30 mg .ROUTE .STK-MED ONE Stop: 11/02/20 07:21 Ketorolac Tromethamine (Ketorolac 30 Mg/Ml Sdv) 30 mg IVPUSH ONETIME ONE Stop: 11/02/20 09:29 Last Admin: 11/03/20 00:08 Dose: Not Given Documented by: Lidocaine (Lidocaine 2% 5 Ml Sdv) Confirm Administered Dose 5 ml .ROUTE .STK-MED ONE Stop: 11/02/20 07:21 Metoclopramide HCl (Metoclopramide 10 Mg/2 Ml Sdv) Confirm Administered Dose 10 mg .ROUTE .STK-MED ONE Stop: 11/02/20 07:21 Metoclopramide HCl (Metoclopramide 10 Mg/2 Ml Sdv) 10 mg IVPUSH ONETIME PRN PRN Reason: Nausea/Vomiting Miscellaneous Medication (Phenylephrine Hcl In 0.9% Nacl 1 Mg/10 Ml Syringe) C onfirm Administered Dose 1 mg .ROUTE .STK-MED ONE Stop: 11/02/20 08:35 Morphine Sulfate (Morphine 2 Mg/Ml Syringe) 2 mg IVPUSH Q10M PRN PRN Reason: Pain (severe 7-10) Naloxone HCl (Naloxone 0.4 Mg/Ml Syringe) 0.1 mg IVPUSH ASDIRECTED PRN PRN Reason: Respiratory Depression Octyl Cyanoacrylate (Octyl 2-Cyanoacrylate 1 Tube) Confirm Administered Dose 1 applic .ROUTE .STK-MED ONE Stop: 11/02/20 07:20 Ondansetron HCl (Ondansetron 4 Mg/2 Ml Sdv) Confirm Administered Dose 4 mg .ROUTE .STK-MED ONE Stop: 11/02/20 07:21 Ondansetron HCl (Ondansetron 4 Mg/2 Ml Sdv) 4 mg IVPUSH ONETIME PRN PRN Reason: Nausea/Vomiting Propofol (Propofol 200 Mg/20 Ml Sdv) Confirm Administered Dose 400 mg .ROUTE .STK-MED ONE Stop: 11/02/20 07:22 Rocuronium Enterprise (Rocuronium Enterprise 50 Mg/5 Ml Syringe) Confirm Administered Dose 50 mg .ROUTE .STK-MED ONE Stop: 11/02/20 07:21 Scopolamine (Scopolamine 1.5 Mg Transdermal Patch) Confirm Administered Dose 1.5 mg .ROUTE .STK-MED ONE Stop: 11/02/20 06:51 Last Admin: 11/02/20 07:06 Dose: 1.5 mg Documented by: Sugammadex Sodium (Sugammadex Sodium 200 Mg/2 Ml Vial) Confirm Administered Dose 200 mg .ROUTE .STK-MED ONE Stop: 11/02/20 08:35 - Exam Wound/Incisions: Healing Well General: Alert, Oriented HEENT: Pupils Equal Neck: Supple Lungs: Clear to Auscultation, Normal Respiratory Effort Cardiovascular: Regular Rate, Regular Rhythm GI/Abdominal Exam: Normal Bowel Sounds, Soft, Non-Tender, No Organomegaly, No Distention, No Abnormal Bruit, No Mass, Pelvis Stable Extremities: Normal Inspection, Normal Range of Motion, Non-Tender, No Pedal Edema, Normal Capillary Refill Skin: Warm, Dry, Intact Neurological: No New Focal Deficit Psy/Mental Status: Alert, Normal Affect, Normal Mood Sepsis Event Note - Focused Exam Vital Signs: Vital Signs Temp Pulse Resp BP Pulse Ox 11/03/20 07:59 36.6 C 96 16 107/59 L 95 11/03/20 04:01 37.1 C 93 18 100/55 L 94 L 11/03/20 00:03 36.9 C 100 18 106/55 L 92 L - Problem List Review Problem List Initiated/Reviewed/Updated: Yes - My Orders Last 24 Hours: Active Orders 24 hr Category Date Time Status Patient Status [ADT] Routine ADT 11/02/20 09:28 Active Antiembolic Devices [RC] PER UNIT ROUTINE Care 11/02/20 09:29 Active Blood Glucose Check, Bedside [RC] PRN Care 11/02/20 07:38 Active Notify Provider Vital Signs [RC] ASDIRECTED Care 11/02/20 07:38 Active Overnight Pulse Oximetry [RC] Click to Edit Care 11/02/20 07:38 Active Oxygen Therapy [RC] ASDIRECTED Care 11/02/20 09:28 Active RT Incentive Spirometry [RC] Q2HWA Care 11/02/20 09:28 Active Up ad Yuridia [RC] PER UNIT ROUTINE Care 11/02/20 09:28 Active Vital Signs [RC] Q5M Care 11/02/20 07:38 Active Regular Diet [DIET] Diet 11/02/20 Lunch Active Acetaminophen/oxyCODONE [Percocet 325-5 MG] Med 11/02/20 09:28 Active 1 tab PO Q4H PRN Acetaminophen/oxyCODONE [Percocet 325-5 MG] Med 11/02/20 09:28 Active 2 tab PO Q4H PRN Ketorolac [Toradol] Med 11/02/20 09:28 Active 30 mg IVPUSH Q6H PRN Lactated Ringers [Ringers, Lactated] 1,000 ml Med 11/02/20 12:15 Active IV ASDIRECTED Morphine Med 11/02/20 09:28 Active 4 mg IVPUSH Q2H PRN Ondansetron [Zofran] Med 11/02/20 09:28 Active 4 mg IVPUSH Q6H PRN Promethazine [Phenergan] Med 11/02/20 09:28 Active 25 mg IM Q6H PRN Peripheral IV Discontinue [OM.PC] Routine Oth 11/02/20 09:28 Ordered Pulse Oximetry Continuous Monitoring [OM.PC] Routine Oth 11/02/20 07:38 Ordered Sequential Compression Device [OM.PC] Per Unit Routine Oth 11/02/20 09:28 Ordered Resuscitation Status Routine Resus Stat 11/02/20 09:28 Ordered Medication Orders Lactated Ringer's (Ringers, Lactated) 1,000 mls @ 125 mls/hr IV ASDIRECTED [facility]EPH[facility]IE Last Admin: 11/02/20 12:28 Dose: 125 mls/hr Documented by: [id number] Ketorolac Tromethamine (Ketorolac 30 Mg/Ml Sdv) 30 mg IVPUSH Q6H PRN PRN Reason: Pain (severe 7-10) Stop: 11/07/20 09:28 Last Admin: 11/02/20 16:47 Dose: 30 mg Documented by: [id number] Morphine Sulfate (Morphine 4 Mg/Ml Syringe) 4 mg IVPUSH Q2H PRN PRN Reason: Pain (severe 7-10) Ondansetron HCl (Ondansetron 4 Mg/2 Ml Sdv) 4 mg IVPUSH Q6H PRN PRN Reason: Nausea/Vomiting Oxycodone/Acetaminophen (Acetaminophen/Oxycodone 325-5 Mg Tab) 1 tab PO Q4H PRN PRN Reason: Pain (moderate 4-6) Last Admin: 11/03/20 02:28 Dose: 1 tab Documented by: FRANCISCO Oxycodone/Acetaminophen (Acetaminophen/Oxycodone 325-5 Mg Tab) 2 tab PO Q4H PRN PRN Reason: Pain (moderate 4-6) Promethazine HCl (Promethazine 25 Mg/Ml Sdv) 25 mg IM Q6H PRN PRN Reason: Nausea/Vomiting - Assessment Assessment (Free Text/Narrative):: Post laparoscopic hysterectomy was operative day #1 patient is doing well no vaginal bleeding on regular diet passing gas and voiding without any problem. Vital signs stable is ambulatory - Plan Plan (Free Text/Narrative):: Discharged home today the post hysterectomy instruction is given to the patient there is no restriction on her diet the patient is given the option of Narco 5/325 for postoperative pain the patient is have an appointment to come to the office one week from the day of her discharge.
--- NOTE | 2020-11-03 10:25 | OR ---
SURGEON: Nick Denise MD DATE OF PROCEDURE: 11/02/2020 PREOPERATIVE DIAGNOSIS: Dysmenorrhea, menometrorrhagia. POSTOPERATIVE DIAGNOSIS: Dysmenorrhea, menometrorrhagia. OPERATIONS PERFORMED: Total laparoscopic hysterectomy, right salpingectomy, preserving both ovaries and the left tube not removed. INDICATIONS OF SURGERY: [place] refer to the admit note. PROCEDURE IN DETAIL: The patient was brought to the OR, properly identified, and after adequate level of anesthesia, the patient was placed in lithotomy position with an access to the abdomen and the vagina. Mary catheter was placed in the bladder for drainage and then stab wound done beneath the umbilicus. The Veress needle was placed in the peritoneal cavity and that cavity insufflated with adequate amount of carbon dioxide, and then utilizing the Visiport technique, the central trocar beneath the umbilicus was placed. Then 10/12 trocar was placed in the left iliac fossa and 5 mm trocar in the right iliac fossa. The patient was placed in Trendelenburg. Inspection of the pelvis and then the superior pedicle on both sides is coagulated and then transected using the Enrique Harmonic scalpel. Both ovaries preserved. The right tube was included with the specimen. The left tube was difficult to remove because the patient does have diverticulosis and maybe she had a previous diverticulitis. There was adhesion around the left tube and ovary. Once the superior pedicle coagulated and transected, then the round ligament on both sides coagulated and transected using the Enrique Harmonic scalpel and then the anterior leaf of the broad ligament dissected downward medially, pushing the bladder completely away from the operative field. The uterine vessel was coagulated on both sides utilizing the Enrique Harmonic scalpel at the level of the manipulator and then the vagina is entered using the Enrique Harmonic scalpel in a circular fashion, detaching the cervix from its attachment to the vagina. Next, the vaginal cuff was closed with 3-0 PDS interrupted suture. While we were doing that, we asked the Anesthesia personnel to give the patient fluorescein and then after that, the abdomen is deflated and Mary catheter removed. Cystoscopy was performed. The bladder was intact. Both ureteric orifices were seen with the dye coming from both of them. Thus, the patency of both of her ureters verified. Satisfied with these findings, the procedure was ended after closing the laparoscopic incision in layers. Instrument and sponge count was correct. The patient tolerated the procedure well, went to recovery room in stable general condition. ARCENIO MCDANIELS /[id number]
== END 2020-11-03 09:33 | disposition home or self-care (01) ==
LOC: MW.SDS 06:32 → MW.OB 11:00 → MW.SDS 11-03 09:33
PROVIDERS: ATTEND Obstetrics & Gynecology
DX: N87.9 Dysplasia of cervix uteri, unspecified (principal); N80.0 Endometriosis of uterus; N92.1 Excessive and frequent menstruation with irregular cycle; I12.9 Hypertensive chronic kidney disease with stage 1 through stage 4 chronic kidney disease, or unspecified chronic kidney disease; N18.9 Chronic kidney disease, unspecified; J45.909 Unspecified asthma, uncomplicated; F17.210 Nicotine dependence, cigarettes, uncomplicated; E66.9 Obesity, unspecified; Z68.39 Body mass index [BMI] 39.0-39.9, adult
CPT/HCPCS: 36415; 58571; 80048; 81025; 85014; 85018; 85025; 86850; 86900; 86901; A9270; J0131; J0690; J1100; J1170; J1885; J2370; J2704; J3010; J3490; J7030; J7120; 00840; J2405; J2765

== ENCOUNTER 2020-12-25 06:31 | Emergency (ER) | payer MEDICARE, MEDICAID ==
[2020-12-25] MEDS ORDERED: Sodium Chloride 0.9% 1,000 ML IV ONE (07:04)
[2020-12-25] MEDS ORDERED: Ketorolac 15 MG/ML SDV IVPUSH STA (07:04)
[2020-12-25] MEDS ORDERED: Ondansetron 4 MG/2 ML SDV IVPUSH ONE (07:04)
--- NOTE | 2020-12-25 07:07 | EDM.PDOC ---
ED HPI GENERAL MEDICAL PROBLEM - General Chief Complaint: Abdominal Pain Stated Complaint: GALLBLADDER ATTACK, SEVERE PAIN Time Seen by Provider: 12/25/20 06:58 Source of Information: Reports: Patient History Limitations: Reports: No Limitations - History of Present Illness INITIAL COMMENTS - FREE TEXT/NARRATIVE: 45-year-old female past medical history hemorrhoids, irritable bowel syndrome, bipolar disorder presents with concern for gallbladder pain. Patient notes that for the last month or so she has had remittent abdominal pain mostly in the left and right upper quadrant abdomen. She has been working this up as an outpatient. She had a CT scan, upper and lower endoscopy/colonoscopy. She was scheduled for an ultrasound but she was unable to make her appointment. She noted the pain worsened last night primarily in the left upper quadrant abdomen. The pain went away on the way to the hospital. She notes that she has had diarrhea for the last month. Currently she does not have any pain and declines lab work or medications but she would like to get an ultrasound since she missed her scheduled appointment. - Related Data Allergies Allergy/AdvReac Type Severity Reaction Status Date / Time ciprofloxacin [From Cipro] Allergy Abdominal Verified 12/25/20 07:10 Cramps Home Meds: Home Meds ARIPiprazole [Abilify] 10 mg PO DAILY 10/09/14 [History] Albuterol [Proair HFA] 1 - 2 puff INH Q4H PRN 05/14/17 [History] atoMOXetine [Strattera] 140 mg PO DAILY 05/14/17 [History] LORazepam [Ativan] 0.5 mg PO ASDIRECTED PRN 10/03/20 [History] Lisinopril/Hydrochlorothiazide [Lisinopril-Hctz 20-25 mg Tab] 1 tab PO DAILY 10/03/20 [History] Omeprazole Magnesium [Prilosec Otc] 20 mg PO DAILY 10/03/20 [History] Past Medical History - Past Health History Medical/Surgical History: Denies Medical/Surgical History HEENT History: Reports: Sinusitis Other HEENT History: wears glasses/contacts Cardiovascular History: Reports: Hypertension Respiratory History: Reports: Asthma Other Respiratory History: uses inhaler weekly Gastrointestinal History: Reports: Chronic Constipation, Colon Polyp, GERD, PUD Genitourinary History: Reports: None PAINTER SET History: Reports: 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, Musculoskeletal History: Reports: Other (See Below) Other Musculoskeletal History: states "I think I have fibromalgia" not diagnosed Neurological History: Reports: None Psychiatric History: Reports: Bipolar Endocrine/Metabolic History: Reports: Obesity/BMI 30+ Hematologic History: Reports: None Immunologic History: Reports: None Oncologic (Cancer) History: Reports: None Dermatologic History: Reports: Other (See Below) Other Dermatologic History: dermatagraphism - Infectious Disease History Infectious Disease History: Reports: Chicken Pox - Past Surgical History Head Surgeries/Procedures: Reports: None HEENT Surgical History: Reports: Tonsillectomy Cardiovascular Surgical History: Reports: None Respiratory Surgical History: Reports: None GI Surgical History: Reports: Colonoscopy, Other (See Below) Other GI Surgeries/Procedures: benign tumor removed from abdomen Female Surgical History: Reports: Endometrial Ablation, LEEP, Other (See Below) Other Female Surgeries/Procedures: laparoscopy for removal of endometriosis Endocrine Surgical History: Reports: None Neurological Surgical History: Reports: None Musculoskeletal Surgical History: Reports: None Oncologic Surgical History: Reports: None Dermatological Surgical History: Reports: None Social & Family History - Family History Family Medical History: No Pertinent Family History - Caffeine Use Caffeine Use: Reports: None - Living Situation & Occupation Living situation: Reports: Single Occupation: Employed ED ROS GENERAL - Review of Systems Review Of Systems: Comprehensive ROS is negative, except as noted in HPI. ED EXAM, GENERAL - Physical Exam Exam: See Below Exam Limited By: No Limitations General Appearance: Alert, WD/WN, No Apparent Distress Ears: Hearing Grossly Normal Throat/Mouth: Normal Voice, No Airway Compromise Head: Atraumatic, Normocephalic Neck: Normal Inspection Respiratory/Chest: No Respiratory Distress, Lungs Clear, Normal Breath Sounds, No Accessory Muscle Use Cardiovascular: Normal Peripheral Pulses, Regular Rate, Rhythm GI/Abdominal: Soft, Non-Tender Extremities: Normal Inspection Neurological: Alert, Normal Cognition, Normal Gait Psychiatric: Normal Affect, Normal Mood Skin Exam: Warm, Dry, Intact, Normal Color Course - Vital Signs Last Recorded V/S: Last Vital Signs Temp 97.0 F 12/25/20 07:07 Pulse 118 H 12/25/20 07:07 Resp 18 12/25/20 07:07 BP 125/89 12/25/20 07:07 Pulse Ox 97 12/25/20 07:07 - Orders/Labs/Meds Orders: Active Orders 24 hr Category Date Time Status Abdomen Ltd [US] Stat Exams 12/25/20 07:04 Taken Meds: Medications Discontinued Medications Generic Name Dose Route Start Last Admin Trade Name Kerwin PRN Reason Stop Dose Admin Sodium Chloride 1,000 mls @ 999 mls/hr 12/25/20 07:04 12/25/20 07:51 Normal Saline IV 12/25/20 08:04 Not Given .Bolus ONE Ketorolac Tromethamine 15 mg 12/25/20 07:04 12/25/20 07:51 Ketorolac 15 Mg/Ml Sdv IVPUSH 12/25/20 07:05 Not Given STAT STA Ondansetron HCl 4 mg 12/25/20 07:04 12/25/20 07:51 Ondansetron 4 Mg/2 Ml Sdv IVPUSH 12/25/20 07:05 Not Given ONETIME ONE - Re-Assessments/Exams Free Text/Narrative Re-Assessment/Exam: 12/25/20 07:08 I advised that we should get labs, however, patient declines. This is reasonable considering she has no pain currently. We will get the ultrasound and go from there. 12/25/20 10:10 Patient is requesting discharge. Ultrasonography is not read. I have a low suspicion for serious disease and wet read is unremarkable. Departure - Departure Time of Disposition: 10:10 Disposition: Home, Self-Care 01 Condition: Good Clinical Impression: Abdominal pain Qualifiers: Abdominal location: generalized Qualified Code(s): R10.84 - Generalized abdominal pain - Discharge Information Instructions: Abdominal Pain, Adult Referrals: Kristopher Zepeda MD [Primary Care Provider] - Forms: ED Department Discharge Additional Instructions: Please follow-up with your physician for ultrasonography results. The following information is given to patients seen in the emergency department who are being discharged to home. This information is to outline your options for follow-up care. We provide all patients seen in our emergency department with a follow-up referral. The need for follow-up, as well as the timing and circumstances, are variable depending upon the specifics of your emergency department visit. If you don't have a primary care physician on staff, we will provide you with a referral. We always advise you to contact your personal physician following an emergency department visit to inform them of the circumstance of the visit and for follow-up with them and/or the need for any referrals to a consulting specialist. The emergency department will also refer you to a specialist when appropriate. This referral assures that you have the opportunity for follow-up care with a specialist. All of these measure are taken in an effort to provide you with optimal care, which includes your follow-up. Under all circumstances we always encourage you to contact your private physician who remains a resource for coordinating your care. When calling for follow-up care, please make the office aware that this follow-up is from your recent emergency room visit. If for any reason you are refused follow-up, please contact the [facility] Department at and asked to speak to the emergency department charge nurse. Please follow up with your primary care physician. If you do not have a primary care physician, see below: [facility] [address] [place] [address] [id number] [facility] [address] [place] [id number] [facility] [address] [place] [id number] Sepsis Event Note (ED) - Focused Exam Vital Signs: Vital Signs Temp Pulse Resp BP Pulse Ox 12/25/20 07:07 97.0 F 118 H 18 125/89 97 - My Orders Last 24 Hours: My Active Orders 12/25/20 07:04 Abdomen Ltd [US] Stat - Assessment/Plan Last 24 Hours: My Active Orders 12/25/20 07:04 Abdomen Ltd [US] Stat
[2020-12-25 07:10] VITALS: BP 125/89; PULSE 118
--- NOTE | 2020-12-25 10:30 | US ---
INDICATION: Right upper quadrant abdominal pain. COMPARISON: CT abdomen and pelvis with intravenous contrast March 09, 2020. TECHNIQUE: Ultrasound examination of the right upper quadrant of the abdomen. FINDINGS: The liver is measuring 15.7 cm in the maximum vertical dimension. Mild diffuse increase in echogenicity of the liver; rule out fatty infiltration. No evidence of cholelithiasis. Nondilated common bile duct measuring 5.8 mm in diameter. No pericholecystic fluid collections. Negative sonographic Vásquez`s sign. Right kidney is measuring 9.5 cm in the maximum vertical dimension without any obstructive uropathy or perinephric pathology. Sub optimal visualization of the pancreas secondary to increased bowel gas in the upper abdomen. IMPRESSION: 1. Fatty liver. 2. Sub optimal visualization of the pancreas. 3. Negative ultrasound examination of the right upper quadrant of the abdomen otherwise. Dictated by Roosevelt Armendariz MD @ 12/25/2020 10:29:52 AM (Electronically Signed)
== END 2020-12-25 10:23 | disposition home or self-care (01) ==
LOC: MW.ED 06:31
DX: R10.84 Generalized abdominal pain (principal); I10 Essential (primary) hypertension; J45.909 Unspecified asthma, uncomplicated; K21.9 Gastro-esophageal reflux disease without esophagitis; E66.9 Obesity, unspecified; Z68.38 Body mass index [BMI] 38.0-38.9, adult; Z88.1 Allergy status to other antibiotic agents; Z79.899 Other long term (current) drug therapy
CPT/HCPCS: 76705; 76705-26; 99284-25

== ENCOUNTER 2021-06-27 09:01 | Emergency (ER) | payer MEDICAID, MEDICARE ==
[2021-06-27] MEDS ORDERED: Sodium Chloride 0.9% 2.5 ML Syringe FLUSH PRN (09:03)
[2021-06-27] MEDS ORDERED: LORazepam 2 MG/ML SDV IVPUSH ONE (09:03)
[2021-06-27] MEDS ORDERED: diphenhydrAMINE 50 MG/ML SDV IVPUSH ONE (09:03)
[2021-06-27] MEDS: Haloperidol Lactate 5 MG/ML SDV IM ONE ×2 (09:16→10:29)
[2021-06-27 09:54] LABS: ACETAMINOPHEN <2.0 ug/mL
[2021-06-27 09:58] LABS: BLOOD UREA NITROGEN,BUN 11 mg/dL (7.0-18.0); CARBON DIOXIDE,CO2 26.6 mmol/L (21.0-32.0); CHLORIDE,CL 99 mmol/L (98-107); GLUCOSE RANDOM 98 mg/dL (74-106); POTASSIUM,K 3.4 mmol/L (3.5-5.1); SODIUM,NA 133 mmol/L (136-145)
[2021-06-27 12:36] VITALS: BP 128/93; PULSE 111
== END 2021-06-27 12:50 | disposition home or self-care (01) ==
LOC: MW.ED 09:01
DX: F41.9 Anxiety disorder, unspecified (principal); K21.9 Gastro-esophageal reflux disease without esophagitis; I10 Essential (primary) hypertension; F15.90 Other stimulant use, unspecified, uncomplicated; E66.9 Obesity, unspecified; Z88.1 Allergy status to other antibiotic agents; Z79.899 Other long term (current) drug therapy; Z20.822 Contact with and (suspected) exposure to COVID-19; Z68.41 Body mass index [BMI] 40.0-44.9, adult
CPT/HCPCS: 36415; 80053; 80143; 80179; 80305; 80307; 81003; 81025; 84443; 84484; 85025; 93005; 96374; 96375; 99285; J1200; J2060; U0002; 93010; J1630

== ENCOUNTER 2022-09-05 21:19 | Emergency (ER) | payer MEDICARE, OTHER ==
[2022-09-05 22:05] LABS: BASOPHILS ABSOLUTE AUTO 0.1 K/uL (0.0-0.1); BASOPHILS PERCENT AUTO 0.4 % (0.0-1.5); EOSINOPHILS ABSOLUTE AUTO 0.2 K/uL (0.0-0.7); EOSINOPHILS PERCENT AUTO 1.3 % (0.0-7.0); HEMATOCRIT 45.6 % (36.0-46.0); HEMOGLOBIN 16.1 g/dL (12.0-16.0); LYMPHOCYTES ABSOLUTE AUTO 4.9 K/uL (0.6-2.4); LYMPHOCYTES PERCENT AUTO 30.7 % (16.0-40.0); MEAN CORPUSCULAR HEMOGLOBIN 31.8 pg (27.0-32.0); MEAN CORPUSCULAR HGB CONC 35.3 g/dL (31.0-37.0); MEAN CORPUSCULAR VOLUME 90.1 fL (80.0-98.0); MONOCYTES PERCENT AUTO 6.2 % (0.0-15.0); NEUTROPHILS ABSOLUTE AUTO 9.9 K/uL (1.4-5.7); NEUTROPHILS PERCENT AUTO 61.4 % (48.0-80.0); NRBC ABSOLUTE 0 K/uL; PLATELET COUNT,PLT 472 K/uL (150-400); RED BLOOD CELL COUNT 5.06 M/uL (4.30-5.90); WHITE BLOOD CELL COUNT,WBC 16.07 K/uL (4.0-11.0)
[2022-09-05] MEDS ORDERED: LORazepam 0.5 MG Tab PO ONE (22:27)
[2022-09-05 22:35] LABS: APPEARANCE,URINE CLOUDY; BILIRUBIN,URINE NEGATIVE (NEGATIVE); COLOR,URINE YELLOW; GLUCOSE,URINE NEGATIVE (NEGATIVE); KETONES,URINE NEGATIVE (NEGATIVE); LEUKOCYTE ESTERASE,URINE NEGATIVE (NEGATIVE); NITRITE,URINE NEGATIVE (NEGATIVE); OCCULT BLOOD,URINE NEGATIVE (NEGATIVE); PROTEIN,URINE NEGATIVE (NEGATIVE); UROBILINOGEN,URINE 0.2 EU/dL (<2.0)
[2022-09-05 22:45] LABS: AMPHETAMINES SCREEN, URINE PRESUMPTIVE POSITIVE (CUTOFF=500); BARBITURATE SCREEN,URINE NEGATIVE (CUTOFF=200); BENZODIAZEPINES SCREEN,URINE PRESUMPTIVE POSITIVE (CUTOFF=150); BUPRENORPHINE SCREEN,URINE NEGATIVE (CUTOFF=10); METHADONE SCREEN, URINE NEGATIVE (CUTOFF=200); METHAMPHETAMINES SCREEN, URINE PRESUMPTIVE POSITIVE (CUTOFF=500); OXYCODONE SCREEN,URINE NEGATIVE (CUT0FF=100); PCP SCREEN,URINE NEGATIVE (CUTOFF=25); PROPOXYPHENE SCREEN,URINE NEGATIVE (CUTOFF=300); THC SCREEN,URINE 20 NG/ML PRESUMPTIVE POSITIVE (CUTOFF=50)
[2022-09-05 22:56] LABS: A/G RATIO 0.9 (0.9-1.6); ACETAMINOPHEN <2.0 ug/mL; ALANINE AMINOTRANSFERASE,ALT 33 IU/L (14-63); ALBUMIN 3.5 g/dL (3.4-5.0); ALKALINE PHOSPHATASE 126 U/L (46-116); ASPARTATE AMNIOTRANSFERASE,AST 18 IU/L (15-37); BILIRUBIN TOTAL 0.4 mg/dL (0.2-1.0); BLOOD UREA NITROGEN,BUN 15 mg/dL (7.0-18.0); CARBON DIOXIDE,CO2 25.3 mmol/L (21.0-32.0); CHLORIDE,CL 100 mmol/L (98-107); CREATININE 1.6 mg/dL (0.6-1.0); EST CRCL DRUG DOSING (CG) 43.85 mL/min; GLUCOSE RANDOM 93 mg/dL (74-106); POTASSIUM,K 3.7 mmol/L (3.5-5.1); PROTEIN TOTAL,TP 7.6 g/dL (6.4-8.2); SALICYLATE 4.8 mg/dL (0.0-20.0); SODIUM,NA 137 mmol/L (136-145); TSH ULTRASENSITIVE 2.16 uIU/mL (0.36-3.74)
[2022-09-05 22:59] LABS: ESTIMATED GFR 40 mL/min (>60); ETHANOL BLOOD MEDICAL < 3.0 mg/dL
[2022-09-05] MEDS ORDERED: Nicotine 14 MG/24 Hr Patch TRDERM STA (23:40)
[2022-09-06 08:04] VITALS: BP 106/83; PULSE 124
[2022-09-06] MEDS ORDERED: Ziprasidone HCl 20 MG Cap PO SCH (21:00)
== END 2022-09-06 08:06 | disposition home or self-care (01) ==
LOC: MW.ED 21:19
DX: R45.851 Suicidal ideations (principal); I10 Essential (primary) hypertension; J45.909 Unspecified asthma, uncomplicated; K21.9 Gastro-esophageal reflux disease without esophagitis; E66.9 Obesity, unspecified; Z68.38 Body mass index [BMI] 38.0-38.9, adult; Z88.1 Allergy status to other antibiotic agents; Z79.899 Other long term (current) drug therapy; Z20.822 Contact with and (suspected) exposure to COVID-19
CPT/HCPCS: 36415; 80053; 80143; 80179; 80305; 80307; 81003; 84443; 84703; 85025; 93005; 99285; A9270; U0002; 93010; 99284

== ENCOUNTER 2022-12-25 21:37 | Emergency (ER) | payer MEDICAID, MEDICARE, OTHER ==
[2022-12-25] MEDS ORDERED: Piperacillin/Tazobactam 3.375 GM in Sodium Chloride 0.9% 100 ML IV STA (21:54)
[2022-12-25 22:10] LABS: HEMATOCRIT 45.1 % (37.0-47.0); HEMOGLOBIN 15.2 g/dL (12.0-16.0); MEAN CORPUSCULAR HEMOGLOBIN 30.7 pg (28.0-32.0); MEAN CORPUSCULAR HGB CONC 33.7 g/dL (32.0-36.0); MEAN CORPUSCULAR VOLUME 91.1 fL (83.0-99.0); MEAN PLATELET VOLUME 9.1 fL (9.4-12.3); PLATELET COUNT,PLT 460 K/uL (150-400); RED BLOOD CELL COUNT 4.95 M/uL (4.10-5.30); WHITE BLOOD CELL COUNT,WBC 18.27 K/uL (3.9-11.3)
[2022-12-25] MEDS ORDERED: Norepinephrine Bit/D5W Premix 250 ML IV SCH (22:15)
[2022-12-25] MEDS ORDERED: Vancomycin 2 GM in Sodium Chloride 0.9% 500 ML IV ONE (22:30)
[2022-12-25 22:37] LABS: EOSINOPHILS ABSOLUTE MAN 0.2 (0.0-0.7); EOSINOPHILS PERCENT MAN 1 % (0.0-7.0); LYMPHOCYTES ABSOLUTE MAN 4.4 (0.6-2.4); LYMPHOCYTES PERCENT MAN 24 % (16.0-40.0); MONOCYTES PERCENT MAN 11 % (0.0-15.0); SEG NEUTROPHILS ABSOLUTE MAN 11.7 (1.4-5.7); SEG NEUTROPHILS PERCENT MAN 64 % (48.0-80.0)
[2022-12-25 22:40] LABS: LACTIC ACID 1.3 mmol/L (0.4-2.0)
[2022-12-25] MEDS ORDERED: VANCOmycin 2 GM/400 ML 2 GM in Premix Bag 1 BAG IV ONE (22:45)
[2022-12-25 22:48] LABS: A/G RATIO 0.9 (0.9-1.6); ACETAMINOPHEN <2.0 ug/mL; ALANINE AMINOTRANSFERASE,ALT 39 IU/L (14-63); ALBUMIN 3.7 g/dL (3.4-5.0); ALKALINE PHOSPHATASE 111 U/L (46-116); ASPARTATE AMNIOTRANSFERASE,AST 22 IU/L (15-37); BILIRUBIN TOTAL 0.3 mg/dL (0.2-1.0); BLOOD UREA NITROGEN,BUN 46 mg/dL (7.0-18.0); CALCIUM 9.5 mg/dL (8.5-10.1); CARBON DIOXIDE,CO2 24.8 mmol/L (21.0-32.0); CHLORIDE,CL 96 mmol/L (98-107); CREATININE 6.5 mg/dL (0.6-1.0); EST CRCL DRUG DOSING (CG) 10.68 mL/min; GLUCOSE RANDOM 82 mg/dL (74-106); LIPASE 123 U/L (16-77); MAGNESIUM 1.6 mg/dL (1.8-2.4); PROTEIN TOTAL,TP 7.9 g/dL (6.4-8.2); SALICYLATE 5.6 mg/dL (0.0-20.0); SODIUM,NA 136 mmol/L (136-145); TSH ULTRASENSITIVE 3.01 uIU/mL (0.36-3.74)
[2022-12-25 22:50] LABS: ESTIMATED GFR 7 mL/min (>60); ETHANOL BLOOD MEDICAL < 3.0 mg/dL
[2022-12-25] MEDS ORDERED: Ketamine 500 mg/10 ML MDV IV ONE (23:00)
[2022-12-25] MEDS ORDERED: Lactated Ringers 1,000 ML IV SCH (23:00)
[2022-12-25] MEDS ORDERED: Lactated Ringers 1,000 ML IV ONE ×2 (23:00)
[2022-12-25] MEDS ORDERED: Sodium Chloride 0.9% 1,000 ML IV ONE (23:00)
[2022-12-25] MEDS ORDERED: Rocuronium 50 MG/5 ML Vial IV STA (23:00)
[2022-12-25] MEDS ORDERED: fentaNYL/Normal Saline 2,500 MCG in Premix Bag 1 BAG IV PRN (23:01)
[2022-12-25] MEDS ORDERED: Midazolam HCl In 0.9 % NaCl/Pf 100 ML IV SCH (23:01)
[2022-12-25] MEDS ORDERED: Magnesium Sulfate/Water 2 GM in Premix Bag 1 BAG IV ONE (23:06)
[2022-12-25 23:08] LABS: CORONAVIRUS COVID-19 NAA NEGATIVE (NEGATIVE); INFLUENZA A NAA NEGATIVE (NEGATIVE); INFLUENZA B NAA NEGATIVE (NEGATIVE); RESPIRATORY SYNCYTIAL VIR NAA NEGATIVE (NEGATIVE)
[2022-12-25] MEDS ORDERED: fentaNYL 100 MCG/2 ML SDV ONE ×2 (23:27→23:38)
[2022-12-25] MEDS ORDERED: Midazolam 5 MG/ML SDV IVPUSH ONE (23:31)
[2022-12-25] MEDS: Midazolam 5 MG/ML SDV ONE (23:31)
[2022-12-25] MEDS ORDERED: fentaNYL 100 MCG/2 ML SDV IVPUSH ONE ×2 (23:40)
[2022-12-25 23:49] LABS: APPEARANCE,URINE CLEAR; BILIRUBIN,URINE NEGATIVE (NEGATIVE); COLOR,URINE YELLOW; GLUCOSE,URINE NEGATIVE (NEGATIVE); KETONES,URINE NEGATIVE (NEGATIVE); LEUKOCYTE ESTERASE,URINE NEGATIVE (NEGATIVE); NITRITE,URINE NEGATIVE (NEGATIVE); OCCULT BLOOD,URINE SMALL (NEGATIVE); PROTEIN,URINE NEGATIVE (NEGATIVE); UROBILINOGEN,URINE 0.2 EU/dL (<2.0)
[2022-12-25] MEDS ORDERED: Albuterol 0.083% 2.5 MG/3 ML Neb Soln ONE (23:54)
[2022-12-25 23:59] LABS: BACTERIA,URINE FEW (NEGATIVE); EPITHELIAL CELLS,URINE FEW (NONE-FEW); MUCUS,URINE LIGHT (NONE-MOD); WBC,URINE 0-2 (0-5/HPF)
[2022-12-26] MEDS ORDERED: Albuterol 0.083% 2.5 MG/3 ML Neb Soln NEB ONE
[2022-12-26 00:04] LABS: AMPHETAMINES SCREEN, URINE PRESUMPTIVE POSITIVE (CUTOFF=500); BARBITURATE SCREEN,URINE NEGATIVE (CUTOFF=200); BENZODIAZEPINES SCREEN,URINE NEGATIVE (CUTOFF=150); BUPRENORPHINE SCREEN,URINE NEGATIVE (CUTOFF=10); METHADONE SCREEN, URINE NEGATIVE (CUTOFF=200); METHAMPHETAMINES SCREEN, URINE PRESUMPTIVE POSITIVE (CUTOFF=500); OXYCODONE SCREEN,URINE NEGATIVE (CUT0FF=100); PCP SCREEN,URINE NEGATIVE (CUTOFF=25); PROPOXYPHENE SCREEN,URINE NEGATIVE (CUTOFF=300); THC SCREEN,URINE 20 NG/ML NEGATIVE (CUTOFF=50)
[2022-12-26] MEDS: Midazolam 5 MG/ML SDV ONE (00:11)
[2022-12-26] MEDS ORDERED: Lactated Ringers 1,000 ML IV SCH (00:30)
[2022-12-26] MEDS ORDERED: fentaNYL 100 MCG/2 ML SDV IVPUSH STA (00:32)
[2022-12-26] MEDS ORDERED: Midazolam 5 MG/ML SDV ONE ×2 (00:48→01:34)
[2022-12-26] MEDS ORDERED: fentaNYL 100 MCG/2 ML SDV ONE (00:49)
[2022-12-26] MEDS ORDERED: fentaNYL 100 MCG/2 ML SDV IVPUSH ONE (00:53)
[2022-12-26] MEDS ORDERED: Midazolam 5 MG/ML SDV IVPUSH ONE ×2 (00:54→01:42)
[2022-12-26 00:55] LABS: BASE EXCESS VENOUS -2.3 (-2.0-3.0); PH,VENOUS 7.3 (7.31-7.41)
[2022-12-26] MEDS ORDERED: propofoL 100 ML ONE (01:05)
[2022-12-26] MEDS ORDERED: propofoL 100 ML IV SCH (01:15)
[2022-12-26 01:33] LABS: BASE EXCESS VENOUS -4.6 (-2.0-3.0); PH,VENOUS 7.27 (7.31-7.41)
[2022-12-26 04:33] VITALS: BP 122/70; PULSE 131
== END 2022-12-26 03:15 ==
LOC: MW.ED 21:37
DX: A41.9 Sepsis, unspecified organism (principal); R65.21 Severe sepsis with septic shock; I10 Essential (primary) hypertension; J45.909 Unspecified asthma, uncomplicated; Z86.16 Personal history of COVID-19; Z88.1 Allergy status to other antibiotic agents; Z79.899 Other long term (current) drug therapy; Z20.822 Contact with and (suspected) exposure to COVID-19
CPT/HCPCS: 0241U; 31500; 36415; 36556; 43752; 71045; 80053; 80143; 80179; 80305; 80307; 81001; 82803; 83605; 83690; 83735; 83880; 84443; 84484; 84703; 85025; 86850; 86900; 86901; 87040; 93005; 94640; 96365; 96366; 96368; 96376; 99291; J2250; J2251; J2543; J2704; J3010; J3370; J3475; J3490; J7030; J7120; 93010; 99292; J7620-GY

== ENCOUNTER 2024-08-01 02:43 | Emergency (ER) | payer MEDICARE, MEDICAID ==
[2024-08-01] MEDS ORDERED: Sodium Chloride 0.9% 2.5 ML Syringe FLUSH PRN (02:58)
[2024-08-01] MEDS ORDERED: Sodium Chloride 0.9% 10 ML Syringe FLUSH PRN (02:58)
[2024-08-01] MEDS ORDERED: Sodium Chloride 0.9% 20 ML SDV IV PRN (02:58)
[2024-08-01 03:03] LABS: BASOPHILS ABSOLUTE AUTO 0.08 K/uL (0.00-0.20); BASOPHILS PERCENT AUTO 0.8 % (0.0-1.0); EOSINOPHILS ABSOLUTE AUTO 0.19 K/uL (0.00-0.45); EOSINOPHILS PERCENT AUTO 1.8 % (0.0-6.0); HEMATOCRIT 44.1 % (37.0-47.0); HEMOGLOBIN 14.5 g/dL (12.0-16.0); IMMATURE GRAN ABSOLUTE AUTO 0.06 K/uL (0.00-0.05); IMMATURE GRAN PERCENT AUTO 0.6 % (0.0-0.4); LYMPHOCYTES ABSOLUTE AUTO 3.18 K/uL (1.00-4.80); LYMPHOCYTES PERCENT AUTO 30.2 % (24.0-44.0); MEAN CORPUSCULAR HGB CONC 32.9 g/dL (32.0-36.0); MEAN CORPUSCULAR VOLUME 91.3 fL (83.0-99.0); MEAN PLATELET VOLUME 8.8 fL (9.4-12.3); MONOCYTES ABSOLUTE AUTO 1.27 K/uL (0.00-0.80); MONOCYTES PERCENT AUTO 12.1 % (0.0-8.0); NEUTROPHILS ABSOLUTE AUTO 5.75 K/uL (1.80-7.70); NEUTROPHILS PERCENT AUTO 54.5 % (41.0-71.0); PLATELET COUNT,PLT 370 K/uL (150-400); RED BLOOD CELL COUNT 4.83 M/uL (4.10-5.30); WHITE BLOOD CELL COUNT,WBC 10.53 K/uL (3.9-11.3)
[2024-08-01 03:31] LABS: A/G RATIO 0.9 (0.9-1.6); ALBUMIN 3.4 g/dL (3.4-5.0); BILIRUBIN TOTAL 0.2 mg/dL (0.2-1.0); CALCIUM 8.9 mg/dL (8.5-10.1); CARBON DIOXIDE,CO2 26.7 mmol/L (21.0-32.0); CREATININE 2.4 mg/dL (0.6-1.0); EST CRCL DRUG DOSING (CG) 26.4 mL/min; POTASSIUM,K 3.9 mmol/L (3.5-5.1)
[2024-08-01] MEDS: Sodium Chloride 0.9% 1,000 ML IV ONE ×2 (03:44→04:49)
[2024-08-01 05:19] LABS: CREATINE KINASE,CK 57 U/L (26-308)
[2024-08-01 06:21] LABS: CALCIUM 8.2 mg/dL (8.5-10.1); CARBON DIOXIDE,CO2 25.5 mmol/L (21.0-32.0); CREATININE 2.3 mg/dL (0.6-1.0); EST CRCL DRUG DOSING (CG) 27.54 mL/min
[2024-08-01 06:39] LABS: APPEARANCE,URINE SLT CLOUDY; GLUCOSE,URINE NEGATIVE (NEGATIVE); KETONES,URINE TRACE mg/dL (NEGATIVE); LEUKOCYTE ESTERASE,URINE NEGATIVE (NEGATIVE); NITRITE,URINE NEGATIVE (NEGATIVE); OCCULT BLOOD,URINE NEGATIVE (NEGATIVE); PROTEIN,URINE 100 mg/dL (NEGATIVE); UROBILINOGEN,URINE 0.2 EU/dL (<2.0)
[2024-08-01 06:40] LABS: BILIRUBIN,URINE SMALL (NEGATIVE); COLOR,URINE DARK YELLOW
[2024-08-01 06:48] LABS: AMPHETAMINES SCREEN, URINE PRESUMPTIVE POSITIVE (CUTOFF=500); BARBITURATE SCREEN,URINE NEGATIVE (CUTOFF=200); BENZODIAZEPINES SCREEN,URINE PRESUMPTIVE POSITIVE (CUTOFF=150); BUPRENORPHINE SCREEN,URINE NEGATIVE (CUTOFF=10); METHADONE SCREEN, URINE NEGATIVE (CUTOFF=200); METHAMPHETAMINES SCREEN, URINE PRESUMPTIVE POSITIVE (CUTOFF=500); OXYCODONE SCREEN,URINE NEGATIVE (CUT0FF=100); PCP SCREEN,URINE NEGATIVE (CUTOFF=25); THC SCREEN,URINE 20 NG/ML NEGATIVE (CUTOFF=50)
[2024-08-01 06:58] LABS: BACTERIA,URINE 1+ (NEGATIVE); HYALINE CASTS,URINE 0-1 (0-2/LPF); MUCUS,URINE MODERATE (NONE-MOD); RBC,URINE 0-2 (0-2/HPF); SQUAMOUS EPITHELIAL CELLS,UR MODERATE; WBC,URINE 0-2 (0-5/HPF)
[2024-08-01 08:11] VITALS: BP 110/77; PULSE 89
== END 2024-08-01 08:27 | disposition other institution (70) ==
LOC: MW.ED 02:43 → UNDOADMOB 07:37 → MW.MS 07:37 → UNDODISOB 08:15
DX: N17.9 Acute kidney failure, unspecified (principal); I10 Essential (primary) hypertension; J45.909 Unspecified asthma, uncomplicated; Z88.8 Allergy status to other drugs, medicaments and biological substances; Z79.51 Long term (current) use of inhaled steroids; Z79.899 Other long term (current) drug therapy
CPT/HCPCS: 36415; 74176; 80048; 80053; 80305; 81001; 82550; 83690; 84484; 85025; 87040; 93005; J7030; 99284

== ENCOUNTER 2025-01-26 21:00 | Emergency (ER) | payer MEDICARE, MEDICAID ==
[2025-01-26] MEDS ORDERED: Sodium Chloride 0.9% 2.5 ML Syringe FLUSH PRN (21:20)
[2025-01-26] MEDS ORDERED: Sodium Chloride 0.9% 10 ML Syringe FLUSH PRN (21:20)
[2025-01-26 22:23] LABS: MEAN PLATELET VOLUME 8.6 fL (9.4-12.3); NRBC ABSOLUTE 0.00 K/uL (0.00-0.02); NRBC PERCENT 0.0 /100WBC (0.0-0.2); PLATELET COUNT,PLT 399 K/uL (150-400); RED BLOOD CELL COUNT 4.47 M/uL (4.10-5.30); WHITE BLOOD CELL COUNT,WBC 14.02 K/uL (3.9-11.3)
[2025-01-26] MEDS: fentaNYL 100 MCG/2 ML SDV IVPUSH ONE (22:23)
[2025-01-26] MEDS: droPERidol 2.5 MG/ML SDV IVPUSH ONE (22:24)
[2025-01-26 22:51] LABS: A/G RATIO 0.8 (0.9-1.6); ALANINE AMINOTRANSFERASE,ALT 31.0 IU/L (14-63); ASPARTATE AMNIOTRANSFERASE,AST 23.0 IU/L (15-37); BILIRUBIN TOTAL 0.2 mg/dL (0.2-1.0); BLOOD UREA NITROGEN,BUN 8.0 mg/dL (7.0-18.0); CARBON DIOXIDE,CO2 27.4 mmol/L (21.0-32.0); CHLORIDE,CL 104.0 mmol/L (98-107); CREATININE 1.5 mg/dL (0.6-1.0); EST CRCL DRUG DOSING (CG) 45.26 mL/min; GLUCOSE RANDOM 103.0 mg/dL (74-106); POTASSIUM,K 4.0 mmol/L (3.5-5.1); PRO B-TYPE NATRIUR PEPT,BNPPRO 204.0 pg/mL (0-125); PROTEIN TOTAL,TP 7.0 g/dL (6.4-8.2); SODIUM,NA 139.0 mmol/L (136-145)
[2025-01-26 22:54] LABS: ESTIMATED GFR 42.0 mL/min (>60)
[2025-01-26 22:59] LABS: BAND ABSOLUTE MAN 0.00; BAND PERCENT MAN 0 %; BASOPHILS ABSOLUTE MAN 0.00 K/uL (0.00-0.20); BASOPHILS PERCENT MAN 0 % (0-1); EOSINOPHILS ABSOLUTE MAN 0.42 K/uL (0.00-0.45); EOSINOPHILS PERCENT MAN 3 % (0-6); LYMPHOCYTES ABSOLUTE MAN 4.07 K/uL (1.00-4.80); LYMPHOCYTES PERCENT MAN 29 % (24-44); MONOCYTES ABSOLUTE MAN 0.70 K/uL (0.00-0.80); MONOCYTES PERCENT MAN 5 % (0-8); SEG NEUTROPHILS ABSOLUTE MAN 8.83 K/uL (1.80-7.70); SEG NEUTROPHILS PERCENT MAN 63 % (41-71)
[2025-01-26 23:37] LABS: GLUCOSE,URINE NEGATIVE (NEGATIVE); OCCULT BLOOD,URINE NEGATIVE (NEGATIVE)
[2025-01-26 23:38] LABS: APPEARANCE,URINE HAZY
[2025-01-26 23:50] LABS: AMPHETAMINES SCREEN, URINE PRESUMPTIVE POSITIVE (CUTOFF=500); BUPRENORPHINE SCREEN,URINE NEGATIVE (CUTOFF=10); METHADONE SCREEN, URINE NEGATIVE (CUTOFF=200); METHAMPHETAMINES SCREEN, URINE PRESUMPTIVE POSITIVE (CUTOFF=500); OXYCODONE SCREEN,URINE NEGATIVE (CUT0FF=100); PCP SCREEN,URINE NEGATIVE (CUTOFF=25); THC SCREEN,URINE 20 NG/ML PRESUMPTIVE POSITIVE (CUTOFF=50)
[2025-01-27 00:43] VITALS: BP 147/122; PULSE 108
== END 2025-01-27 00:41 | disposition home or self-care (01) ==
LOC: MW.ED 21:00
DX: K80.50 Calculus of bile duct without cholangitis or cholecystitis without obstruction (principal); F19.10 Other psychoactive substance abuse, uncomplicated; I10 Essential (primary) hypertension; Z75.3 Unavailability and inaccessibility of health-care facilities; Z88.1 Allergy status to other antibiotic agents; Z79.899 Other long term (current) drug therapy
CPT/HCPCS: 36415; 71045; 71250; 74176; 80053; 80305; 81003; 83690; 83880; 84484; 85025; 87086; 93005; 96374; 96375; 99284; J1790; J3010; J7030; 93010